=== PATIENT | male | born 1945 | race Caucasian/White ===

== ENCOUNTER 2019-10-31 08:15 | Day surgery (SDC) | payer OTHER, SELFPAY ==
[2019-10-31] VITALS (7 sets, daily range): BP systolic 140–172; BP diastolic 92–106; PULSE 74–94; RESP 12–20; TEMP 36.6–36.7; O2SAT 94–100
[2019-10-31] MEDS: sodium chloride 0.9% 1,000 ML 30 ML IV (07:36)
--- NOTE | 2019-10-31 07:59 | ANES.PREANES ---
Pre-Anesthetic Assessment Pre-Anesthetic Assessment: Height/Weight: Height 1.78 m Weight 92.986 kg Preop Diagnosis: Symptomatic left inguinal hernia Proposed Procedure: Operation Date: 10/31/19 08:45 Proposed Procedures p Laparoscopic Inguinal Hernia Repair w/Mesh 09509 k40.90(Left) - Kobi Campos MD Last intake: Intake Last Liquid Date 10/30/19 Last Liquid Time 15:30 Last Solid Date 10/30/19 Last Solid Time 15:00 Social: Social History: No alcohol and No tobacco Exam: Pre-Anes Outpt Exam: alert, oriented x 3, clear to auscultation bilaterally and regular rate & rhythm Airway: Submandibular: WNL Cervical ROM: WNL MP: 2 Dentition: Other (ok) History/ROS: No significant history except as noted Pulmonary: Pulmonary: Sleep apnea CV/HEM: CV/HEM: HTN : : None reported Hepatic: Comments: fatty liver GI: GI: GERD Comments: not well controlled Metabolic: Metabolic: Hyperlipidemia Musc/skel: Musc/skel: OA/DJD Neuropsych: Neuropsych: Dementia Anesthetic Plan: ASA status: III Anesthesia: Anesthesia Evaluation and General Risk of > 500 ml blood loss (7ml/kg in children): No Other Pertinent Information: slow to wake, very sensitive Meds/Allergies Current Medications: Current Medications Generic Name Dose Route Start Last Admin Trade Name Freq PRN Reason Stop Dose Admin Sodium Chloride 1,000 mls @ 30 ml s/hr 10/31/19 07:30 10/31/19 07:36 Sodium Chloride 0.9% IV 11/01/19 07:29 30 mls/hr .Q24H NURY Administration PFSH Anesthesia PFSH: Medical History Abdominal pain (Acute) Constipation (Acute) Diverticulosis (Acute) Dysphagia (Acute) GERD (gastroesophageal reflux disease) (Acute) Hiatal hernia (Acute) Hyperlipidemia (Acute) Hypertension (Acute) IBS (irritable bowel syndrome) (Acute) Left inguinal hernia (Acute) Major depressive disorder (Acute) Surgical History History of colonoscopy (Acute) Family History Father Cancer lung Family/Other Diabetes Hypertension sister Denies family history of Anesthesia complication Bleeding disorder Social History Smoking and tobacco status: never smoked Second hand smoke exposure: No Alcohol intake: never Adopted: No Caregiver/support person: Yes Lives independently: Yes Household members: spouse Housing: House Marital status: Highest education level completed: High School Graduate service: Yes (12 years with [employer]) Current occupational status: retired Current occupational exposures/hazards: No Pets and animals: No History of recent travel: Yes Leisure activites: exercise Sexually active: No Current gender identity: Male Tessa/Latter Day: Hinduism Special tessa needs: No Agree to transfusion: No Financial difficulty paying for basics: Decline to Answer Data Anesthesia Cardiac Studies: No Data to Display
--- NOTE | 2019-10-31 08:11 | P.HPUD_ITS ---
H&P update H&P Update: DATE OF SURGERY/PROCEDURE: 10/31/19 DATE H&P PERFORMED: H&P UPDATE INFORMATION: H&P completed within last 30 days and No changes to prior documentation PREOP DIAGNOSIS: Symptomatic left groin hernia PLANNED PROCEDURE: Operation Date: 10/31/19 08:45 Proposed Procedures p Laparoscopic Inguinal Hernia Repair w/Mesh 54245 k40.90(Left) - Kobi Campos MD Full H&P Medications/Allergies: Current Medications: Current Medications Generic Name Dose Route Start Last Admin Trade Name Freq PRN Reason Stop Dose Admin Sodium Chloride 1,000 mls @ 30 ml s/hr 10/31/19 07:30 10/31/19 07:36 Sodium Chloride 0.9% IV 11/01/19 07:29 30 mls/hr .Q24H NURY Administration Perinent History: Medical/Surgical History: Medical History (Updated 10/31/19 @ 08:00 by Rogelio Franks MD) Abdominal pain (Acute) Constipation (Acute) Diverticulosis (Acute) Dysphagia (Acute) GERD (gastroesophageal reflux disease) (Acute) Hiatal hernia (Acute) Hyperlipidemia (Acute) Hypertension (Acute) IBS (irritable bowel syndrome) (Acute) Left inguinal hernia (Acute) Major depressive disorder (Acute) Family History: Family History (Updated 10/25/19 @ 14:42 by Vira Good RN) Father Cancer lung Family/Other Diabetes Hypertension sister Denies family history of Anesthesia complication Bleeding disorder Social History: Social History Smoking and tobacco status: never smoked Second hand smoke exposure: No Alcohol intake: never Adopted: No Caregiver/support person: Yes Lives independently: Yes Household members: spouse Housing: House Marital status: Highest education level completed: High School Graduate service: Yes (12 years with [employer]) Current occupational status: retired Current occupational exposures/hazards: No Pets and animals: No History of recent travel: Yes Leisure activites: exercise Sexually active: No Current gender identity: Male Tessa/Pentecostalism: Pentecostalism Special tessa needs: No Agree to transfusion: No Financial difficulty paying for basics: Decline to Answer
[2019-10-31] MEDS: lidocaine 2% INJ 20 mL INJECTION (10:16)
--- NOTE | 2019-10-31 10:28 | SUR.OPER ---
[id number] - Pt's Whitley notified of surgery start via her cell phone [id number] - Whitley updated on surgery progress and pt status via her cell phone.
--- NOTE | 2019-10-31 10:34 | P.OP_ITS ---
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 Patient was identified in the holding area ,patient was transferred to the operating room where he was placed in supine position, with both arms were tucked, antibiotic was given with induction, endotracheal tube was placed per anesthesia, Goode catheter was inserted by the circulating nurse and revealed clear urine, prep and drape of the abdomen was done under the usual sterile technique as well as the scrotal area. Time-out was done verifying the patient's name/date of /planned procedure destination after the procedure, all were in agreement. SCDs confirmed to be functioning, preoperative antibiotics administered per protocol, and beta munira protocol was confirmed. A vertical skin incision of 1.2 cm was made with 11 blade knife through the supra umbilicus , incision was carried down to the subcutaneous tissue and deepened to identify the anterior fascia, two stay sutures were applied to the fascia, and safe entrance to the abdominal cavity was achieved, a Singer trocar technique safe entry to the abdominal cavity was achieved verified by using 10 mm zero degree laparoscopy, switched to a 30 degrees scope,low flow followed by a higher flow of CO2 gas up to 15 mmHg. There was no evidence of injury to intra-abdominal structures from the port entry, attention was deviated to both groins, there was a large direct hernia defect with herniation of peritoneum and preperitoneal fat was noted on the right side, two 5 mm ports were placed on the right and left lateral aspect of the abdomen slightly above the level of the umbilicus, under direct visualiza tion, anesthesia 2% lidocaine local was injected at all trocar sites prior to incisions. Patient was noticed to have a large left inguinal hernia including the sigmoid colon The peritoneum above the level of the iliopubic tract was incised to the left of the midline and dissection was performed to create a preperitoneal space medial to lateral aspect up to anterior superior iliac spine on the left side. Dissection was continued onto the medial aspect and the left spermatic was identified, there was evidence of direct and Indirect inguinal hernia .the sac was dissected. As it applied medial to the left inferior epigastric vessels/ dissection was performed to clear the space lateral to the spermatic cord and dorsomedial to it, the hernia sac was reduced and retracted far back, so there w as an evidence of a small indirect inguinal hernia that was dissected. Then a large left 3-D mesh was rolled and placed into the abdominal cavity through the Singer port, after the mesh was introduced it was positioned to lie in the myopectineal orifice and the mesh was unrolled and this covered the entire my myope pectineal orifice. Intra-abdominal pressure was dropped to 12 mmHg to help placement of the mesh good position On the lateral aspect of the mesh extended up to the anterior superior iliac spine on the medial aspect the mesh crossed the midline onto the right side, then using absorbable tacks, placed above the iliopubic tract onto the rectus abdominis muscle on the medial aspect and also to the lateral abdominal wall superomedial to the sacroiliac spine, then the mesh was also anchored to the pubis and the Jf's ligament inferiorly. The peritoneal leaflets were then brought together to cover the mesh and isolated from the other viscera, extra tacks were used to secure the peritoneum in good position. Final look demonstrated good hemostasis and the mesh in good position A total of 20 mL Exparel 40 ml Normal saline 20 ml bupivacaine 0.25% were injected at the remaining of the tacks site and trocar sites as well Final look demonstrated good hemostasis, then the abdomen was desufflated while holding the peritoneum to make sure there is no herniation blue the mesh. All ports were removed. Then the fascia on the supra umbilical fascial defect was closed using 0 Vicryl under direct visualization using fascial closure device Get Rose. All skin incisions were closed with 4-0 Monocryl subcuticular suture and Dermabond was applied. The patient tolerated the procedure well, Goode catheter was taken out ,got extubated and was transferred to the recovery area in stable condition All counts of instruments, needles and sponges were completed I was present for the whole entire procedure
--- NOTE | 2019-10-31 10:47 | SUR.PHASEI ---
1045- RECEIVED PATIENT IN PACU FROM OR VIA [facility]. RESP ARE EVEN AND NONLABORED. SIMPLE MASK APPLIED AT 6LPM, SAT 100%. HE IS LETHARGIC. EXOFIN TO UMBILICUS IS DRY AND INTACT WITH FLUFFS AND SCROTAL SUPPORT. NO S/S PAIN OR NAUSEA
== END 2019-10-31 13:07 | disposition home or self-care (01) ==
LOC: OR 13:33
PROVIDERS: Family Provider Family Medicine; PCP Family Medicine; Visit Provider Surgery
PROC: (CPT 49650; principal; 2019-10-31 08:15)
DX: K40.30 Unilateral inguinal hernia, with obstruction, without gangrene, not specified as recurrent (principal); E78.5 Hyperlipidemia, unspecified; K21.9 Gastro-esophageal reflux disease without esophagitis; I10 Essential (primary) hypertension; F32.9 Major depressive disorder, single episode, unspecified; Z83.3 Family history of diabetes mellitus; Z82.49 Family history of ischemic heart disease and other diseases of the circulatory system; G47.30 Sleep apnea, unspecified; M19.90 Unspecified osteoarthritis, unspecified site; F03.90 Unspecified dementia, unspecified severity, without behavioral disturbance, psychotic disturbance, mood disturbance, and anxiety
CPT/HCPCS: 49650; 12345; 51702; 96365; C1781; C9290; J0131; J0690; J2001; J2405; J2704; J3010; J3490; J7030

== ENCOUNTER 2022-02-10 10:53 | Emergency (ER) | payer OTHER, SELFPAY ==
--- NOTE | 2022-02-10 11:06 | ED_ITS ---
HPI - Chest Pain General: Stated Complaint: Chest Pain Time Seen by Provider: 02/10/22 10:55 [facility] [place] ED PFSH: Medical History Abdominal pain Constipation Diverticulosis Dysphagia GERD (gastroesophageal reflux disease) Hiatal hernia Hyperlipidemia Hypertension IBS (irritable bowel syndrome) Left inguinal hernia Major depressive disorder Surgical History History of colonoscopy History of left inguinal hernia repair (~10/2019) Family History Father Cancer lung Family/Other Diabetes Hypertension sister Denies family history of Anesthesia complication Bleeding disorder Social History Smoking and tobacco status: never smoked Second hand smoke exposure: No Alcohol intake: never Adopted: No Caregiver/support person: Yes Lives independently: Yes Household members: spouse Housing: House Marital status: Highest education level completed: High School Graduate service: Yes (12 years with [employer]) branch: [employer] Current occupational status: retired Current occupational exposures/hazards: No Pets and animals: No History of recent travel: Yes Leisure activites: exercise Sexually active: No Current gender identity: Male Tessa/Jain: Restorationism Special tessa needs: No Agree to transfusion: No Financial difficulty paying for basics: Decline to Answer Discharge Plan Discharge Condition: Stable Prescriptions: No Action citalopram 40 mg tablet 20 mg PO QDAY 0RF donepezil 10 mg tablet 10 mg PO QDAY 0RF enalapril maleate 5 mg tablet 5 mg PO QDAY 0RF famotidine 20 mg tablet 20 mg PO BID 0RF omega-3 fatty acids [Fish Oil Concentrate] 1,000 mg capsule 1,000 mg PO QDAY 0RF polyethylene glycol 3350 17 gram/dose powder 17 gm PO QDAY 0RF simvastatin 80 mg tablet 80 mg PO QDAY 0RF sucralfate 1 gram tablet 1 gm PO Q6H 0RF dicyclomine 20 mg tablet 20 mg PO BID 0RF cyanocobalamin (vitamin B-12) 100 mcg tablet 100 mcg PO QDAY 0RF aspirin 81 mg tablet,delayed release (DR/EC) 81 mg PO QDAY 0RF Hold Instructions: Resume on 11/02/19. Complete Multivitamin Tablet 1 tab PO QDAY 0RF [place] 5-325 mg tablet 1 tab PO Q6H PRN (Reason: pain) Qty: 28 0RF Referrals: Kiran Sharma [Primary Care Provider] - Coding Level of Care Code ED Pyrotechnic Mixer for Neeta Bucio
--- NOTE | 2022-02-10 11:07 | XR_ITS ---
WS: [id number] XR chest 1V portable [id number] REASON FOR EXAM: dyspnea/cough FINDINGS: Moderate tortuosity of the thoracic aorta without aneurysmal dilatation. Normal heart size. Calcified granulomatous disease in both hemithoraces. No acute pulmonary parenchymal or pleural abnormality. Bony thorax intact. XR/XR chest 1V portable [id number] IMPRESSION: No acute chest abnormality.
[2022-02-10 11:22] VITALS: BP 145/97; PULSE 88; RESP 18; TEMP 36.9; O2SAT 97
[2022-02-10 11:37] VITALS: BP 145/97; PULSE 88; RESP 18; TEMP 36.9; O2SAT 97
--- NOTE | 2022-02-10 11:47 | ED_ITS ---
HPI - Chest Pain General: Chief Complaint: Chest Pain Stated Complaint: Chest Pain Time Seen by Provider: 02/10/22 10:55 Source: patient Mode of arrival: ambulatory Limitations: no limitations History of Present Illness: 76-year-old male with last 3 days intermittently had episodes of shortness of breath and chest discomfort. He is not have any any at this time. No vomiting or diarrhea no radiation of the symptoms. He is not noticing thing that exacerbates or relieves his symptoms. MD complaint: chest pain Onset (ago): minute(s) Timing of current episode: episodic Prior episodes: No Onset: during rest Pain location: left chest Pain radiation: none Severity: mild Quality: aching and heaviness Relieving factors: nothing Exacerbating factors: nothing Associated symptoms: Reports dyspnea; Deny abdominal pain, diaphoresis, fever(s), leg edema, nausea, palpitations, sense of impending doom, syncope or vomiting Treatment prior to arrival: none Review of Systems Const: Denies: fever(s) or diaphoresis ENMT: Denies: throat pain, ear or mastoid pain, nasal discharge or nasal congestion Card: Denies: palpitations or syncope Resp: Reports: dyspnea GI: Denies: abdominal pain, nausea or vomiting : Denies: flank pain, difficulty urinating, dysuria, urinary frequency or urinary urgency Skin/Breast: Denies: rash or pruritus [facility] PFSH: Medical History (Updated 02/10/22 @ 14:25 by Raman Riddle DO) Abdominal pain Constipation Diverticulosis Dysphagia GERD (gastroesophageal reflux disease) Hiatal hernia Hyperlipidemia Hypertension IBS (irritable bowel syndrome) Left inguinal hernia Major depressive disorder Surgical History History of colonoscopy History of left inguinal hernia repair (~10/2019) Family History Father Cancer lung Family/Other Diabetes Hypertension sister Denies family history of Anesthesia complication Bleeding disorder Social History Smoking and tobacco status: never smoked Second hand smoke exposure: No Alcohol intake: never Adopted: No Caregiver/support person: Yes Lives independently: Yes Household members: spouse Housing: House Marital status: Highest education level completed: High School Graduate service: Yes (12 years with [employer]) branch: [employer] Current occupational status: retired Current occupational exposures/hazards: No Pets and animals: No History of recent travel: Yes Leisure activites: exercise Sexually active: No Current gender identity: Male Tessa/Restorationism: Episcopalian Special tessa needs: No Agree to transfusion: No Financial difficulty paying for basics: Decline to Answer Physical Exam Const: COMMON NORMALS: no acute distress GENERAL APPEARANCE: cooperative and comfortable ORIENTATION/CONSCIOUSNESS: Yes awake, Yes oriented to person, Yes oriented to place and Yes oriented to time HENMT: COMMON NORMALS: normocephalic, atraumatic and hearing grossly normal bilaterally HEAD & SCALP: normocephalic and atraumatic Neck/C-Spine: COMMON NORMALS: no JVD Resp: COMMON NORMALS: normal respiratory effort, No retractions, No use of accessory muscles and clear to auscultation bilaterally AUSCULTATION: clear to auscultation bilaterally Cardio: COMMON NORMALS: no JVD, regular rate, regular rhythm and No murmurs present (Cardio) RATE: regular rate RHYTHM: regular rhythm GI: COMMON NORMALS: Soft to palpation and No hepatosplenomegaly present AUSCULTATION: Yes normoactive bowel sounds PALPATION: Yes Soft to palpation, No Tenderness to palpation present (GI), No Guarding due to palpation present (GI) and Yes No hepatosplenomegaly present Extremity: COMMON NORMALS: normal to inspection, capillary refill normal, no clubbing, cyanosis or edema, no calf tenderness and no pedal edema Neuro: SENSORIUM/ORIENTATION: Yes oriented to person, Yes oriented to place and Yes oriented to time Skin: COMMON NORMALS: no rashes or lesions noted GENERAL SKIN EXAM: no rashes or lesions noted Course Vital Signs: Vital signs: Vital Signs Temperature 98.5 F 02/10/22 11:37 Pulse Rate 88 02/10/22 11:37 Respiratory Rate 18 02/10/22 11:37 Blood Pressure 145/97 02/10/22 11:37 Pulse Oximetry 97 02/10/22 11:37 MDM - Chest Pain Medical Decision Making No symptoms at this time. We will go and discharge patient home we will set him up for outpatient stress testing,. Because he wants to do this through the [facility] cardiology first. Medical Records I reviewed the patient's medical records. Lab Data I reviewed the patient's lab results. : 02/10/22 11:45 02/10/22 11:45 Radiology Impressions Chest X-Ray 02/10/22 11:07 IMPRESSION: No acute chest abnormality. Laboratory Results WBC 8.0 10^3/uL (4.0-10.0) 02/10/22 11:45 RBC 5.43 10^6/uL (4.1-5.3) H 02/10/22 11:45 Hgb 15.9 g/dL (11.7-16.6) 02/10/22 11:45 Hct 47.3 % (42.0-52.0) 02/10/22 11:45 MCV 87.1 fl (80-94) 02/10/22 11:45 MCH 29.3 pg (28.0-34.0) 02/10/22 11:45 MCHC 33.6 g/dL (30.0-36.0) 02/10/22 11:45 RDW 12.6 % (12.1-15.1) 02/10/22 11:45 Plt Count 165 10^3/cmm (130-400) 02/10/22 11:45 MPV 10.6 fL (7.4-10.4) H 02/10/22 11:45 Neut % (Auto) 58.8 % 02/10/22 11:45 Lymph % (Auto) 26.1 % 02/10/22 11:45 [place] % (Auto) 11.9 % 02/10/22 11:45 Eos % (Auto) 2.0 % 02/10/22 11:45 Baso % (Auto) 0.9 % 02/10/22 11:45 Neut # (Auto) 4.68 10^3/uL (1.8-7.7) 02/10/22 11:45 Lymph # (Auto) 2.1 10^3/uL (0.8-4.8) 02/10/22 11:45 [place] # (Auto) 1.0 10^3/uL (0.2-0.9) H 02/10/22 11:45 Eos # (Auto) 0.2 10^3/uL (0.0-0.8) 02/10/22 11:45 Baso # (Auto) 0.1 10^3/uL (0.0-0.1) 02/10/22 11:45 Nucleated RBC % (auto) 0 % 02/10/22 11:45 Nucleated RBCs # 0.0 /100WBC 02/10/22 11:45 Sodium 137 mmol/L (136-145) 02/10/22 11:45 Potassium 4.4 mmol/L (3.5-5.1) 02/10/22 11:45 Chloride 101 mmol/L (98-107) 02/10/22 11:45 Carbon Dioxide 23 mmol/L (22-29) 02/10/22 11:45 Anion Gap 17.4 (5-19) 02/10/22 11:45 BUN 13 mg/dL (8-23) 02/10/22 11:45 Creatinine 0.9 mg/dL (0.7-1.2) 02/10/22 11:45 GFR Calculation Not Reportable 02/10/22 11:45 Glucose 96 mg/dL (65-115) 02/10/22 11:45 Calculated Osmolality 284 mOsm/kg (285-295) L 02/10/22 11:45 Calcium 9.9 mg/dL (8.5-10.5) 02/10/22 11:45 Total Bilirubin 0.5 mg/dL (0.15-1.2) 02/10/22 11:45 AST 31 U/L (0-40) 02/10/22 11:45 ALT 33 U/L (0-41) 02/10/22 11:45 Alkaline Phosphatase 40 IU/L (40-130) 02/10/22 11:45 Troponin T Baseline 6 ng/L (0-15) 02/10/22 11:45 Troponin T 120 Minute 6.44 ng/L (0-15) 02/10/22 13:26 Delta Troponin T 0.44 ABS# (0-10) 02/10/22 13:26 Total Protein 7.9 g/dL (6.6-8.7) 02/10/22 11:45 Albumin 4.9 g/dL (3.5-5.2) 02/10/22 11:45 Globulin 3.0 g/dL (1.3-4.6) 02/10/22 11:45 Discharge Plan Discharge Patient Disposition: Home Clinical Impression: Atypical chest pain, Hypertension Condition: Stable Prescriptions: New isosorbide mononitrate 30 mg tablet extended release 24 hr 30 mg PO DAILY Qty: 30 0RF No Action donepezil 10 mg tablet 10 mg PO BEDTIME 0RF enalapril maleate 5 mg tablet 2.5 mg PO QAM 0RF famotidine 20 mg tablet 20 mg PO BID 0RF polyethylene glycol 3350 17 gram/dose powder 17 gm PO BEDTIME 0RF simvastatin 80 mg tablet 40 mg PO BEDTIME 0RF dicyclomine 20 mg tablet 20 mg PO BID 0RF Fish Oil Concentrate 1,000 mg Capsule 2,000 mg PO BID 0RF Men's Multivitamin 400-20-300 mcg Tablet 1 tab PO DAILY 0RF Vitamin B-12 1 tab PO DAILY 0RF Vitamin C 1 tab PO DAILY 0RF Vitamin D3 1 cap PO DAILY 0RF Discharge Orders: Discharge ED (Routine); Ordered 02/10/22 Ordered By: Raman Riddle Referrals: Kiran Sharma [Primary Care Provider] - Discharge Diet: Usual diet Discharge Activity: Limit activity as instructed Patient Instructions: Opioid Safety Activity Restrictions/Additional Instructions: Avoid strenuous activity. Case management make arrangements for you to follow- up with cardiology. Coding Level of Care Code ED Laboratory Mechanic Helper for Neeta Fwd Exam Comprehensive
[2022-02-10] MEDS: aspirin 81 mg Chew Tablet 324 MG PO (12:04)
[2022-02-10 12:29] LABS: Troponin(5th) Baseline 6 ng/L (0-15)
--- NOTE | 2022-02-10 13:08 | ECG_ITS ---
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 Measurements Intervals [place] Rate: 70 P: 44 VT: 200 QRS: 59 QRSD: 89 T: 47 QT: 379 QTc: 410 Interpretive Statements SINUS RHYTHM Compared to ECG 02/10/2022 11:25:57 No significant changes Electronically Signed On 02-10-2022 17:30:19 CDT by Jared Rae M.D. [id number]
[2022-02-10 13:20] LABS: Basophils # 0.1 10^3/uL (0.0-0.1); Basophils % 0.9 %; Eosinophils # 0.2 10^3/uL (0.0-0.8); Hematocrit 47.3 % (42.0-52.0); Hemoglobin 15.9 g/dL (11.7-16.6); Lymphocytes # 2.1 10^3/uL (0.8-4.8); Lymphocytes % 26.1 %; Mean Corpuscular HGB Conc 33.6 g/dL (30.0-36.0); Mean Corpuscular Hemoglobin 29.3 pg (28.0-34.0); Mean Corpuscular Volume 87.1 fl (80-94); Mean Platelet Volume 10.6 fL (7.4-10.4); Monocytes % 11.9 %; Neutrophils # 4.68 10^3/uL (1.8-7.7); Neutrophils % 58.8 %; Nucleated Red Blood Cells % 0 %; Platelet Count 165 10^3/cmm (130-400); Red Blood Count 5.43 10^6/uL (4.1-5.3); Red Cell Distribution Width 12.6 % (12.1-15.1)
[2022-02-10 13:30] LABS: Alanine Aminotransferase 33 U/L (0-41); Albumin Level 4.9 g/dL (3.5-5.2); Alkaline Phosphatase 40 IU/L (40-130); Blood Urea Nitrogen 13 mg/dL (8-23); Calcium 9.9 mg/dL (8.5-10.5); Carbon Dioxide 23 mmol/L (22-29); Chloride 101 mmol/L (98-107); Glucose 96 mg/dL (65-115); Osmolality Calculated 284 mOsm/kg (285-295); Sodium 137 mmol/L (136-145); Total Bilirubin 0.5 mg/dL (0.15-1.2); Total Protein 7.9 g/dL (6.6-8.7)
[2022-02-10 13:31] LABS: Anion Gap 17.4 (5-19); Aspartate Amino Transferase 31 U/L (0-40); Potassium 4.4 mmol/L (3.5-5.1)
[2022-02-10 14:00] LABS: Troponin 5 2HR 6.44 ng/L (0-15)
[2022-02-10 14:11] LABS: Troponin 5 2HR Delta 0.44 ABS# (0-10)
[2022-02-10 14:51] VITALS: BP 143/88; PULSE 78; RESP 20; O2SAT 97
--- NOTE | 2022-02-10 17:08 | ECG_ITS ---
[facility] Test Date: 2022-02-10 Pat Name: Santos Delaney Department: Room: Gender: Male Lactation Nurse: : 1945 Requested By: Raman Haynes Order Number: [id number] Noe MD: Jared Rae M.D. Measurements Intervals [place] Rate: 84 P: 56 VA: 185 QRS: 64 QRSD: 87 T: 58 QT: 355 QTc: 421 Interpretive Statements SINUS RHYTHM POSSIBLE LEFT ATRIAL ENLARGEMENT [-0.1mV P-WAVE IN V1/V2] Compared to ECG 09/21/2019 15:12:10 No significant changes Electronically Signed On 02-10-2022 17:30:43 CDT by Jared Rae M.D. [email or web address]
== END 2022-02-10 14:54 | disposition home or self-care (01) ==
PROVIDERS: Emergency Provider Family Medicine; Family Provider Family Medicine; PCP Family Medicine
DX: R07.89 Other chest pain (principal); I10 Essential (primary) hypertension; E78.5 Hyperlipidemia, unspecified; K21.9 Gastro-esophageal reflux disease without esophagitis
CPT/HCPCS: 71045; 80053; 84484; 85025; 93005; 99284

== ENCOUNTER 2022-02-11 17:40 | Emergency (ER) | payer OTHER, SELFPAY ==
[2022-02-11] VITALS (7 sets, daily range): BP systolic 112–139; BP diastolic 71–85; PULSE 82–102; RESP 16–18; TEMP 36.8; O2SAT 94–95; BMI 30.1
--- NOTE | 2022-02-11 18:20 | XRR_ITS ---
PROCEDURE INFORMATION: Exam: XR Chest Exam date and time: 02/11/2022 6:26 PM Age: 76 years old Clinical indication: Other: Dizzy TECHNIQUE: Imaging protocol: XR of the chest. Views: 1 view. COMPARISON: CR XR chest 1V portable [id number] 02/10/2022 11:21 AM FINDINGS: Lungs: Unremarkable. No consolidation. Pleural spaces: Unremarkable. No pleural effusion. No pneumothorax. Heart/Mediastinum: Unremarkable. No cardiomegaly. Bones/joints: Unremarkable. XR/XR chest 1V portable [id number] IMPRESSION: No acute findings.
--- NOTE | 2022-02-11 18:20 | CTR_ITS ---
PROCEDURE INFORMATION: Exam: CT Head Without Contrast Exam date and time: 02/11/2022 7:08 PM Age: 76 years old Clinical indication: Weakness, extremity and other: Low blood pressure; Bilateral; Additional info: Dizzy TECHNIQUE: Imaging protocol: Computed tomography of the head without contrast. Radiation optimization: All CT scans at this facility use at least one of these dose optimization techniques: automated exposure control; mA and/or kV adjustment per patient size (includes targeted exams where dose is matched to clinical indication); or iterative reconstruction. COMPARISON: CT neck w con* [id number] 09/12/2019 7:31 AM RADIATION DOSE METRICS: Total DLP (mGy-cm): 864.7 FINDINGS: Brain: No hemorrhage. No edema. Mild diffuse cerebral atrophy and sequela of chronic small vessel ischemic disease. No mass effect. Cerebral ventricles: No ventriculomegaly. Paranasal sinuses: Visualized sinuses are unremarkable. No fluid levels. Mastoid air cells: Visualized mastoid air cells are well aerated. Bones/joints: Unremarkable. No acute fracture. Soft tissues: Unremarkable. CT/CT head wo con* [id number] IMPRESSION: No acute intracranial abnormality.
--- NOTE | 2022-02-11 18:25 | W.ED.GENADLT ---
HPI - General Adult General: Chief complaint: General Medical Stated complaint: Low Bloodpressure extreme Weakness Time Seen by Provider: 02/11/22 18:00 Source: patient Mode of arrival: ambulatory Limitations: no limitations History of Present Illness: 76-year-old male who states that over the last 2 days has been having severe vertigo and dizziness getting much worse today. He states is not able to ambulate he states anytime he tries to move he feels like it spinning and he has to get on his knees and crawl. He has severe nausea and vomiting states that somewhat improved with rest. Denies any chest pain denies any fevers no other deficits noted Associated symptoms: Deny chest pain, dyspnea, nausea, rash or vomiting Review of Systems Const: Denies: fever(s), chills, body aches or change in appetite Eyes: Denies: blurry vision or eye discomfort ENMT: Denies: throat pain or dental pain Card: Denies: chest pain Resp: Denies: dyspnea GI: Denies: abdominal pain, nausea, vomiting or diarrhea : Denies: dysuria Musc: Denies: neck pain or back pain Skin/Breast: Denies: rash Neuro: Reports: dizziness and vertigo Psych: Denies: depression Margarito/Lymph: Denies: easy bruising All/Imm: Denies: urticaria PFSH ED PFSH: Medical History (Updated 02/11/22 @ 21:07 by Rogelio Tillman MD) Abdominal pain Constipation Diverticulosis Dysphagia GERD (gastroesophageal reflux disease) Hiatal hernia Hyperlipidemia Hypertension IBS (irritable bowel syndrome) Left inguinal hernia Major depressive disorder Surgical History History of colonoscopy History of left inguinal hernia repair (~10/2019) Family History Father Cancer lung Family/Other Diabetes Hypertension sister Denies family history of Anesthesia complication Bleeding disorder Social History Smoking and tobacco status: never smoked Second hand smoke exposure: No Alcohol intake: never Adopted: No Caregiver/support person: Yes Lives independently: Yes Household members: spouse Housing: House Marital status: Highest education level completed: High School Graduate service: Yes (12 years with [employer]) branch: [employer] Current occupational status: retired Current occupational exposures/hazards: No Pets and animals: No History of recent travel: Yes Leisure activites: exercise Sexually active: No Current gender identity: Male Tessa/Adventist: Mormonism Special tessa needs: No Agree to transfusion: No Financial difficulty paying for basics: Decline to Answer Physical Exam Const: COMMON NORMALS: no acute distress, patient oriented x3 and healthy appearing HENMT: COMMON NORMALS: normocephalic and atraumatic HEAD & SCALP: normocephalic and atraumatic Eye: COMMON NORMALS: Equal, round and reactive pupils present and EOMs intact bilaterally PUPIL: Yes Equal, round and reactive pupils present OTHER: Resting nystagmus Neck/C-Spine: COMMON NORMALS: full ROM and supple Chest: COMMONS NORMALS: normal inspection of the chest and normal palpation of entire chest wall Resp: COMMON NORMALS: normal respiratory effort, No retractions, No use of accessory muscles and clear to auscultation bilaterally AUSCULTATION: clear to auscultation bilaterally Cardio: COMMON NORMALS: regular rate, regular rhythm and No murmurs present (Cardio) RATE: regular rate RHYTHM: regular rhythm GI: COMMON NORMALS: Normal to inspection, nondistended, normoactive bowel sounds present, Soft to palpation, non-tender and no masses PALPATION: Yes Soft to palpation Extremity: COMMON NORMALS: normal to inspection and full ROM Neuro: COMMON NORMALS: patient oriented x3, moves all extremities and no focal motor deficits Psych: COMMON NORMALS: mental status grossly normal, Normal thought process present and cooperative THOUGHT PROCESS: Normal thought process present Skin: COMMON NORMALS: no rashes or lesions noted and no wounds GENERAL SKIN EXAM: no rashes or lesions noted Course Vital Signs: Vital signs: Vital Signs Temperature 98.2 F 02/11/22 17:53 Pulse Rate 88 02/11/22 19:25 Respiratory Rate 18 02/11/22 17:53 Blood Pressure 119/83 02/11/22 19:25 Pulse Oximetry 94 02/11/22 19:25 [facility] [place] - General Adult Medical Decision Making Patient presents with vertigo is likely peripheral in nature is worse with sudden movements improved with rest his symptoms have resolved here after Antivert I ambulated him he is able to ambulate the halls without any problems no more vertigo at all CTA was normal no signs of a posterior stroke I feel he is stable for discharge he is follow-up with PCP next week return if worsening will prescribe him Antivert for home he understands agrees to plan. Lab Data : 02/11/22 18:45 02/11/22 18:45 Radiology Impressions Chest X-Ray 02/11/22 18:20 IMPRESSION: No acute findings. Head CT 02/11/22 18:20 IMPRESSION: No acute intracranial abnormality. Head/Neck CTA 02/11/22 19:59 IMPRESSION: No large vessel stenosis or occlusion. IMPRESSION: There is no significant stenosis or occlusion in the carotid or vertebral arteries in the neck. REFERENCES: NASCET CRITERIA. The degree of internal carotid artery stenosis is based on NASCET criteria. Normal is no stenosis. Mild is less than 50% stenosis. Moderate is 50-69% stenosis. Severe is 70% to 99% stenosis. Total occlusion is no detectable patent lumen. Laboratory Results WBC 7.9 10^3/uL (4.0-10.0) 02/11/22 18:45 RBC 5.10 10^6/uL (4.1-5.3) 02/11/22 18:45 Hgb 15.2 g/dL (11.7-16.6) 02/11/22 18:45 Hct 45.2 % (42.0-52.0) 02/11/22 18:45 MCV 88.6 fl (80-94) 02/11/22 18:45 MCH 29.8 pg (28.0-34.0) 02/11/22 18:45 MCHC 33.6 g/dL (30.0-36.0) 02/11/22 18:45 RDW 12.7 % (12.1-15.1) 02/11/22 18:45 Plt Count 163 10^3/cmm (130-400) 02/11/22 18:45 MPV 10.0 fL (7.4-10.4) 02/11/22 18:45 Neut % (Auto) 59.0 % 02/11/22 18:45 Lymph % (Auto) 25.1 % 02/11/22 18:45 [place] % (Auto) 12.8 % 02/11/22 18:45 Eos % (Auto) 2.1 % 02/11/22 18:45 Baso % (Auto) 0.6 % 02/11/22 18:45 Neut # (Auto) 4.67 10^3/uL (1.8-7.7) 02/11/22 18:45 Lymph # (Auto) 2.0 10^3/uL (0.8-4.8) 02/11/22 18:45 [place] # (Auto) 1.0 10^3/uL (0.2-0.9) H 02/11/22 18:45 Eos # (Auto) 0.2 10^3/uL (0.0-0.8) 02/11/22 18:45 Baso # (Auto) 0.1 10^3/uL (0.0-0.1) 02/11/22 18:45 Nucleated RBC % (auto) 0 % 02/11/22 18:45 Nucleated RBCs # 0.0 /100WBC 02/11/22 18:45 PT 14.00 SECONDS (12.1-14.9) 02/11/22 18:45 INR 1.05 (0.8-1.2) 02/11/22 18:45 Sodium 137 mmol/L (136-145) 02/11/22 18:45 Potassium 4.2 mmol/L (3.5-5.1) 02/11/22 18:45 Chloride 103 mmol/L (98-107) 02/11/22 18:45 Carbon Dioxide 25 mmol/L (22-29) 02/11/22 18:45 Anion Gap 13.2 (5-19) 02/11/22 18:45 BUN 13 mg/dL (8-23) 02/11/22 18:45 Creatinine 0.8 mg/dL (0.7-1.2) 02/11/22 18:45 GFR Calculation Not Reportable 02/11/22 18:45 Glucose 101 mg/dL (65-115) 02/11/22 18:45 Calculated Osmolality 284 mOsm/kg (285-295) L 02/11/22 18:45 Calcium 9.1 mg/dL (8.5-10.5) 02/11/22 18:45 Total Bilirubin 0.3 mg/dL (0.15-1.2) 02/11/22 18:45 AST 24 U/L (0-40) 02/11/22 18:45 ALT 22 U/L (0-41) 02/11/22 18:45 Alkaline Phosphatase 40 IU/L (40-130) 02/11/22 18:45 Total Protein 7.4 g/dL (6.6-8.7) 02/11/22 18:45 Albumin 4.3 g/dL (3.5-5.2) 02/11/22 18:45 Globulin 3.1 g/dL (1.3-4.6) 02/11/22 18:45 Discharge Plan Discharge Patient Disposition: Home Clinical Impression: Vertigo Condition: Stable Prescriptions: New Antivert 50 mg tablet 50 mg PO BID PRN (Reason: dizziness) Qty: 20 0RF No Action donepezil 10 mg tablet 10 mg PO BEDTIME 0RF enalapril maleate 5 mg tablet 2.5 mg PO QAM 0RF famotidine 20 mg tablet 20 mg PO BID 0RF polyethylene glycol 3350 17 gram/dose powder 17 gm PO BEDTIME 0RF simvastatin 80 mg tablet 40 mg PO BEDTIME 0RF dicyclomine 20 mg tablet 20 mg PO BID 0RF Fish Oil Concentrate 1,000 mg Capsule 2,000 mg PO BID 0RF Men's Multivitamin 400-20-300 mcg Tablet 1 tab PO DAILY 0RF Vitamin B-12 1 tab PO DAILY 0RF Vitamin C 1 tab PO DAILY 0RF Vitamin D3 1 cap PO DAILY 0RF isosorbide mononitrate 30 mg tablet extended release 24 hr 30 mg PO DAILY Qty: 30 0RF Discharge Orders: Discharge ED (Routine); Ordered 02/11/22 Ordered By: Rogelio Tillman Referrals: Kiran Sharma [Primary Care Provider] - 1-3 days Discharge Diet: Advance as tolerated Discharge Activity: Resume usual activity Patient Instructions: Vertigo (ED), Benign Paroxysmal Positional Vertigo (ED) Coding Level of Care Code ED Patient Relations Coordinator for Neeta Fwrosa Exam Comprehensive
[2022-02-11] MEDS: meclizine 25 mg tablet 50 MG PO (18:38)
[2022-02-11 18:56] LABS: Basophils # 0.1 10^3/uL (0.0-0.1); Basophils % 0.6 %; Eosinophils # 0.2 10^3/uL (0.0-0.8); Eosinophils % 2.1 %; Hematocrit 45.2 % (42.0-52.0); Hemoglobin 15.2 g/dL (11.7-16.6); Lymphocytes % 25.1 %; Mean Corpuscular HGB Conc 33.6 g/dL (30.0-36.0); Mean Corpuscular Hemoglobin 29.8 pg (28.0-34.0); Mean Corpuscular Volume 88.6 fl (80-94); Monocytes % 12.8 %; Neutrophils # 4.67 10^3/uL (1.8-7.7); Nucleated Red Blood Cells % 0 %; Platelet Count 163 10^3/cmm (130-400); Red Cell Distribution Width 12.7 % (12.1-15.1); White Blood Count 7.9 10^3/uL (4.0-10.0)
[2022-02-11 19:10] LABS: INR 1.05 (0.8-1.2)
[2022-02-11 19:27] LABS: Alanine Aminotransferase 22 U/L (0-41); Albumin Level 4.3 g/dL (3.5-5.2); Alkaline Phosphatase 40 IU/L (40-130); Blood Urea Nitrogen 13 mg/dL (8-23); Calcium 9.1 mg/dL (8.5-10.5); Carbon Dioxide 25 mmol/L (22-29); Chloride 103 mmol/L (98-107); Globulin 3.1 g/dL (1.3-4.6); Glucose 101 mg/dL (65-115); Osmolality Calculated 284 mOsm/kg (285-295); Sodium 137 mmol/L (136-145); Total Bilirubin 0.3 mg/dL (0.15-1.2); Total Protein 7.4 g/dL (6.6-8.7)
[2022-02-11 19:30] LABS: Anion Gap 13.2 (5-19); Aspartate Amino Transferase 24 U/L (0-40); Potassium 4.2 mmol/L (3.5-5.1)
--- NOTE | 2022-02-11 19:59 | CTR_ITS ---
PROCEDURE INFORMATION: Exam: CT Angiography Head With Contrast, Arteriography Exam date and time: 02/11/2022 8:34 PM Age: 76 years old Clinical indication: Patient HX: Weakness in lower extremities, dizziness, extreme HENSLEY; Additional info: Vertigo TECHNIQUE: Imaging protocol: Computed tomography angiography of the head with contrast. Exam focused on the arteries. 3D rendering (Not supervised by radiologist): MIP and/or 3D reconstructed images were created by the technologist. Radiation optimization: All CT scans at this facility use at least one of these dose optimization techniques: automated exposure control; mA and/or kV adjustment per patient size (includes targeted exams where dose is matched to clinical indication); or iterative reconstruction. Contrast material: OMNIPAQUE 350; Contrast volume: 55 ml; Contrast route: INTRAVENOUS (IV); COMPARISON: 1. CT head wo con* [id number] 02/11/2022 7:[address] neck w con* [id number] 09/12/2019 7:31 AM RADIATION DOSE METRICS: Total DLP (mGy-cm): 2275.47 FINDINGS: ANTERIOR CIRCULATION: Right internal carotid artery: Unremarkable. Intracranial segment is patent with no significant stenosis. No aneurysm. Right middle cerebral artery: Unremarkable. No occlusion or significant stenosis. No aneurysm. Right anterior cerebral artery: Unremarkable. No occlusion or significant stenosis. No aneurysm. Left internal carotid artery: Unremarkable. Intracranial segment is patent with no significant stenosis. No aneurysm. Left middle cerebral artery: Unremarkable. No occlusion or significant stenosis. No aneurysm. Left anterior cerebral artery: Unremarkable. No occlusion or significant stenosis. No aneurysm. POSTERIOR CIRCULATION: Right vertebral artery: Unremarkable. No occlusion or significant stenosis. No aneurysm. Left vertebral artery: Unremarkable. No occlusion or significant stenosis. No aneurysm. Basilar artery: Unremarkable. No occlusion or significant stenosis. No aneurysm. Right posterior cerebral artery: Unremarkable. No occlusion or significant stenosis. No aneurysm. Left posterior cerebral artery: Unremarkable. No occlusion or significant stenosis. No aneurysm. Brain: No definite mass, mass effect, or midline shift. Cerebral ventricles: No ventriculomegaly. Bones/joints: Unremarkable. No acute fracture. Soft tissues: Unremarkable. PROCEDURE INFORMATION: Exam: CT Angiography Neck With Contrast Exam date and time: 02/11/2022 8:34 PM Age: 76 years old Clinical indication: Patient HX: Weakness in lower extremities, dizziness, extreme HENSLEY; Additional info: Vertigo TECHNIQUE: Imaging protocol: Computed tomography angiography of the neck with contrast. 3D rendering (Not supervised by radiologist): MIP and/or 3D reconstructed images were created by the technologist. Radiation optimization: All CT scans at this facility use at least one of these dose optimization techniques: automated exposure control; mA and/or kV adjustment per patient size (includes targeted exams where dose is matched to clinical indication); or iterative reconstruction. Contrast material: OMNIPAQUE 350; Contrast volume: 55 ml; Contrast route: INTRAVENOUS (IV); COMPARISON: 1. CT head wo con* [id number] 02/11/2022 7:[address] neck w con* [id number] 09/12/2019 7:31 AM RADIATION DOSE METRICS: Total DLP (mGy-cm): 2275.47 FINDINGS: Right common carotid artery: No stenosis. No dissection or occlusion. Right internal carotid artery: There is mild atherosclerotic calcification of the right carotid bifurcation without stenosis as measured according to the NASCET criteria. Right external carotid artery: No occlusion or stenosis of the origin. Left common carotid artery: No stenosis. No dissection or occlusion. Left internal carotid artery: There is mild atherosclerotic plaque in the left carotid bifurcation without significant stenosis according to the NASCET criteria. Left external carotid artery: No occlusion or stenosis of the origin. Right vertebral artery: No stenosis. No dissection or occlusion. Left vertebral artery: No stenosis. No dissection or occlusion. Soft tissues: Normal. No significant soft tissue swelling. Bones/joints: No acute fracture. CT/CT angio headneck* [id number] IMPRESSION: No large vessel stenosis or occlusion. IMPRESSION: There is no significant stenosis or occlusion in the carotid or vertebral arteries in the neck. REFERENCES: NASCET CRITERIA. The degree of internal carotid artery stenosis is based on NASCET criteria. Normal is no stenosis. Mild is less than 50% stenosis. Moderate is 50-69% stenosis. Severe is 70% to 99% stenosis. Total occlusion is no detectable patent lumen.
[2022-02-11] MEDS: ketorolac 30 mg/mL INJ 15 MG IVP (20:29)
[2022-02-11] MEDS: sodium chloride 0.9% 1,000 ML 999 ML IV (20:30)
== END 2022-02-11 21:45 | disposition home or self-care (01) ==
PROVIDERS: Emergency Provider Emergency Medicine; PCP Family Medicine
DX: R42 Dizziness and giddiness (principal); I10 Essential (primary) hypertension
CPT/HCPCS: 70450; 70496; 70498; 71045; 80053; 85025; 85610; 96361; 96374; 99284; J1885; J7030; J8597; Q9967

== ENCOUNTER → 2022-10-22 12:22 | Outpatient (BNVA) | payer OTHER, SELFPAY | PROVIDERS: PCP Family Medicine; Visit Provider Internal Medicine | DX: I10 Essential (primary) hypertension (principal); R07.9 Chest pain, unspecified | CPT/HCPCS: 93005; 93225; 99204 ==

== ENCOUNTER 2022-12-01 07:48 | Outpatient (CLI) | payer OTHER, SELFPAY ==
--- NOTE | 2022-12-01 08:45 | USCV_ITS ---
Santos Delaney Age: 76 Gender: M : 1945 Exam Date: 12/01/2022 08:27 Ordering Phys: Jared Rae M.D ([email or web address]) Technologist: PHILIP [place]am Location[place] [facility] [place] Indication: SHORTNESS OF BREATH BP: 140 / 70 HR: 60 Rhythm: Sinus Technical Quality: Adequate MEASUREMENTS (Male / Female) Normal Values 2D ECHO LVOT Diameter 2.0 cm LV Ejection Fraction MOD 2C 57.8 % LV Ejection Fraction 2C AL 59.4 % LA Diameter 2.8 cm LA Width 3.2 cm LA Height 3.7 cm RA Width 2.9 cm RA Height 4.3 cm Aorta at Sinotubular Diameter 2.4 cm IVC Diameter 1.8 cm M-MODE Aortic Annulus Diameter 3.4 cm LA Ao Ratio MM 0.8 MV E Point Septal Separation 0.3 cm DOPPLER AV Peak Velocity 113.0 cm/s LVOT Peak Velocity 113.0 cm/s AV Area Cont Eq vti 3.1 cm squared AV Area Cont Eq pk 3.2 cm squared MV Peak Velocity 104.0 cm/s MV Area PHT 4.2 cm squared Mitral E to A Ratio 0.9 MV E' Velocity 45.5 cm/s Mitral E to MV E' Ratio 11.1 Mitral E to LV E' Lateral Ratio 11.4 Mitral E to LV E' Septal Ratio 10.9 TR Peak Velocity 146.6 cm/s TR Peak Gradient 8.6 mmHg TR Mean Velocity 124.9 cm/s TR Mean Gradient 6.3 mmHg TR Velocity Time Integral 50.5 cm TV Peak E Velocity 35.0 cm/s Right Atrial Pressure 3.0 mmHg Pulmonary Artery Systolic Pressu 11.6 mmHg PV Peak Velocity 67.0 cm/s RV Acceleration Time 0.2 s RV Ejection Time 0.3 s RV AcT/ET 0.5 FINDINGS Left Ventricle Left ventricle is normal in size. LV systolic function is normal with EF of 55 to 60%. No regional wall motion abnormalities are seen. Grade 1 diastolic dysfunction Right Ventricle Normal in size and function Right Atrium Normal in size Left Atrium Normal in size Mitral Valve Structurally normal mitral valve. Trace mitral regurgitation. Aortic Valve Structurally normal aortic valve. No significant aortic stenosis. Mild aortic regurgitation. Tricuspid Valve Mild tricuspid regurgitation. Pulmonary artery systolic pressure is normal. Pulmonic Valve Not well-visualized. Pericardium Normal Aorta Normal in size IVC Appears to be normal. CONCLUSIONS LV systolic function is normal with EF 55 to 60%. Grade 1 diastolic dysfunction. Trace mitral regurgitation Mild aortic regurgitation. Mild tricuspid regurgitation. No comparison studies are available. Jared Rae MD (Electronically Signed) Final Date: 05 December 2022 20:04 S
== END 2022-12-01 07:49 | disposition home or self-care (01) ==
LOC: RAD 07:54
PROVIDERS: PCP Family Medicine; Visit Provider Internal Medicine
DX: I08.3 Combined rheumatic disorders of mitral, aortic and tricuspid valves (principal); R06.02 Shortness of breath
CPT/HCPCS: 36415; 93306; 96374; 99204

== ENCOUNTER 2022-12-09 07:47 | Outpatient (CLI) | payer OTHER, SELFPAY ==
--- NOTE | 2022-12-09 | ECG_ITS ---
[facility] Test Date: 2022-12-09 Pat Name: Santos Delaney Department: Room: Gender: Male Regional Operations Director: Tawanna Calloway : 1945 Requested By: Jared Rae Order Number: [id number] Noe MD: Omkar Moraes M.D. Interpretive Statements NAME OF STUDY: LEXISCAN SESTAMIBI STRESS TEST INDICATION: Chest Pain PROCEDURE: At the baseline, the EKG revealed sinus bradycardia with a normal ST Ts.. The baseline heart was 59 bpm with a blood pressue of 144/88 mm of Hg Lexiscan was infused over a period of 20 seconds. A total of 0.4 milligrams of Lexiscan was infused. The stress phase was continued for a total of 5 minutes. Heart rate at the end of the stress phase was 85 bpm with a blood pressure 127/81 mm of Hg. The EKG at the peak infusion revealed 6. Sestamibi was injected 20 seconds after the Lexiscan infusion. Heart rate at the end of the recovery phase was 79 bpm with a blood pressure of 129/79 mm of Hg. CONCLUSION: 1. No significant EKG changes with the LexiScan infusion 2. No LexiScan induced chest pain or cardiac arrhythmia 3. Normal blood pressure and heart rate response 4. Sestamibi/sestamibi perfusion scan pending; see separate report. Electronically Signed On 12-13-2022 23:25:02 CDT by Omkar Moraes M.D. [id number]
[2022-12-09 08:32] VITALS: BMI 28.7
--- NOTE | 2022-12-09 08:33 | NMCV_ITS ---
NM jaylin perf SPECT r/s* [id number] Santos Delaney Age: 76 Gender: M : 1945 Exam Date: 12/09/2022 08:33 Ordering Phys: Jared Rae M.D ([email or web address]) Technologist: RACHELL Tony Exam Location: [facility] Indications: CHEST PAIN STRESS TEST [facility] IMAGE PROTOCOL Rest/Stress 1 Lexiscan Day Radiopharmaceutical Dose (mCi) Administration Site Administered by Rest: Tc-99m 10.6 IV RACHELL Garza Sestamibi Stress:Tc-99m 32.2 IV RACHELL Garza Sestamibi Rest: 09-Dec-2022 60 Discovery 630 Stress: 09-Dec-2022 30 Discovery 630 0.4mg Lexiscan. Images obtained in supine and prone position. SPECT RESULTS Technical Quality: Excellent Raw Data Analysis: Normal Image Corrections: No attenuation or motion correction applied Summed Stress Score: 0 Summed Rest Score: 0 Summed Difference Score: 0 PERFUSION FINDINGS Uniform myocardial tracer uptake with no significant perfusion abnormalities FUNCTIONAL RESULTS (calculated via Gated SPECT) Stress Image LV EF (%): 82 Stress EDV (mL):72 TID: 0.98 Stress ESV (mL):13 FUNCTIONAL FINDINGS: Segmental wall motion analysis revealing no gross wall motion abnormalities IMPRESSIONS 1. Myocardial perfusion imaging revealing no significant perfusion normalities. 2. Normal LV ejection fraction of 82%. 3. LV wall motion analysis revealing no gross wall motion abnormalities. 4. Normal LV volume Low probability for coronary ischemia, based on the above findings Dr Omkar Moraes MD FAC (Electronically Signed) Final Date: 09 December 2022 13:02 S
[2022-12-09] MEDS: regadenoson 0.4 Mg/5 ml Syringe IVP (10:00)
[2022-12-09 10:20] VITALS: BP 129/79; PULSE 78
== END 2022-12-09 07:48 | disposition home or self-care (01) ==
LOC: CDL 07:49
PROVIDERS: PCP Family Medicine; Visit Provider Internal Medicine
DX: R07.9 Chest pain, unspecified (principal)
CPT/HCPCS: 78452; 93017; A9500; J2785

== ENCOUNTER → 2022-12-30 12:42 | Outpatient (BNVA) | payer OTHER, SELFPAY | PROVIDERS: PCP Family Medicine; Visit Provider Internal Medicine | DX: I10 Essential (primary) hypertension (principal); R07.9 Chest pain, unspecified | CPT/HCPCS: 99214 ==

== ENCOUNTER → 2023-09-21 10:29 | Outpatient (BNVA) | payer OTHER, SELFPAY | PROVIDERS: PCP Family Medicine; Referring Provider Family Medicine; Visit Provider Specialist | DX: R56.9 Unspecified convulsions (principal); R29.90 Unspecified symptoms and signs involving the nervous system; G47.33 Obstructive sleep apnea (adult) (pediatric); G47.10 Hypersomnia, unspecified | CPT/HCPCS: 99205 ==

== ENCOUNTER → 2023-12-29 12:11 | Outpatient (BNVA) | payer OTHER, SELFPAY | PROVIDERS: PCP Family Medicine; Visit Provider Internal Medicine | DX: I10 Essential (primary) hypertension (principal); R07.9 Chest pain, unspecified | CPT/HCPCS: 99214 ==

== ENCOUNTER 2024-01-03 08:54 | Outpatient (CLI) | payer OTHER, SELFPAY ==
--- NOTE | 2024-01-03 09:30 | USCV_ITS ---
Santos Delaney Age: 78 Gender: M : 1945 Exam Date: 01/03/2024 09:11 Ordering Phys: Jared Rae M.D ([email or web address]) Technologist: GABRIELE Exam Location: [facility] – [place] Indication: CP, SOB BP: 112 / 74 HR: 159 Rhythm: Sinus Technical Quality: Good MEASUREMENTS (Male / Female) Normal Values 2D ECHO LV Diastolic Diameter PLAX 3.6 cm 4.2 - 5.9 / 3.9 - 5.3 cm IVS Diastolic Thickness 1.0 cm 0.6 - 1.0 / 0.6 - 0.9 cm IVS Systolic Thickness 1.4 cm LVPW Diastolic Thickness 1.0 cm 0.6 - 1.0 / 0.6 - 0.9 cm LVPW Systolic Thickness 1.8 cm LV Ejection Fraction 2D Teich 69.6 % LV Ejection Fraction MOD 2C 32.5 % LV Ejection Fraction 2C AL 32.5 % RA Systolic Volume 4C AL 8.3 ml RA Systolic Volume 4C MOD 8.2 ml IVC Diameter 2.1 cm M-MODE LA Ao Ratio MM 1.0 AV Cusp Separation MM 1.7 cm DOPPLER AV Peak Velocity 113.0 cm/s LVOT Peak Velocity 118.0 cm/s MV Peak Velocity 91.0 cm/s MV Area PHT 3.7 cm squared Mitral E to A Ratio 0.9 TV Peak Velocity 140.3 cm/s TR Peak Velocity 161.5 cm/s TR Peak Gradient 10.4 mmHg TR Mean Velocity 107.0 cm/s TR Mean Gradient 4.7 mmHg TR Velocity Time Integral 36.8 cm Right Atrial Pressure 3.0 mmHg Pulmonary Artery Systolic Pressu 13.4 mmHg PV Peak Velocity 69.8 cm/s RV Ejection Time 0.3 s FINDINGS Left Ventricle Left ventricle is normal. LV systolic function is normal with EF of 55 to 60%. No regional wall motion abnormalities are seen. Grade 1 disatolic dysfunction Right Ventricle Normal in size and function Right Atrium Normal in size Left Atrium Normal in size Mitral Valve Structurally normal mitral valve. Mild mitral regurgitation. Aortic Valve Structurally normal aortic valve. Mild aortic regurgitation. No significant stenosis. Tricuspid Valve Trace tricuspid regurgitation. Insufficient TR jet to calculate RVSP Pulmonic Valve Mild pulmonic regurgitation Pericardium Normal Aorta Normal in size IVC Appears to be normal CONCLUSIONS LV systolic function is normal with EF of 55-60% Grade 1 diastolic dysfunction Mild mitral regurgitation Mild aortic regurgitation Trace tricuspid regurgitation Mild pulmonic regurgitation Compared to prior echocardiogram from 2022, no significant changes are seen Jared Rae MD (Electronically Signed) Final Date: 07 January 2024 10:25 S
== END 2024-01-03 08:55 | disposition home or self-care (01) ==
LOC: RAD 08:54
PROVIDERS: PCP Family Medicine; Visit Provider Internal Medicine
DX: I08.0 Rheumatic disorders of both mitral and aortic valves (principal); R07.9 Chest pain, unspecified; R06.02 Shortness of breath
CPT/HCPCS: 93306

== ENCOUNTER → 2024-01-07 10:58 | Outpatient (BNVA) | payer OTHER, SELFPAY | PROVIDERS: PCP Family Medicine; Visit Provider Specialist | DX: R56.9 Unspecified convulsions (principal) | CPT/HCPCS: 95816 ==

== ENCOUNTER 2024-01-10 20:00 | Outpatient (CLI) | payer OTHER, SELFPAY | END 2024-01-10 20:01 | disposition home or self-care (01) | LOC: SLEEP 01-11 05:47 | PROVIDERS: PCP Family Medicine; Visit Provider Specialist | DX: G47.33 Obstructive sleep apnea (adult) (pediatric) (principal) | CPT/HCPCS: 95810 ==

== ENCOUNTER → 2024-01-25 12:12 | Outpatient (BNVA) | payer OTHER, SELFPAY | PROVIDERS: PCP Family Medicine; Visit Provider Specialist | DX: R56.9 Unspecified convulsions (principal); R29.90 Unspecified symptoms and signs involving the nervous system; G47.33 Obstructive sleep apnea (adult) (pediatric); G47.10 Hypersomnia, unspecified | CPT/HCPCS: 99214 ==

== ENCOUNTER → 2024-07-25 11:31 | Outpatient (BNVA) | payer OTHER, SELFPAY | PROVIDERS: PCP Family Medicine; Visit Provider Specialist | DX: R56.9 Unspecified convulsions (principal); R29.90 Unspecified symptoms and signs involving the nervous system; G47.33 Obstructive sleep apnea (adult) (pediatric); G47.10 Hypersomnia, unspecified | CPT/HCPCS: 99213 ==

== ENCOUNTER 2024-11-01 10:28 | Emergency (ER) | payer OTHER, SELFPAY ==
--- NOTE | 2024-11-01 10:31 | XR_ITS ---
WS: [id number] Exam: XR chest 1V portable [id number] Date/Time of Exam: 11/01/2024 10:31 AM Reason For Exam: cp Comparison 02/11/2022. Lungs are fully inflated and clear. Heart size top limits normal. No pleural effusions. The mediastin um is normal in contour. Unremarkable bony structures. XR/XR chest 1V portable [id number] IMPRESSION: 1. No acute cardiopulmonary finding.
--- NOTE | 2024-11-01 10:31 | ECG_ITS ---
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 Measurements Intervals [place] Rate: 80 P: 53 [place]: 198 QRS: 67 QRSD: 86 T: 55 QT: 371 QTc: 428 Interpretive Statements SINUS RHYTHM Compared to ECG 02/10/2022 13:32:51 No significant changes Electronically Signed On 11-02-2024 11:15:52 MOTOR VEHICLE INSPECTOR by Jared Rae M.D. [id number]
[2024-11-01 10:32] VITALS: BP 182/99; PULSE 82; RESP 16; TEMP 36.9; O2SAT 94; BMI 30.1
--- NOTE | 2024-11-01 10:38 | CT_ITS ---
WS: [id number] CT HEAD TECHNIQUE: Noncontrast CT of the head obtained from the skullbase to the vertex. CLINICAL INFORMATION: albrecht COMPARISON: 02/11/2022 DLP: 1100.[address] scans at [facility] use at least one of these dose optimization techniques: automated e xposure control; mA and/or kV adjustment per patient size (includes targeted exams where dose is matc hed to clinical indication); or iterative reconstruction. FINDINGS: No evidence of intracranial hemorrhage or mass effect. Ventricular system and basal cisterns are oakley nt. Moderate small vessel changes with moderate parenchymal volume loss. No evidence of mass or mass effect. Paranasal sinuses and mastoid air cells are well aerated. .Normal visualized soft tissues. CT/CT head wo con* [id number] IMPRESSION: 1. No evidence of intracranial hemorrhage or mass effect. 2. Moderate small vessel changes with moderate parenchymal volume loss. 3. Vascular calcification. 4. No acute intracranial findings. Notified Rogelio Tillman MD at 11/01/2024 11:46 AM.
--- NOTE | 2024-11-01 10:42 | ED_ITS ---
HPI - Chest Pain 2 General: Chief Complaint: Chest Pain Stated Complaint: chest pain, weakness on L side Time Seen by Provider: 11/01/24 10:31 Source: patient Mode of arrival: ambulatory Limitations: no limitations History of Present Illness: 78-year-old male states that over the week he has been having some dizziness he had some intermittent chest pains he states that today roughly 2 hours ago he did have an episode with sharp chest pain had some neck pain and felt weak all over. He states his chest pain is since resolved he said that he still feels just malaise is no focal deficits number any slurred speech or blurred vision. Associated symptoms: Deny abdominal pain, dyspnea, fever(s), nausea or vomiting Related Data Home Medications Medication Instructions Recorded Confirmed dicyclomine 20 mg tablet 20 mg PO BID 10/24/19 11/01/24 donepezil 10 mg tablet 10 mg PO BEDTIME 10/24/19 11/01/24 famotidine 20 mg tablet 20 mg PO BID 10/24/19 11/01/24 polyethylene glycol 3350 17 17 gm PO BEDTIME 10/24/19 11/01/24 gram/dose oral powder simvastatin 80 mg tablet 40 mg PO BEDTIME 10/24/19 11/01/24 omega-3 fatty acids 1,000 mg 2,000 mg PO BID 02/10/22 11/01/24 capsule aspirin 81 mg tablet,delayed 81 mg PO DAILY 09/21/23 11/01/24 release (Adult Aspirin Regimen) enalapril maleate 5 mg tablet 5 mg PO BID 09/21/23 11/01/24 naproxen sodium 220 mg capsule 220 mg PO BID PRN Pain 12/29/23 11/01/24 (Aleve) ascorbic acid (vitamin C) 500 mg 250 mg PO DAILY 11/01/24 11/01/24 tablet (Vitamin C) cholecalciferol (vitamin D3) 25 25 mcg PO DAILY 11/01/24 11/01/24 mcg (1,000 unit) tablet (Vitamin D3) cyanocobalamin (vitamin B-12) 100 100 mcg PO DAILY 11/01/24 11/01/24 mcg tablet (Vitamin B-12) ketoconazole 2 % topical cream 1 applic topical BID 11/01/24 11/01/24 [id number] 1 tab PO DAILY 11/01/24 11/01/24 tablet (Multivitamin 50 Plus tablet) Previous Rx's Medication Instructions Recorded gabapentin 100 mg capsule 200 mg (2 x 100 mg) PO TID #180 07/25/24 caps Allergies Allergy/AdvReac Type Severity Reaction Status Date / Time diphenhydramine Allergy Unknown Unknown Verified 07/25/24 11:39 [From Benadryl] omeprazole [From Prilosec] Allergy Unknown Unknown Verified 07/25/24 11:39 Review of Systems 2 Const: Denies: fever(s), chills, body aches or change in appetite Eyes: Denies: blurry vision or eye discomfort ENMT: Denies: throat pain or dental pain Card: Reports: chest pain Resp: Denies: dyspnea GI: Denies: abdominal pain, nausea, vomiting or diarrhea Musc: Denies: neck pain or back pain Skin/Breast: Denies: rash Neuro: Reports: weakness in extremities; Denies: headache(s) PFSH ED 2 PFSH: Medical History Abdominal pain Diverticulosis Constipation Hypertension GERD (gastroesophageal reflux disease) Hyperlipidemia IBS (irritable bowel syndrome) Major depressive disorder Hiatal hernia Dysphagia Left inguinal hernia Surgical History History of left inguinal hernia repair (~10/2019) History of colonoscopy Family History Father Cancer lung Family/Other Diabetes Hypertension sister Denies family history of Anesthesia complication Bleeding disorder Social History Smoking and tobacco/nicotine status: never used tobacco/nicotine Second hand smoke exposure: No Alcohol intake: never Substance/Drug Use: never Adopted: No Caregiver/support person: Yes Lives independently: Yes Household members: spouse Housing: House Marital status: Highest education level completed: High School Graduate service: Yes (12 years with [employer]) branch: [employer] Current occupational status: retired Current occupational exposures/hazards: No Pets and animals: No Leisure activites: exercise Sexually active: No Do you think of yourself as: Straight/Heterosexual Current gender identity: Male Tessa/Restoration: Baptism Special tessa needs: No Agree to transfusion: No Physical Exam 2 Const: COMMON NORMALS: patient oriented x3 HENMT: COMMON NORMALS: normocephalic and atraumatic HEAD & SCALP: n ormocephalic and atraumatic Eye: COMMON NORMALS: Equal, round and reactive pupils present and EOMs intact bilaterally PUPIL: Yes Equal, round and reactive pupils present Neck/C-Spine: COMMON NORMALS: full ROM and supple Chest: COMMONS NORMALS: normal inspection of the chest Resp: COMMON NORMALS: normal respiratory effort, No retractions, No use of accessory muscles and clear to auscultation bilaterally AUSCULTATION: clear to auscultation bilaterally Cardio: COMMON NORMALS: regular rate, regular rhythm and No murmurs present (Cardio) RATE: regular rate RHYTHM: regular rhythm GI: COMMON NORMALS: Normal to inspection, nondistended, normoactive bowel sounds present, Soft to palpation, non-tender and no masses PALPATION: Yes Soft to palpation Extremity: COMMON NORMALS: normal to inspection and full ROM Neuro: COMMON NORMALS: patient oriented x3, moves all extremities and no focal motor deficits CRANIAL NERVES: Yes CN normal except as noted MOTOR EXAM: 5 /5 motor strength present throughout Psych: COMMON NORMALS: mental status grossly normal, Normal thought process present and cooperative THOUGHT PROCESS: Normal thought process present Skin: COMMON NORMALS: no rashes or lesions noted and no wounds GENERAL SKIN EXAM: no rashes or lesions noted Course 2 Vital Signs: Vital signs: Vital Signs Temperature 98.5 F 11/01/24 10:32 Pulse Rate 75 11/01/24 13:34 Respiratory Rate 16 11/01/24 10:32 Blood Pressure 138/86 11/01/24 13:34 Pulse Oximetry 95 11/01/24 13:34 Oxygen Delivery Me thod Room Air 11/01/24 10:32 MDM - Chest Pain Medical Decision Making Patient presents here chest pain he is also had some dizziness was going on for a week his symptoms have resolved here imaging blood works normal is no signs of ACS no signs of pulmonary embolism he has no signs of a stroke he stable for discharge follow-up with PCP return if worsening he understands agrees plan Medical Records I reviewed the patient's medical records. Lab Data I reviewed the patient's lab results. 11/01/24 10:41 11/01/24 10:41 Radiology Impressions Chest X-Ray 11/01/24 10:31 IMPRESSION: 1. No acute cardiopulmonary finding. Head CT 11/01/24 10:38 IMPRESSION: 1. No evidence of intracranial hemorrhage or mass effect. 2. Moderate small vessel changes with moderate parenchymal volume loss. 3. Vascular calcification. 4. No acute intracranial findings. Notified Rogelio Tillman MD at 11/01/2024 11:46 AM. Laboratory Results WBC 7.14 10^3/uL (3.29-11.43) 11/01/24 10:41 RBC 5.57 10^6/uL (3.85-5.65) 11/01/24 10:41 Hgb 16.50 g/dL (11.27-16.99) 11/01/24 10:41 Hct 49.8 % (37-53) 11/01/24 10:41 MCV 89.4 fl (82-101) 11/01/24 10:41 MCH 29.6 pg (27-33) 11/01/24 10:41 MCHC 33.1 g/dL (30-55) 11/01/24 10:41 RDW 12.6 % (12.1-15.1) 11/01/24 10:41 Plt Count 159 10^3/cmm (157-399) 11/01/24 10:41 MPV 10.4 fL (7.4-10.4) 11/01/24 10:41 Neut % (Auto) 47.4 % 11/01/24 10:41 Lymph % (Auto) 38.0 % 11/01/24 10:41 [place] % (Auto) 10.1 % 11/01/24 10:41 Eos % (Auto) 3.4 % 11/01/24 10:41 Baso % (Auto) 0.8 % 11/01/24 10:41 Neut # (Auto) 3.39 10^3/uL (1.8-7.7) 11/01/24 10:41 Lymph # (Auto) 2.7 10^3/uL (0.8-4.8) 11/01/24 10:41 [place] # (Auto) 0.7 10^3/uL (0.2-0.9) 11/01/24 10:41 Eos # (Auto) 0.2 10^3/uL (0.0-0.8) 11/01/24 10:41 Baso # (Auto) 0.1 10^3/uL (0.0-0.1) 11/01/24 10:41 Nucleated RBC % (auto) 0 % 11/01/24 10:41 Nucleated RBCs # 0.0 /100WBC 11/01/24 10:41 PT 13.80 SECONDS (12.1-14.9) 11/01/24 10:41 INR 0.99 (0.8-1.2) 11/01/24 10:41 Sodium 137 mmol/L (136-145) 11/01/24 10:41 Potassium 4.2 mmol/L (3.5-5.1) 11/01/24 10:41 Chloride 100 mmol/L (98-107) 11/01/24 10:41 Carbon Dioxide 26 mmol/L (22-29) 11/01/24 10:41 Anion Gap 15.2 (5-19) 11/01/24 10:41 BUN 13 mg/dL (8-23) 11/01/24 10:41 Creatinine 1.0 mg/dL (0.7-1.2) 11/01/24 10:41 GFR Calculation Not Reportable 11/01/24 10:41 Glucose 110 mg/dL (65-115) 11/01/24 10:41 Calculated Osmolality 285 mOsm/kg (285-295) 11/01/24 10:41 Calcium 9.0 mg/dL (8.5-10.5) 11/01/24 10:41 Total Bilirubin 0.4 mg/dL (0.15-1.2) 11/01/24 10:41 AST 41 U/L (0-40) H 11/01/24 10:41 ALT 43 U/L (0-41) H 11/01/24 10:41 Alkaline Phosphatase 44 U/L (40-130) 11/01/24 10:41 Troponin T Baseline < 6 ng/L (0-15) 11/01/24 10:41 Troponin T 120 Minute 6.00 ng/L (0-15) 11/01/24 12:47 Delta Troponin T 0.13315 ABS# (0-10) 11/01/24 12:47 Total Protein 7.2 g/dL (6.6-8.7) 11/01/24 10:41 Albumin 4.6 g/dL (3.5-5.2) 11/01/24 10:41 Globulin 2.6 g/dL (1.3-4.6) 11/01/24 10:41 Lipase 41 U/L (13-60) 11/01/24 10:41 All radiology interpretation(s) finalized by discharge EKG Data EKG 1: I personally reviewed and interpreted this EKG as follows: EKG interpretation date: 11/01/24 EKG interpretation time: 10:34 Interpretation: nsr hr [address] or t wave abnormalities qrs 86 qtc 406 EKG 2: I personally reviewed and interpreted this EKG as follows: EKG interpretation date: 11/01/24 EKG interpretation time: 12:14 Interpretation: nsr hr [address] elevation qrs 87 qtc 407 Discharge Plan Discharge Patient Disposition: Home Clinical Impression: Chest pain, Dizziness Condition: Stable Prescriptions: No Action donepezil 10 mg tablet 10 mg PO BEDTIME famotidine 20 mg tablet 20 mg PO BID polyethylene glycol 3350 17 gram/dose powder 17 gm PO BEDTIME simvastatin 80 mg tablet 40 mg PO BEDTIME dicyclomine 20 mg tablet 20 mg PO BID naproxen sodium [Aleve] 220 mg capsule 220 mg PO BID PRN (Reason: Pain) aspirin [Adult Aspirin Regimen] 81 mg tablet,delayed release (DR/EC) 81 mg PO DAILY enalapril maleate 5 mg tablet 5 mg PO BID gabapentin 100 mg capsule 200 mg PO TID Qty: 180 11RF omega-3 fatty acids [Fish Oil Concentrate] 1,000 mg Capsule 2,000 mg PO BID cyanocobalamin (vitamin B-12) [Vitamin B-12] 100 mcg Tablet 100 mcg PO DAILY ascorbic acid (vitamin C) [Vitamin C] 500 mg Tablet 250 mg PO DAILY ketoconazole 2 % Cream 1 applic TOPICAL BID Multivitamin 50 Plus Tablet 1 tab PO DAILY cholecalciferol (vitamin D3) [Vitamin D3] 25 mcg (1,000 unit) Tablet 25 mcg PO DAILY Discharge Orders: Discharge ED (Routine); Ordered 11/01/24 Ordered By: Rogelio Tillman Referrals: Grace Lam MD [Primary Care Provider] - 4-7 days Discharge Diet: Advance as tolerated Discharge Activity: Resume usual activity Patient Instructions: Chest Pain (ED), Dizziness (ED) Coding Level of Care Code ED Biofuels Engineering Manager for Neeta Fortunato NIH stroke score NIHSS Level Of Consciousness - 1a: 0 Level Of Consciousness Questions - 1b: Both Correct Level Of Consciousness Commands - 1c: Both Correct Best Gaze - 2: Normal Visual Hinkle - 3: No Visual Loss Facial Palsy - 4: Normal Motor Arm Right - 5: No Drift Motor Arm Left - 5: No Drift Motor Leg Right - 6: No Drift Motor Leg Left - 6: No Drift Limb Ataxia - 7: Absent Sensory - 8: Normal Best Language - 9: No Aphasia Dysarthia - 10: Normal Extinction And Inattention - 11: 0 Score Total Score: 0
[2024-11-01 10:51] LABS: Basophils # 0.1 10^3/uL (0.0-0.1); Basophils % 0.8 %; Eosinophils # 0.2 10^3/uL (0.0-0.8); Eosinophils % 3.4 %; Hematocrit 49.8 % (37-53); Lymphocytes # 2.7 10^3/uL (0.8-4.8); Mean Corpuscular HGB Conc 33.1 g/dL (30-55); Mean Corpuscular Hemoglobin 29.6 pg (27-33); Mean Corpuscular Volume 89.4 fl (82-101); Mean Platelet Volume 10.4 fL (7.4-10.4); Monocytes # 0.7 10^3/uL (0.2-0.9); Monocytes % 10.1 %; Neutrophils # 3.39 10^3/uL (1.8-7.7); Neutrophils % 47.4 %; Nucleated Red Blood Cells % 0 %; Platelet Count 159 10^3/cmm (157-399); Red Blood Count 5.57 10^6/uL (3.85-5.65); Red Cell Distribution Width 12.6 % (12.1-15.1); White Blood Count 7.14 10^3/uL (3.29-11.43)
[2024-11-01 10:53] VITALS: BP 182/99; PULSE 78; O2SAT 94
[2024-11-01 11:01] LABS: INR 0.99 (0.8-1.2)
--- NOTE | 2024-11-01 11:04 | PC.PHAR ---
[facility] is [facility] at 10:45am. Pt states his med list is current but we did go over them. Pt took his am meds.
[2024-11-01 11:08] LABS: Alanine Aminotransferase 43 U/L (0-41); Albumin Level 4.6 g/dL (3.5-5.2); Alkaline Phosphatase 44 U/L (40-130); Aspartate Amino Transferase 41 U/L (0-40); Blood Urea Nitrogen 13 mg/dL (8-23); Carbon Dioxide 26 mmol/L (22-29); Chloride 100 mmol/L (98-107); Creatinine Clr Calc Pharmacy 71.6639; Globulin 2.6 g/dL (1.3-4.6); Glucose 110 mg/dL (65-115); Lipase 41 U/L (13-60); Osmolality Calculated 285 mOsm/kg (285-295); Sodium 137 mmol/L (136-145); Total Bilirubin 0.4 mg/dL (0.15-1.2); Total Protein 7.2 g/dL (6.6-8.7)
[2024-11-01 11:09] LABS: Anion Gap 15.2 (5-19); Potassium 4.2 mmol/L (3.5-5.1); Troponin(5th) Baseline < 6 ng/L (0-15)
[2024-11-01 11:46] VITALS: BP 134/83; PULSE 77; O2SAT 92
--- NOTE | 2024-11-01 12:31 | ECG_ITS ---
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 Measurements Intervals [place] Rate: 72 P: 59 [place]: 192 QRS: 69 QRSD: 87 T: 56 QT: 384 QTc: 420 Interpretive Statements SINUS RHYTHM Compared to ECG 11/01/2024 10:34:46 No significant changes Electronically Signed On 11-04-2024 13:42:54 CAD INTERN by Jared Rae M.D. [id number]
[2024-11-01 13:17] LABS: Troponin 5 2HR Delta 0.00001 ABS# (0-10)
[2024-11-01] MEDS: aspirin 81 mg Chew Tablet 324 MG PO (13:33)
[2024-11-01 13:34] VITALS: BP 138/86; PULSE 75; O2SAT 95
[2024-11-01] MEDS: meclizine 25 mg tablet 50 MG PO (13:34)
[2024-11-01 14:20] VITALS: BP 138/86; PULSE 81; O2SAT 96
== END 2024-11-01 14:22 | disposition home or self-care (01) ==
PROVIDERS: Emergency Provider Emergency Medicine; PCP Family Medicine
DX: R07.9 Chest pain, unspecified (principal); R42 Dizziness and giddiness; I10 Essential (primary) hypertension
CPT/HCPCS: 70450; 71045; 80053; 83690; 84484; 85025; 85610; 93005; 99285; J8597

== ENCOUNTER 2024-11-15 08:09 | Outpatient (CLI) | payer OTHER, SELFPAY ==
--- NOTE | 2024-11-15 08:14 | MR_ITS ---
WS: [id number] MRI BRAIN WITH AND WITHOUT CONTRAST HISTORY: NEW ONSET SYNCOPAL EPISODES WITH VERTIGO COMPARISON: 11/20/2022, CT head 11/01/2024 TECHNIQUE: Multiplanar imaging performed through the brain with MultiHance 20 ml's IV. No acute infarcts are seen. Velásquez-white matter differentiation is well preserved. Mild cerebral and cerebellar atrophy. Focal areas of increased T2 and FLAIR signal surrounding the ventricles and a few scattered subcortical white matter foci. No prior infarct. No susceptibility artifacts or prior lacunar infarcts. Ventricles and extra-axial spaces are normal. Clivus and pituitary gland are normal. Visualized posterior fossa and brainstem are also normal. Postcontrast images are negative for masses or vascular malformations. Distal vertebral arteries and the basilar artery are patent. Normal enhancement with no masses or vascular malformations identified. No abnormality at the cerebellopontine angles. Dural venous sinuses are normal. Paranasal sinuses: Well aerated with no significant disease. Mastoid air cells: Normal. Calvarium and scalp: Normal. MR/MR head wo/w con [id number] IMPRESSION: 1. No acute infarct or hemorrhage. 2. Mild cerebral atrophy with no prior infarct. 3. No enhancing masses. No vascular malformation. 4. Mild small vessel ischemic type changes in the subcortical and periventricu lar white matter. Similar to the study from 11/20/2022.
[2024-11-15] MEDS: gadobenate dimeglumine 20 mL vial IV (08:59)
== END 2024-11-15 08:10 | disposition home or self-care (01) ==
PROVIDERS: PCP Family Medicine; Visit Provider Family Medicine
DX: Z01.89 Encounter for other specified special examinations (principal); G31.89 Other specified degenerative diseases of nervous system; R93.0 Abnormal findings on diagnostic imaging of skull and head, not elsewhere classified
CPT/HCPCS: 70553

== ENCOUNTER → 2024-11-28 12:59 | Outpatient (BNVA) | payer OTHER, SELFPAY | PROVIDERS: PCP Family Medicine; Visit Provider Internal Medicine | DX: R55 Syncope and collapse (principal); I10 Essential (primary) hypertension; R07.9 Chest pain, unspecified | CPT/HCPCS: 99214 ==

== ENCOUNTER 2024-11-30 07:27 | Outpatient (CLI) | payer OTHER, SELFPAY ==
--- NOTE | 2024-11-30 07:30 | USCV_ITS ---
Santos Delaney Age: 78 Gender: M : 1945 Exam Date: 11/30/2024 07:41 Ordering Phys: Grace Lam MD Technologist: [place] [facility] [place]: tia Risk Factors: Previous Vascular Surgery: Right Brachial BP: / Left Brachial BP: / Right Left Velocity (cm/s) Spectral Plaque Velocity (cm/s) Spectral Plaque Syst/Diast Broadening Syst/Diast Broadening 104.80/18.00 Prox CCA 97.50 / 21.40 95.70/ 15.40 Mid CCA 87.60 / 18.00 86.70/ 16.70 Distal CCA 76.00 / 16.40 69.00/ 15.60 Prox ICA 59.00 / 13.00 58.70/ 15.10 Mid ICA 78.50 / 21.20 60.50/ 16.10 Distal ICA 78.50 / 22.80 126.10 ECA 146.80 0.80 ICA/CCA 1.00 Antegrade Vertebral Antegrade 32.30/ 6.40 cm/s 32.00/ 8.00 cm/s Tri Subclavian Tri 64.80 65.00 CONCLUSIONS Right ICA stenosis <50%. Mild atheromatous plaque right carotid bulb/ICA. Left ICA stenosis <50%. Mild atheromatous plaque left carotid bulb/ICA. Normal antegrade Doppler flow noted in the right vertebral artery. Normal antegrade Doppler flow noted in the left vertebral artery. Froilan Suggs MD (Electronically Signed) Final Date: 30 November 2024 08:59 S
== END 2024-11-30 07:28 | disposition home or self-care (01) ==
PROVIDERS: PCP Family Medicine; Visit Provider Family Medicine
DX: R55 Syncope and collapse (principal); I65.23 Occlusion and stenosis of bilateral carotid arteries
CPT/HCPCS: 93880

== ENCOUNTER 2025-03-07 17:23 | Inpatient (IN) | payer OTHER, MEDICARE, SELFPAY ==
[2025-03-07] VITALS (12 sets, daily range): BP systolic 143–178; BP diastolic 91–99; PULSE 70–79; RESP 13–22; TEMP 36.4; O2SAT 93–98
--- NOTE | 2025-03-07 17:25 | XRR_ITS ---
PROCEDURE INFORMATION: Exam: XR Chest Exam date and time: 03/07/2025 5:45 PM Age: 79 years old Clinical indication: Other: Weakness TECHNIQUE: Imaging protocol: Radiologic exam of the chest. Views: 1 view. COMPARISON: CR XR chest 1V portable [id number] 11/01/2024 10:46 AM FINDINGS: Lungs: Unremarkable. No consolidation. Pleural spaces: Unremarkable. No pleural effusion. No pneumothorax. Heart/Mediastinum: Unremarkable. No cardiomegaly. Bones/joints: Unremarkable. XR/XR chest 1V portable [id number] IMPRESSION: No acute findings.
--- NOTE | 2025-03-07 17:26 | ECG_ITS ---
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
[2025-03-07 18:27] LABS: Basophils # 0.1 10^3/uL (0.0-0.1); Basophils % 0.9 %; Eosinophils # 0.2 10^3/uL (0.0-0.8); Eosinophils % 2.5 %; Hematocrit 48.8 % (37-53); Lymphocytes # 2.4 10^3/uL (0.8-4.8); Lymphocytes % 34.7 %; Mean Corpuscular HGB Conc 33.6 g/dL (30-55); Mean Corpuscular Hemoglobin 30.1 pg (27-33); Mean Corpuscular Volume 89.7 fl (82-101); Mean Platelet Volume 10.6 fL (7.4-10.4); Monocytes # 0.8 10^3/uL (0.2-0.9); Monocytes % 11.3 %; Neutrophils # 3.44 10^3/uL (1.8-7.7); Neutrophils % 50.3 %; Nucleated Red Blood Cells % 0 %; Platelet Count 160 10^3/cmm (157-399); Red Blood Count 5.44 10^6/uL (3.85-5.65); Red Cell Distribution Width 12.5 % (12.1-15.1); White Blood Count 6.83 10^3/uL (3.29-11.43)
[2025-03-07 19:04] LABS: Alanine Aminotransferase 41 U/L (0-41); Albumin Level 4.6 g/dL (3.5-5.2); Alkaline Phosphatase 42 U/L (40-130); Aspartate Amino Transferase 38 U/L (0-40); Blood Urea Nitrogen 15 mg/dL (8-23); Calcium 9.8 mg/dL (8.5-10.5); Carbon Dioxide 26 mmol/L (22-29); Chloride 103 mmol/L (98-107); Globulin 3.1 g/dL (1.3-4.6); Glucose 97 mg/dL (65-115); Osmolality Calculated 293 mOsm/kg (285-295); Sodium 141 mmol/L (136-145); Thyroid Stimulating Hormone 6.31 uIU/mL (0.27-4.20); Total Bilirubin 0.4 mg/dL (0.15-1.2); Total Protein 7.7 g/dL (6.6-8.7)
[2025-03-07 19:07] LABS: Anion Gap 16.2 (5-19); Potassium 4.2 mmol/L (3.5-5.1)
[2025-03-07 20:34] LABS: Bilirubin Urine Negative (Negative); Blood Urine Negative (Negative); Glucose Urine UA Negative (Normal); Ketones Urine Trace (Negative); Leukocyte Esterase Urine Negative (Negative); Nitrate Urine Negative (Negative); Protein Urine Negative (Negative); Specific Gravity, Urine 1.019 (1.005-1.030); Urine Appearance Clear (CLEAR); Urine Color Yellow (Yellow); pH Urine 6.5 (5-7)
[2025-03-07 20:39] LABS: Add Urine Microscopic? YES; Bacteria Urine None Seen /hpf; Hyaline Casts Urine 0-4 /lpf; RBC Urine 0-2 /hpf (0-2); Squamous Epithelial Cell Urine 0-5 /hpf (0-5); WBC Urine 0-5 /hpf (0-5)
--- NOTE | 2025-03-07 21:31 | CTR_ITS ---
PROCEDURE INFORMATION: Exam: CT Head Without Contrast Exam date and time: 03/07/2025 9:36 PM Age: 79 years old Clinical indication: Altered mental status/memory loss and weakness, extremity; Bilateral; Confusion spells since yesterday with memory loss and weakness; Additional info: Subacute stroke like symptoms TECHNIQUE: Imaging protocol: Computed tomography of the head without contrast. Radiation optimization: All CT scans at this facility use at least one of these dose optimization techniques: automated exposure control; mA and/or kV adjustment per patient size (includes targeted exams where dose is matched to clinical indication); or iterative reconstruction. COMPARISON: MR head wo/w con [id number] 11/15/2024 8:32 AM RADIATION DOSE METRICS: Total DLP (mGy-cm): 1113 FINDINGS: Brain: Evidence of chronic small vessel ischemia. No hemorrhage. No mass effect or herniation. Cerebral ventricles: Nondilated ventricles. Paranasal sinuses: Visualized sinuses are well aerated. Mastoid air cells: Visualized mastoid air cells are well aerated. Bones: No acute fracture. Soft tissues: Unremarkable. CT/CT head wo con* [id number] IMPRESSION: Senescent change. No acute intracranial abnormality.
--- NOTE | 2025-03-07 22:53 | CTR_ITS ---
PROCEDURE INFORMATION: Exam: CTA Head With Contrast, Arteriography Exam date and time: 03/07/2025 11:34 PM Age: 79 years old Clinical indication: Other: Confusion; Additional info: Confusion spells TECHNIQUE: Imaging protocol: Computed tomographic angiography of the head with contrast. Exam focused on the arteries. 3D rendering (Not supervised by radiologist): MIP and/or 3D reconstructed images were created by the technologist. Radiation optimization: All CT scans at this facility use at least one of these dose optimization techniques: automated exposure control; mA and/or kV adjustment per patient size (includes targeted exams where dose is matched to clinical indication); or iterative reconstruction. Contrast material: OMNI 350; Contrast volume: 100 ml; Contrast route: INTRAVENOUS (IV); COMPARISON: CT head wo con* [id number] 03/07/2025 9:36 PM RADIATION DOSE METRICS: Total DLP (mGy-cm): 657.75 FINDINGS: ANTERIOR CIRCULATION: Right internal carotid artery: Calcified atheroma of the right cavernous ICA but no significant stenosis. Right middle cerebral artery: No occlusion or significant stenosis. No aneurysm. Right anterior cerebral artery: No occlusion or significant stenosis. No aneurysm. Left internal carotid artery: Calcified atheroma of the left cavernous ICA with mild stenosis. Left middle cerebral artery: No occlusion or significant stenosis. No aneurysm. Left anterior cerebral artery: No occlusion or significant stenosis. No aneurysm. POSTERIOR CIRCULATION: Right vertebral artery: No occlusion or significant stenosis. No aneurysm. Left vertebral artery: No occlusion or significant stenosis. No aneurysm. Basilar artery: No occlusion or significant stenosis. No aneurysm. Right posterior cerebral artery: No occlusion or significant stenosis. No aneurysm. Left posterior cerebral artery: No occlusion or significant stenosis. No aneurysm. Brain: There are bilateral periventricular white matter and centrum semiovale hypodensities, consistent with chronic ischemic small vessel disease. Age related diffuse parenchymal volume loss. No recent infarct, intracranial bleed or mass effect. Cerebral ventricles: Ex vacuo dilatation of the ventricles. Orbital cavities: Post bilateral cataract surgery. Bones/joints: Unremarkable. No acute fracture. Soft tissues: Unremarkable. PROCEDURE INFORMATION: Exam: CTA Neck With Contrast Exam date and time: 03/07/2025 11:34 PM Age: 79 years old Clinical indication: Other: Confusion; Additional info: Confusion spells TECHNIQUE: Imaging protocol: Computed tomographic angiography of the neck with contrast. Exam focused on the cervical segments of the vasculature. 3D rendering (Not supervised by radiologist): MIP and/or 3D reconstructed images were created by the technologist. Radiation optimization: All CT scans at this facility use at least one of these dose optimization techniques: automated exposure control; mA and/or kV adjustment per patient size (includes targeted exams where dose is matched to clinical indication); or iterative reconstruction. Contrast material: OMNI 350; Contrast volume: 100 ml; Contrast route: INTRAVENOUS (IV); COMPARISON: CT head wo [facility]* [id number] 03/07/2025 9:36 PM RADIATION DOSE METRICS: Total DLP (mGy-cm): 667.75 FINDINGS: Right common carotid artery: Calcified atheroma of the right common carotid artery with no significant stenosis. Right internal carotid artery: No stenosis of the extracranial segment. No dissection or occlusion. Right external carotid artery: No occlusion or stenosis of the origin. Left common carotid artery: Calcified atheroma of the left common carotid artery with no significant stenosis. Left internal carotid artery: No stenosis of the extracranial segment. No dissection or occlusion. Left external carotid artery: No occlusion or stenosis of the origin. Right vertebral artery: Calcified atheroma of the V4 segment of the right vertebral artery with mild stenosis. Left vertebral artery: Calcified atheroma of the V4 segment of the left vertebral artery with mild stenosis. 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 Soft tissues: Normal. No significant soft tissue swelling. Bones/joints: The cervical spine demonstrates mild degenerative changes at multiple levels. Lungs: Atelectatic changes in the dependent portions both lungs. CT/CT angio headneck* [id number] IMPRESSION: 1. No large vessel occlusion. 2. No large territorial infarct or intracranial bleed. 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 REFERENCES: NASCET CRITERIA. The degree of stenosis in the cervical segment of the internal carotid artery is based on NASCET criteria. Normal is no stenosis. Mild is less than 50% stenosis. Moderate is 50-69% stenosis. Severe is 70% to 99% stenosis. Total occlusion is no detectable patent lumen.
[2025-03-07] MEDS: levETIRAcetam 2,000 MG/200 ML PREMIX 400 MG IV (23:21)
--- NOTE | 2025-03-07 23:22 | W.ED.AMS ---
HPI - Altered Mental Status General: Chief Complaint: Altered Mental Status Stated Complaint: weakness (5xdays) Time Seen by Provider: 03/07/25 21:27 History of Present Illness: Pt is a79 yr old male who presents after an episode five days ago while working on the roof, during which he became confused, unable to recall what he was doing, and had no memory of recent events. His spouse reports this was a sudden change, [facility], who [facility]. Since then, pt has had repeated bouts of roughly 10 minute episodes during which his short term memory becomes extremely effected. He has no weakness, garbled speech, or facial droop. No falls. Today, while in the waiting room, pt failed to recognize his spouse after returning from the restroom, but 10 minutes later memory was back to normal again. Pt describes episodes of dizziness, transient freezing sensations, and a whooshing sound in his ear, sometimes associated with feeling lightheaded. No history of diagnosed dementia or Alzheimer's, though memory loss has been mentioned previously. No recent trauma, garbled speech, or focal weakness. No reported fever, infection, or other acute symptoms. Pt has a remote history of head injury during service but no recent events. No evidence of infection or other systemic symptoms. Related Data Home Medications ?Medication ?Instructions ?Recorded ?Confirmed dicyclomine 20 mg tablet 20 mg PO BID 10/24/19 11/28/24 donepezil 10 mg tablet 10 mg PO BEDTIME 10/24/19 11/28/24 famotidine 20 mg tablet 20 mg PO BID 10/24/19 11/28/24 polyethylene glycol 3350 17 17 gm PO BEDTIME 10/24/19 11/28/24 gram/dose oral powder simvastatin 80 mg tablet 40 mg PO BEDTIME 10/24/19 11/28/24 omega-3 fatty acids 1,000 mg 2,000 mg PO BID 02/10/22 11/28/24 capsule aspirin 81 mg tablet,delayed 81 mg PO DAILY 09/21/23 11/28/24 release (Adult Aspirin Regimen) enalapril maleate 5 mg tablet 5 mg PO BID 09/21/23 11/28/24 naproxen sodium 220 mg capsule 220 mg PO BID PRN Pain 12/29/23 11/28/24 (Aleve) ascorbic acid (vitamin C) 500 mg 250 mg PO DAILY 11/01/24 11/28/24 tablet (Vitamin C) cholecalciferol (vitamin D3) 25 25 mcg PO DAILY 11/01/24 11/28/24 mcg (1,000 unit) tablet (Vitamin D3) cyanocobalamin (vitamin B-12) 100 100 mcg PO DAILY 11/01/24 11/28/24 mcg tablet (Vitamin B-12) ketoconazole 2 % topical cream 1 applic topical BID 11/01/24 11/28/24 [id number] 1 tab PO DAILY 11/01/24 11/28/24 tablet (Multivitamin 50 Plus tablet) Previous Rx's ?Medication ?Instructions ?Recorded gabapentin 100 mg capsule 200 mg (2 x 100 mg) PO TID #180 07/25/24 caps Allergies Allergy/AdvReac Type Severity Reaction Status Date / Time diphenhydramine (From Allergy Unknown Unknown Verified 03/07/25 17:44 Benadryl) omeprazole (From Prilosec) Allergy Unknown Unknown Verified 03/07/25 17:44 PFSH ED PFSH: Medical History Abdominal pain Diverticulosis Constipation Hypertension GERD (gastroesophageal reflux disease) Hyperlipidemia IBS (irritable bowel syndrome) Major depressive disorder Hiatal hernia Dysphagia Left inguinal hernia Surgical History History of left inguinal hernia repair (~10/2019) History of colonoscopy Family History Father Cancer lung Family/Other Diabetes Hypertension sister Denies family history of Anesthesia complication Bleeding disorder Social History Smoking and tobacco/nicotine status: never used tobacco/nicotine Second hand smoke exposure: No Alcohol intake: never Substance/Drug Use: never Adopted: No Caregiver/support person: Yes Lives independently: Yes Household members: spouse Housing: House Marital status: Highest education level completed: High School Graduate service: Yes (12 years with [employer]) branch: [employer] Current occupational status: retired Current occupational exposures/hazards: No Pets and animals: No Leisure activites: exercise Sexually active: No Do you think of yourself as: Straight/Heterosexual Current gender identity: Male Tessa/Mandaen: Yarsanism Special tessa needs: No Agree to transfusion: No Physical Exam Const: COMMON NORMALS: no acute distress, patient oriented x3 and alert HENMT: COMMON NORMALS: normocephalic and atraumatic HEAD & SCALP: normocephalic and atraumatic Eye: COMMON NORMALS: Equal, round and reactive pupils present, EOMs intact bilaterally and no scleral icterus PUPIL: Yes Equal, round and reactive pupils present Resp: COMMON NORMALS: normal respiratory effort and No retractions Cardio: COMMON NORMALS: regular rate, regular rhythm and No murmurs present (Cardio) RATE: regular rate RHYTHM: regular rhythm GI: COMMON NORMALS: Normal to inspection, nondistended, normoactive bowel sounds present, Soft to palpation and non-tender PALPATION: Yes Soft to palpation Neuro: COMMON NORMALS: patient oriented x3 SENSORIUM/ORIENTATION: Yes alert Skin: COMMON NORMALS: no rashes or lesions noted GENERAL SKIN EXAM: no rashes or lesions noted Course Vital Signs: Vital signs: Vital Signs Temperature 97.6 F 03/07/25 17:37 Pulse Rate 74 03/07/25 22:30 Respiratory Rate 18 03/07/25 22:30 Blood Pressure 151/92 03/07/25 21:47 Pulse Oximetry 95 03/07/25 22:30 Oxygen Delivery Me thod Room Air 03/07/25 21:42 MDM - Altered Mental Status Medical Decision Making In summary, patient is a 79-year-old male from home seen for proximal-isms of short-term memory loss which spontaneously resolved. He has not lost consciousness or had unilateral weakness or paresthesia to imply stroke or syncope. I am concerned he may be suffering from absence seizures and shared my concern with the on-call neurologist who recommended that he get loaded with Keppra and be admitted for further imaging and consideration for EEG. I spoke with the hospitalist service who will admit the patient for further workup. Patient is agreeable to the plan Lab Data 03/07/25 18:00 03/07/25 18:00 Radiology Impressions Chest X-Ray 03/07/25 17:25 IMPRESSION: No acute findings. Head CT 03/07/25 21:31 IMPRESSION: Senescent change. No acute intracranial abnormality. Laboratory Results WBC 6.83 10^3/uL (3.29-11.43) 03/07/25 18:00 RBC 5.44 10^6/uL (3.85-5.65) 03/07/25 18:00 Hgb 16.40 g/dL (11.27-16.99) 03/07/25 18:00 Hct 48.8 % (37-53) 03/07/25 18:00 MCV 89.7 fl (82-101) 03/07/25 18:00 MCH 30.1 pg (27-33) 03/07/25 18:00 MCHC 33.6 g/dL (30-55) 03/07/25 18:00 RDW 12.5 % (12.1-15.1) 03/07/25 18:00 Plt Count 160 10^3/cmm (157-399) 03/07/25 18:00 MPV 10.6 fL (7.4-10.4) H 03/07/25 18:00 Neut % (Auto) 50.3 % 03/07/25 18:00 Lymph % (Auto) 34.7 % 03/07/25 18:00 [place] % (Auto) 11.3 % 03/07/25 18:00 Eos % (Auto) 2.5 % 03/07/25 18:00 Baso % (Auto) 0.9 % 03/07/25 18:00 Neut # (Auto) 3.44 10^3/uL (1.8-7.7) 03/07/25 18:00 Lymph # (Auto) 2.4 10^3/uL (0.8-4.8) 03/07/25 18:00 [place] # (Auto) 0.8 10^3/uL (0.2-0.9) 03/07/25 18:00 Eos # (Auto) 0.2 10^3/uL (0.0-0.8) 03/07/25 18:00 Baso # (Auto) 0.1 10^3/uL (0.0-0.1) 03/07/25 18:00 Nucleated RBC % (auto) 0 % 03/07/25 18:00 Nucleated RBCs # 0.0 /100WBC 03/07/25 18:00 Sodium 141 mmol/L (136-145) 03/07/25 18:00 Potassium 4.2 mmol/L (3.5-5.1) 03/07/25 18:00 Chloride 103 mmol/L (98-107) 03/07/25 18:00 Carbon Dioxide 26 mmol/L (22-29) 03/07/25 18:00 Anion Gap 16.2 (5-19) 03/07/25 18:00 BUN 15 mg/dL (8-23) 03/07/25 18:00 Creatinine 1.1 mg/dL (0.7-1.2) 03/07/25 18:00 GFR Calculation Not Reportable 03/07/25 18:00 Glucose 97 mg/dL (65-115) 03/07/25 18:00 Calculated Osmolality 293 mOsm/kg (285-295) 03/07/25 18:00 Calcium 9.8 mg/dL (8.5-10.5) 03/07/25 18:00 Total Bilirubin 0.4 mg/dL (0.15-1.2) 03/07/25 18:00 AST 38 U/L (0-40) 03/07/25 18:00 ALT 41 U/L (0-41) 03/07/25 18:00 Alkaline Phosphatase 42 U/L (40-130) 03/07/25 18:00 Total Protein 7.7 g/dL (6.6-8.7) 03/07/25 18:00 Albumin 4.6 g/dL (3.5-5.2) 03/07/25 18:00 Globulin 3.1 g/dL (1.3-4.6) 03/07/25 18:00 TSH 6.31 uIU/mL (0.27-4.20) H 03/07/25 18:00 Urine Color Yellow (Yellow) 03/07/25 20:25 Urine Appearance Clear (CLEAR) 03/07/25: Urine pH 6.5 (5-7) 03/07/25: Ur Specific [place] 1.019 (1.005-1.030) 03/07/25 20: Urine Protein Negative (Negative) 03/07/25 20: Urine Glucose (UA) Negative (Normal) 03/07/25: Urine Ketones Trace (Negative) 03/07/25 Urine Blood Negative (Negative) 03/07/25 20:25 Urine Nitrate Negative (Negative) 03/07/25 20:25 Urine Bilirubin Negative (Negative) 03/07/25 20:25 Urine Urobilinogen 1.0 mg/dL (Negative) 03/07/25 20:25 Ur Leukocyte Esterase Negative (Negative) 03/07/25 20:25 Urine RBC 0-2 /hpf (0-2) 03/07/25 20:25 Urine WBC 0-5 /hpf (0-5) 03/07/25 20:25 Ur Squamous Epith Cells 0-5 /hpf (0-5) 03/07/25 20:25 Amorphous Sediment Not Reportable 03/07/25 20:25 Urine Bacteria None seen /hpf (NONE) 03/07/25 20:25 Hyaline Casts 0-4 /lpf H 03/07/25 20:25 All radiology interpretation(s) finalized by discharge EKG Data EKG 1: Interpretation: Time?1746?sinus rhythm, rate of 81, no ST segment elevation or depression, no T wave inversions, intervals within normal limits. QTc = 431 Discharge Plan Discharge Patient Disposition: Admitted As Inpatient Clinical Impression: Transient confusion Condition: Stable Coding Level of Care Code ED Scientific Specialist for Neeta Bucio
[2025-03-07] MEDS: iohexol 350 mg/mL 500 mL Btl (per mL) IV (23:39)
[2025-03-08] VITALS (38 sets, daily range): BP systolic 123–138; BP diastolic 74–93; PULSE 61–82; RESP 12–20; TEMP 36.4–36.7; O2SAT 90–97; BMI 30.5
--- NOTE | 2025-03-08 05:32 | PM.HP ---
Providers/Chief Complaint Admitting Physician: Brittney Morrow MD----patient seen before 12 midnight Primary Care Provider: Grace Lam MD Chief Complaint: weakness (5xdays)/iglobal amnesia intermittently History of Present Illness Santos Delaney is a 79 year old male with no history of prior noted seizure activity presented to the emergency room because of an intermittent global amnesia Angela he does not remember what happened before a particular activity and afterwards and will not even recognize the or anybody that he knows very well and within seconds he recovered immediately and recognized his and everybody else. This has been going on for the past 2 days. Today on patient presentation he found himself on top of the roof fixing the shingles which he had told the he was going to do and later on came down and got into the house telling the that he was up top of the roof did not know why and how he got there and was Colbert the what was he doing on top of the roof. The had to rearrange him and reminded him that he was up there trying to fix the shingles Patient presented to the emergency room for further evaluation. ED had consulted neurology prior to the consulting me to see the patient. Neurology advised that patient get loaded with Keppra and to continue with Keppra 500 mg twice daily. This looks like a post ectal intermittent global amnesia. Patient most likely has been having absent seizures without any twitching Bodly parts contractions CT head and CTA of the head and neck were done and there are no large vessel issues or occlusion. I will obtain an MRI today and the attending rounding physician to follow-up for the results. Review of Systems Narrative: System review upon 10 organ review with fairly unremarkable. Patient was awake alert oriented x 3 in the ED and was normal again. Patient is with the in the room. Medications/Allergies Home Medications ?Medication ?Instructions ?Recorded ?Confirmed ?Last Taken ?Type dicyclomine 20 mg tablet 20 mg PO BID 10/24/19 11/28/24 11/01/24 History donepezil 10 mg tablet 10 mg PO BEDTIME 10/24/19 11/28/24 10/31/24 History famotidine 20 mg tablet 20 mg PO BID 10/24/19 11/28/24 11/01/24 History polyethylene glycol 3350 17 17 gm PO BEDTIME 10/24/19 11/28/24 10/31/24 History gram/dose oral powder simvastatin 80 mg tablet 40 mg PO BEDTIME 10/24/19 11/28/24 10/31/24 History omega-3 fatty acids 1,000 mg 2,000 mg PO BID 02/10/22 11/28/24 11/01/24 History capsule aspirin 81 mg tablet,delayed 81 mg PO DAILY 09/21/23 11/28/24 11/01/24 History release (Adult Aspirin Regimen) enalapril maleate 5 mg tablet 5 mg PO BID 09/21/23 11/28/24 11/01/24 History naproxen sodium 220 mg capsule 220 mg PO BID PRN Pain 12/29/23 11/28/24 Unknown History (Aleve) gabapentin 100 mg capsule 200 mg (2 x 100 mg) PO TID #180 07/25/24 11/28/24 11/01/24 Rx caps ascorbic acid (vitamin C) 500 mg 250 mg PO DAILY 11/01/24 11/28/24 11/01/24 History tablet (Vitamin C) cholecalciferol (vitamin D3) 25 25 mcg PO DAILY 11/01/24 11/28/24 11/01/24 History mcg (1,000 unit) tablet (Vitamin D3) cyanocobalamin (vitamin B-12) 100 100 mcg PO DAILY 11/01/24 11/28/24 11/01/24 History mcg tablet (Vitamin B-12) ketoconazole 2 % topical cream 1 applic topical BID 11/01/24 11/28/24 Unknown History [id number]-[id number]-[id number] 1 tab PO DAILY 11/01/24 11/28/24 11/01/24 History tablet (Multivitamin 50 Plus tablet) Allergies Allergy/AdvReac Type Severity Reaction Status Date / Time diphenhydramine (From Allergy Unknown Unknown Verified 03/07/25 17:44 Benadryl) omeprazole (From Prilosec) Allergy Unknown Unknown Verified 03/07/25 17:44 PFSH Acute PFSH: Medical History Abdominal pain Diverticulosis Constipation Hypertension GERD (gastroesophageal reflux disease) Hyperlipidemia IBS (irritable bowel syndrome) Major depressive disorder Hiatal hernia Dysphagia Left inguinal hernia Surgical History History of left inguinal hernia repair (~10/2019) History of colonoscopy Family History Father Cancer lung Family/Other Diabetes Hypertension sister Denies family history of Anesthesia complication Bleeding disorder Social History Smoking and tobacco/nicotine status: never used tobacco/nicotine Second hand smoke exposure: No Alcohol intake: never Substance/Drug Use: never Adopted: No Caregiver/support person: Yes Lives independently: Yes Household members: spouse Housing: House Marital status: Highest education level completed: High School Graduate service: Yes (12 years with [employer]) branch: [employer] Current occupational status: retired Current occupational exposures/hazards: No Pets and animals: No Leisure activites: exercise Sexually active: No Do you think of yourself as: Straight/Heterosexual Current gender identity: Male Tessa/Hoahaoism: Spiritism Special tessa needs: No Agree to transfusion: No Vitals/I&O/Wt Last Vital Signs Temp 97.6 F 03/07/25 17:37 Pulse 73 03/08/25 05:00 Resp 16 03/08/25 05:00 BP 130/77 03/08/25 04:30 Pulse Ox 94 03/08/25 05:00 O2 Del Method Room Air 03/07/25 21:42 Weight last 48 hrs Weight 98.43 kg Physical Exam Narrative: Generally patient is doing well in no apparent distress pretty much alert awake oriented x 3 here in the emergency room and quite neurologically intact. HEENT normocephalic atraumatic neck neck is supple cardiovascular heart rate is regular lungs are clear with no adventitious breath sounds abdomen soft nontender nondistended unremarkable extremities intact no edema has good pulses neurology has no focality lab studies lab studies reviewed and noted. Data 03/07/25 18:00 03/07/25 18:00 A&P Assessment and plan (1) Transient global amnesia: -- Patient has intermittent global amnesia that is transient with very quick recovery - Patient presents for further evaluation. - This is likely due to absent seizures - Patient got 2 g of Keppra IV in the emergency room per neurology direction - And to continue with this 500 mg orally twice daily of Keppra is being given. - ED attending consulted neurology and neurology will be following up with this patient. (2) Transient confusion: -- This is due to transient and intermittent postictal global amnesia -- Patient has been loaded with IV Keppra 2 g and this is being followed with oral Keppra 500 mg twice daily --- Continue care and follow direction of the consultants neurologist - I will defer EEG ordering to neurologist, if he desires (3) Typical absence seizures, non-refractory: Patient absent seizure is none refractory Continue care with Keppra patient most likely may go home today after neurology have seen the patient if there are no other for workup in the hospital. Plan GI and DVT prophylaxis in place PDMP PDMP Reviewed: Last Reviewed 03/08/25 05:56 by Brittney Morrow MD Attestations Medical Necessity Statement*: I attest that this patient meets inpatient criteria with seizure activities requiring further evaluation. And also had involvement of the consultation of neurology. And the care of absence seizures. Patient need at least 2 midnights of this could be shortened but again this makes inpatient criteria. Coding Level of Care Code 29573 Diagnoses Transient global amnesia G45.4 Transient confusion R41.0 Typical absence seizures, non-refractory G40.A09 Time Spent (min) 60
--- NOTE | 2025-03-08 08:30 | PM.CONSULT ---
Providers/Reason For Consult Consulting Physician/Specialty*: Teto Moore MD neurology and epilepsy Reason for Consult*: Seizure-like episodes Attending Physician: Dina Sher MD Primary Care Provider: Grace Lam MD History of Present Illness History of Present Illness Santos Delaney is a 79 year old male followed by Dr. Ramos for seizure-like episodes, transient confusion. Patient has history of sleep apnea and hypertension. Patient was last evaluated by Dr. Ramos in 2023 and the patient's seizure-like spells were stable on Neurontin. The patient presented to the [facility] emergency department on 03/07/2025 with the patient's reporting the patient has been experiencing recurrent episodes of brief confusion and inability to recognize her for the past 3 to 4 days prior to admission. Noncontrast head CT and CT angiogram head and neck flex 01/21/2025 was unrevealing. Metabolic lab for CBC and comprehensive metabolic panel and TSH were performed on 03/07/2025. TSH was elevated at 6.31 (normal equals 0.27-4.2). EKG 03/08/2025 revealed normal sinus rhythm heart rate 81. The patient's other labs were unrevealing. I was contacted by the emergency room physician on the night of 03/07/2025 and recommended starting IV Keppra 1 g IV load followed by 500 mg orally every 12 hours. On the morning 03/08/2025 the patient's stated the patient has not experienced any further episodes of confusion. Patient has been scheduled for head MRI with and without contrast with attention to the temporal lobes to assess for mesial temporal sclerosis as well as to evaluate for any space-occupying lesions. Since the patient is stable we will plan to obtain EEG on an outpatient basis to be read by Dr. Ramos. The patient was stable and able to ambulate from the [facility] to the bed and sit on the side of the bed on the [facility] floor room 255 bed #2. Patient denied any side effects from the IV Keppra. Drug allergies: Benadryl type reaction unknown Omeprazole type reaction unknown Current medications: Keppra 1 g IV load on 03/07/2025 x 1 dose Keppra 500 mg p.o. twice daily (starting 03/08/2025) Neurontin (gabapentin) 200 mg p.o. 3 times daily Aspirin 81 mg p.o. daily Vitamin C 250 mg p.o. daily Vitamin D3 25 mcg p.o. daily Vitamin B12 100 mcg p.o. daily Dicyclomine 20 mg p.o. twice daily Aricept 10 mg p.o. nightly Enalapril 5 mg p.o. twice daily Pepcid 20 mg p.o. twice daily Naproxen 220 mg p.o. twice daily, as needed pain [place]-3 fatty acid 2000 mg p.o. twice daily Zocor 40 mg p.o. nightly MiraLAX 17 g p.o. nightly Past medical history: Elevated TSH suggestive of hypothyroidism (labs performed on 03/07/2025) Seizure-like episodes described as altered awareness Transient global amnesia Transient confusion Syncope Obstructive sleep apnea Hypersomnia Hypertension Chest pain Left inguinal hernia Habits: None Family history: Negative for seizures Social history: Patient lives with his Review of Systems General: Reports: 10 or more systems reviewed and unremarkable except in HPI and below Medications/Allergies Home Medications ?Medication ?Instructions ?Recorded ?Confirmed ?Last Taken ?Type dicyclomine 20 mg tablet 20 mg PO BID 10/24/19 03/08/25 03/07/25 History donepezil 10 mg tablet 10 mg PO BEDTIME 10/24/19 03/08/25 03/06/25 20:00 History famotidine 20 mg tablet 20 mg PO BID 10/24/19 03/08/25 03/07/25 08:00 History polyethylene glycol 3350 17 17 gm PO BEDTIME 10/24/19 03/08/25 03/06/25 20:00 History gram/dose oral powder simvastatin 80 mg tablet 40 mg PO BEDTIME 10/24/19 03/08/25 03/06/25 20:00 History omega-3 fatty acids 1,000 mg 2,000 mg PO BID 02/10/22 03/08/25 03/07/25 08:00 History capsule aspirin 81 mg tablet,delayed 81 mg PO DAILY 09/21/23 03/08/25 03/07/25 07:00 History release (Adult Aspirin Regimen) enalapril maleate 5 mg tablet 5 mg PO BID 09/21/23 03/08/25 03/07/25 07:00 History naproxen sodium 220 mg capsule 220 mg PO BID PRN Pain 12/29/23 03/08/25 Unknown History (Aleve) gabapentin 100 mg capsule 200 mg (2 x 100 mg) PO TID #180 07/25/24 03/08/25 03/07/25 08:00 Rx caps ascorbic acid (vitamin C) 500 mg 250 mg PO DAILY 11/01/24 03/08/25 03/07/25 07:00 History tablet (Vitamin C) cholecalciferol (vitamin D3) 25 25 mcg PO DAILY 11/01/24 03/08/25 03/07/25 History mcg (1,000 unit) tablet (Vitamin D3) cyanocobalamin (vitamin B-12) 100 100 mcg PO DAILY 11/01/24 03/08/25 03/07/25 History mcg tablet (Vitamin B-12) ketoconazole 2 % topical cream 1 applic topical BID 11/01/24 03/08/25 Unknown History qojcnnhphszj-dseukmva-okatgi 1 tab PO DAILY 11/01/24 03/08/25 03/07/25 History tablet (Multivitamin 50 Plus tablet) Allergies Allergy/AdvReac Type Severity Reaction Status Date / Time diphenhydramine (From Allergy Unknown Unknown Verified 03/07/25 17:44 Benadryl) omeprazole (From Prilosec) Allergy Unknown Unknown Verified 03/07/25 17:44 PFSH Acute PFSH: Medical History Abdominal pain Diverticulosis Constipation Hypertension GERD (gastroesophageal reflux disease) Hyperlipidemia IBS (irritable bowel syndrome) Major depressive disorder Hiatal hernia Dysphagia Left inguinal hernia Surgical History History of left inguinal hernia repair (~10/2019) History of colonoscopy Family History Father Cancer lung Family/Other Diabetes Hypertension sister Denies family history of Anesthesia complication Bleeding disorder Social History Smoking and tobacco/nicotine status: never used tobacco/nicotine Second hand smoke exposure: No Alcohol intake: never Substance/Drug Use: never Adopted: No Caregiver/support person: Yes Lives independently: Yes Household members: spouse Housing: House Marital status: Highest education level completed: High School Graduate service: Yes (12 years with [employer]) branch: [employer] Current occupational status: retired Current occupational exposures/hazards: No Pets and animals: No Leisure activites: exercise Sexually active: No Do you think of yourself as: Straight/Heterosexual Current gender identity: Male Tessa/Scientologist: Sikh Special tessa needs: No Agree to transfusion: No Vitals/I&O/Wt Last Vital Signs Temp 97.6 F 03/07/25 17:37 Pulse 70 03/08/25 07:21 Resp 16 03/08/25 07:00 BP 138/82 03/08/25 07:21 Pulse Ox 92 03/08/25 07:21 O2 Del Method Room Air 03/07/25 21:42 03/07/25 03/08/25 03/08/25 22:59 06:59 14:59 Intake Total 200 / 200 Balance 200 / 200 Weight last 48 hrs Weight 217 lb Physical Exam Narrative: The patient is alert and oriented x 3. Speech fluent. Head normocephalic. Neck supple. Cranial nerves II through XII intact pupils 4 mm round reactive to light and accommodation. Extraocular movements intact. Motor testing 5/5 bilaterally. Sensory examination intact to touch. Throat clear. Lungs clear. Heart regular rhythm and rate. Extremities were negative for cyanosis. Data 03/07/25 18:00 03/07/25 18:00 A&P Assessment and plan (1) Seizures: Impression: 1. Seizure-like episodes described as brief episodes of confusion and inability to recognize his during the confusion episodes 3 to 4 days prior to admission currently stable on Keppra 2. History of seizure-like episodes and confusion treated with Neurontin which initially stabilized the patient's episodes of confusion 3. Elevated TSH suggestive of hypothyroidism Plan: 1. Head MRI with and without contrast with attention to the temporal lobes to assess for mesial temporal sclerosis 2. Recommend addressing elevated TSH suggestive of hypothyroidism 3. Continue Keppra 500 mg p.o. twice daily for possible seizures 4. Seizure precautions per state law which includes but not limited to no driving or participating in activity that would endanger the patient or others in the event the patient experienced a seizure or confusion episode while participating in those activities per state law 5. Since the patient is stable, okay to obtain EEG on outpatient basis to be read by Dr. Ramos 6. Schedule patient for follow-up in the [facility] neurology clinic with Dr. Ramos 1 to 2 weeks after discharge 7. Patient stable from neurological standpoint for discharge planning after the head MRI has been obtained and if no significant findings observed on head MRI. (2) Transient confusion: PDMP PDMP Reviewed: Not Reviewed Consult Attestations Medical Necessity Statement: The patient was evaluated by neurology for seizure-like episodes described as recurrent episodes of brief confusion Coding Level of Care Code 24461 Diagnoses Seizures R56.9 Transient confusion R41.0
[2025-03-08] MEDS: heparin 5,000 unit/mL INJ 1 mL 5000 UNIT SUBCUT (08:36)
[2025-03-08] MEDS: levETIRAcetam 500 mg Tablet PO (08:36)
[2025-03-08] MEDS: docusate sodium 100 mg Capsule PO (08:36)
[2025-03-08] MEDS: sodium chloride 0.9% 1,000 ML 75 ML IV (08:37)
[2025-03-08 09:16] LABS: Basophils # 0.1 10^3/uL (0.0-0.1); Eosinophils # 0.2 10^3/uL (0.0-0.8); Eosinophils % 2.9 %; Hematocrit 48.6 % (37-53); Lymphocytes # 2.4 10^3/uL (0.8-4.8); Mean Corpuscular HGB Conc 33.1 g/dL (30-55); Mean Corpuscular Hemoglobin 29.4 pg (27-33); Mean Corpuscular Volume 88.7 fl (82-101); Mean Platelet Volume 10.4 fL (7.4-10.4); Monocytes # 0.5 10^3/uL (0.2-0.9); Monocytes % 8.3 %; Neutrophils # 3.09 10^3/uL (1.8-7.7); Neutrophils % 49.3 %; Nucleated Red Blood Cells % 0 %; Platelet Count 158 10^3/cmm (157-399); Red Blood Count 5.48 10^6/uL (3.85-5.65); Red Cell Distribution Width 12.4 % (12.1-15.1); White Blood Count 6.26 10^3/uL (3.29-11.43)
[2025-03-08 09:33] LABS: Alanine Aminotransferase 39 U/L (0-41); Albumin Level 4.5 g/dL (3.5-5.2); Alkaline Phosphatase 43 U/L (40-130); Anion Gap 11.6 (5-19); Aspartate Amino Transferase 35 U/L (0-40); Blood Urea Nitrogen 15 mg/dL (8-23); Calcium 9.4 mg/dL (8.5-10.5); Carbon Dioxide 28 mmol/L (22-29); Chloride 103 mmol/L (98-107); Creatinine Clr Calc Pharmacy 78.8663; Globulin 3.4 g/dL (1.3-4.6); Glucose 97 mg/dL (65-115); Magnesium 2.2 mg/dL (1.7-2.3); Osmolality Calculated 287 mOsm/kg (285-295); Potassium 4.6 mmol/L (3.5-5.1); Sodium 138 mmol/L (136-145); Total Bilirubin 0.5 mg/dL (0.15-1.2); Total Protein 7.9 g/dL (6.6-8.7)
--- NOTE | 2025-03-08 12:04 | MR_ITS ---
WS: [id number] MRI BRAIN WITH AND WITHOUT CONTRAST HISTORY: transient global amnesia COMPARISON: 11/15/2024, CT head 03/07/2025 TECHNIQUE: Multiplanar imaging performed through the brain with MultiHance 20 ml's IV. Normal diffusion imaging. No acute infarct. Mild cerebral and cerebellar atrophy and small vessel disease. No prior infarct. Periventricular and subcortical white matter changes are stable. There is signal changes within the cerebellum which I believe artifact from motion. No susceptibility artifacts or prior lacunar infarcts. Ventricles and extra-axial spaces are normal. Clivus and pituitary gland are normal. Visualized posterior fossa and brainstem are also normal. Postcontrast images are negative for masses or vascular malformations. Dural venous sinuses are normal. Paranasal sinuses: Well aerated with no significant disease. Mastoid air cells: Normal. Calvarium and scalp: Normal. MR/MR head wo/w con [id number] IMPRESSION: 1. No acute infarct. Diffusion imaging is normal. 2. No enhancing masses or vascular malformations. There is motion artifact res ulting in signal changes in the cerebellum. This does appear to be an artifact and is only seen on a few sequences. 3. Mild small vessel disease and periventricular white matter disease.
--- NOTE | 2025-03-08 12:04 | PM.PN ---
Vitals/I&O/Wt Last Vital Signs Temp 97.6 F 03/08/25 11:25 Pulse 75 03/08/25 11:25 Resp 17 03/08/25 11:25 BP 134/93 03/08/25 11:25 Pulse Ox 97 03/08/25 11:25 O2 Del Method Room Air 03/08/25 11:25 03/07/25 03/08/25 03/08/25 22:59 06:59 14:59 Intake Total 200 / 200 Balance 200 / 200 Weight last 48 hrs Weight 96.57 kg Weight 98.43 kg Data 03/08/25 08:56 03/08/25 08:56 A&P PDMP PDMP Reviewed: Not Reviewed Coding Level of Care Code Acute Code for Chg Fortunato
[2025-03-08 12:33] LABS: Estmated Average Glucose 140; Hemoglobin A1C 6.5 % (4.0-6.0)
[2025-03-08 12:37] LABS: Chol HDL Ratio 4.93 mg/dL (1.0-5.00); Cholesterol 133 mg/dL (0-200); HDL Cholesterol 27 mg/dL (60-100); LDL Cholesterol Calculated 55 mg/dL (50-129); Triglycerides 255 mg/dL (0-150); VLDL Cholestrol Calculation 51 mg/dL (0-30)
[2025-03-08] MEDS: gadobenate dimeglumine 20 mL vial IV (13:31)
--- NOTE | 2025-03-08 13:53 | PC.OT ---
Patient is in MRI when treatment was attempted. Will attempt tomorrow.
--- NOTE | 2025-03-08 15:02 | PM.DCS ---
Discharge Providers Date of Admission: 03/07/25 23:09 Date of Discharge: March 08, 2025 Attending Provider at Admission: Brittney Morrow MD Attending Provider at Discharge: Dina Sher MD Primary Care Provider: Grace Lam MD Diagnoses at Discharge Discharge Diagnosis (1) Seizures: Status: Acute (2) Transient confusion: Status: Resolved Reason for Visit Reason for Visit: weakness (5xdays)/iglobal amnesia intermittently Hospital Course Hospital Course Patient admitted to the hospital with episode of transient global amnesia. Unclear if there was underlying seizures. Neurology was consulted and they are planning to do an MRI and if no acute pathology identified patient [facility]. He was initiated on Keppra. Patient recommended home exercise program by PT. patient was recommended to have outpatient EEG and to follow-up with Dr. Ramos. Physical Exam Narrative: Generally patient is doing well in no apparent distress pretty much alert awake oriented x 3 here in the emergency room and quite neurologically intact. HEENT normocephalic atraumatic neck neck is supple cardiovascular heart rate is regular lungs are clear with no adventitious breath sounds abdomen soft nontender nondistended unremarkable extremities intact no edema has good pulses neurology has no focality lab studies lab studies reviewed and noted. Discharge Data Studies Completed and Pending Completed Studies During Hospitalization Category Date Time Status CT head wo con* [id number] Stat Cat Scan 03/07/25 21:31 Completed CTA head neck [CT angio headneck* [id number]] Stat Cat Scan 03/07/25 22:53 Completed XR chest 1V portable [id number] Stat Exams 03/07/25 17:25 Completed MR head wo/w con [id number] Urgent MRI 03/08/25 12:04 Completed Pending at discharge Category Date Time Status Phosphorus AM LABS Lab 03/09/25 04:00 Ordered Radiology Impressions Chest X-Ray 03/07/25 17:25 IMPRESSION: No acute findings. Head CT 03/07/25 21:31 IMPRESSION: Senescent change. No acute intracranial abnormality. Head/Neck CTA 03/07/25 22:53 IMPRESSION: 1. No large vessel occlusion. 2. No large territorial infarct or intracranial bleed. 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 REFERENCES: NASCET CRITERIA. The degree of stenosis in the cervical segment of the internal carotid artery is based on NASCET criteria. Normal is no stenosis. Mild is less than 50% stenosis. Moderate is 50-69% stenosis. Severe is 70% to 99% stenosis. Total occlusion is no detectable patent lumen. Head MRI 03/08/25 12:04 IMPRESSION: 1. No acute infarct. Diffusion imaging is normal. 2. No enhancing masses or vascular malformations. There is motion artifact resulting in signal changes in the cerebellum. This does appear to be an artifact and is only seen on a few sequences. 3. Mild small vessel disease and periventricular white matter disease. Laboratory Results WBC 6.26 10^3/uL (3.29-11.43) 03/08/25 08:56 RBC 5.48 10^6/uL (3.85-5.65) 03/08/25 08:56 Hgb 16.10 g/dL (11.27-16.99) 03/08/25 08:56 Hct 48.6 % (37-53) 03/08/25 08:56 MCV 88.7 fl (82-101) 03/08/25 08:56 MCH 29.4 pg (27-33) 03/08/25 08:56 MCHC 33.1 g/dL (30-55) 03/08/25 08:56 RDW 12.4 % (12.1-15.1) 03/08/25 08:56 Plt Count 158 10^3/cmm (157-399) 03/08/25 08:56 MPV 10.4 fL (7.4-10.4) 03/08/25 08:56 Neut % (Auto) 49.3 % 03/08/25 08:56 Lymph % (Auto) 38.0 % 03/08/25 08:56 [place] % (Auto) 8.3 % 03/08/25 08:56 Eos % (Auto) 2.9 % 03/08/25 08:56 Baso % (Auto) 1.0 % 03/08/25 08:56 Neut # (Auto) 3.09 10^3/uL (1.8-7.7) 03/08/25 08:56 Lymph # (Auto) 2.4 10^3/uL (0.8-4.8) 03/08/25 08:56 [place] # (Auto) 0.5 10^3/uL (0.2-0.9) 03/08/25 08:56 Eos # (Auto) 0.2 10^3/uL (0.0-0.8) 03/08/25 08:56 Baso # (Auto) 0.1 10^3/uL (0.0-0.1) 03/08/25 08:56 Nucleated RBC % (auto) 0 % 03/08/25 08:56 Nucleated RBCs # 0.0 /100WBC 03/08/25 08:56 Sodium 138 mmol/L (136-145) 03/08/25 08:56 Potassium 4.6 mmol/L (3.5-5.1) 03/08/25 08:56 Chloride 103 mmol/L (98-107) 03/08/25 08:56 Carbon Dioxide 28 mmol/L (22-29) 03/08/25 08:56 Anion Gap 11.6 (5-19) 03/08/25 08:56 BUN 15 mg/dL (8-23) 03/08/25 08:56 Creatinine 0.9 mg/dL (0.7-1.2) 03/08/25 08:56 GFR Calculation Not Reportable 03/08/25 08:56 Glucose 97 mg/dL (65-115) 03/08/25 08:56 Estimat Average Glucose 140 03/08/25 08:56 Hemoglobin A1c 6.5 % (4.0-6.0) H 03/08/25 08:56 Calculated Osmolality 287 mOsm/kg (285-295) 03/08/25 08:56 Calcium 9.4 mg/dL (8.5-10.5) 03/08/25 08:56 Magnesium 2.2 mg/dL (1.7-2.3) 03/08/25 08:56 Total Bilirubin 0.5 mg/dL (0.15-1.2) 03/08/25 08:56 AST 35 U/L (0-40) 03/08/25 08:56 ALT 39 U/L (0-41) 03/08/25 08:56 Alkaline Phosphatase 43 U/L (40-130) 03/08/25 08:56 Total Protein 7.9 g/dL (6.6-8.7) 03/08/25 08:56 Albumin 4.5 g/dL (3.5-5.2) 03/08/25 08:56 Globulin 3.4 g/dL (1.3-4.6) 03/08/25 08:56 Triglycerides 255 mg/dL (0-150) H 03/08/25 08:56 Cholesterol 133 mg/dL (0-200) 03/08/25 08:56 LDL Cholesterol, Calc 55 mg/dL (50-129) 03/08/25 08:56 Total VLDL Cholesterol 51 mg/dL (0-30) H 03/08/25 08:56 HDL Cholesterol 27 mg/dL (60-100) L 03/08/25 08:56 Cholesterol/HDL Ratio 4.93 mg/dL (1.0-5.00) 03/08/25 08:56 TSH 6.31 uIU/mL (0.27-4.20) H 03/07/25 18:00 Urine Color Yellow (Yellow) 03/07/25:25 Urine Appearance Clear (CLEAR) 03/07/25 20:25 Urine pH 6.5 (5-7) 03/07/25 20:25 Ur Specific [place] 1.019 (1.005-1.030) 03/07/25 20:25 Urine Protein Negative (Negative) 03/07/25 20:25 Urine Glucose (UA) Negative (Normal) 03/07/25 20:25 Urine Ketones Trace (Negative) 03/07/25 20:25 Urine Blood Negative (Negative) 03/07/25 20:25 Urine Nitrate Negative (Negative) 03/07/25 20:25 Urine Bilirubin Negative (Negative) 03/07/25 20:25 Urine Urobilinogen 1.0 mg/dL (Negative) 03/07/25 20:25 Ur Leukocyte Esterase Negative (Negative) 03/07/25 20:25 Urine RBC 0-2 /hpf (0-2) 03/07/25 20:25 Urine WBC 0-5 /hpf (0-5) 03/07/25 20:25 Ur Squamous Epith Cells 0-5 /hpf (0-5) 03/07/25 20:25 Amorphous Sediment Not Reportable 03/07/25 20:25 Urine Bacteria None seen /hpf (NONE) 03/07/25 20:25 Hyaline Casts 0-4 /lpf H 03/07/25 20:25 Vitals Last Vital Signs Temp 97.6 F 03/08/25 11:25 Pulse 75 03/08/25 11:25 Resp 17 03/08/25 11:25 BP 134/93 03/08/25 11:25 Pulse Ox 97 03/08/25 11:25 O2 Del Method Room Air 03/08/25 11:25 Discharge Plan Discharge Patient Disposition: Home Condition: Stable Prescriptions: New levetiracetam 500 mg Tablet 500 mg PO BID Qty: 60 0RF Continued donepezil 10 mg tablet 10 mg PO BEDTIME famotidine 20 mg tablet 20 mg PO BID polyethylene glycol 3350 17 gram/dose powder 17 gm PO BEDTIME simvastatin 80 mg tablet 40 mg PO BEDTIME dicyclomine 20 mg tablet 20 mg PO BID naproxen sodium [Aleve] 220 mg capsule 220 mg PO BID PRN (Reason: Pain) aspirin [Adult Aspirin Regimen] 81 mg tablet,delayed release (DR/EC) 81 mg PO DAILY enalapril maleate 5 mg tablet 5 mg PO BID gabapentin 100 mg capsule 200 mg PO TID Qty: 180 11RF omega-3 fatty acids 1,000 mg Capsule 2,000 mg PO BID cyanocobalamin (vitamin B-12) [Vitamin B-12] 100 mcg Tablet 100 mcg PO DAILY ascorbic acid (vitamin C) [Vitamin C] 500 mg Tablet 250 mg PO DAILY ketoconazole 2 % Cream 1 applic TOPICAL BID Multivitamin 50 Plus Tablet 1 tab PO DAILY cholecalciferol (vitamin D3) [Vitamin D3] 25 mcg (1,000 unit) Tablet 25 mcg PO DAILY Discharge Orders: Discharge Order (Routine); Ordered 03/08/25 Ordered By: Dina Sher Other Ambulatory Orders: EEG amplitude integrated aEEG (Routine) Timeframe: 1 Day Facility: [facility] - Location: Neurology Ordered By: Dina Sher Referrals: Grace Lam MD [Primary Care Provider, Family Practice] - 4-7 days Referral Note: We have notified your physician's clinic of the need for a follow-up appointment to be scheduled. If you have not heard from them within the next 2 business days, please call them directly. Laureen Ramos MD [Physician, Neurology] - 11/27/25 11:00 am Discharge Diet: Cardiac Discharge Activity: As per PT/OT instructions Patient Instructions: Levetiracetam (By mouth), Altered Mental Status (ED), Opioid Safety, Seizures Activity Restrictions/Additional Instructions: Seizure Precautions Do not drive or operate machinery until seen by neurology as outpatient and have obtained clearance from them. Discharge Attestations Time Spent in Discharge Care*: less than 30 min Quality Metrics Clinical Quality Measures [ No reported AMI, CVA or VTE this stay] Coding Level of Care Code Acute Code for Chg Fwd Diagnoses Seizures R56.9 Transient confusion R41.0
[2025-03-08 15:46] LABS: Free T4 Free Thyroxine 1.14 ng/dL (0.82-1.77)
== END 2025-03-08 16:19 | disposition home or self-care (01) | DRG 101 ==
LOC: ER 23:34 → ER IP 23:59 → MEDSURG 03-08 06:22
PROVIDERS: Emergency Medicine; Admitting Provider Internal Medicine; Emergency Provider Student in an Organized Health Care Education/Training Program; PCP Family Medicine; Visit Provider Internal Medicine
DX: G40.A09 Absence epileptic syndrome, not intractable, without status epilepticus (principal); R40.4 Transient alteration of awareness; K57.90 Diverticulosis of intestine, part unspecified, without perforation or abscess without bleeding; I10 Essential (primary) hypertension; K21.9 Gastro-esophageal reflux disease without esophagitis; E78.5 Hyperlipidemia, unspecified; K58.9 Irritable bowel syndrome, unspecified; F32.9 Major depressive disorder, single episode, unspecified; K44.9 Diaphragmatic hernia without obstruction or gangrene; R13.10 Dysphagia, unspecified; G47.33 Obstructive sleep apnea (adult) (pediatric); Z79.82 Long term (current) use of aspirin
CPT/HCPCS: 36415; 70450; 70496; 70498; 70553; 71045; 80053; 80061; 81001; 83036; 83735; 84439; 84443; 85025; 93005; 96365; 96372; 97161; 99285; J1644; J1953; J7030; J9999

== ENCOUNTER → 2025-05-30 13:57 | Outpatient (BNVA) | payer OTHER, SELFPAY | PROVIDERS: PCP Family Medicine; Visit Provider Internal Medicine | DX: I10 Essential (primary) hypertension (principal) | CPT/HCPCS: 99213 ==

== ENCOUNTER 2025-06-03 05:51 | Emergency (ER) | payer OTHER, SELFPAY ==
--- OUTSIDE RECORDS SUMMARY | 2024-07-04 08:30 | XMS_ITS | Encounter Summary ---
Author Name [facility] [place] [facility] [place] Address [address] [place] [address] Care Team Providers Care Supervisor Cigar Processing Name Role Phone GRACE MONTENEGRO Primary Care Provider Unavailabl e Insurance Providers: All historical and current Section Date Range: From patient's date of to the date document was created. This section includes the names of all active insurance providers for the patient. Insurance Provider Type of Coverage Plan Name Start of Policy Coverage End of Policy Coverage Group Number Member ID Insurance Provider's Telephone Number Policy Burgess's Name Patient's Relationship to Policy Burgess MEDICARE (WNR) MEDICARE (M) PART A Dec 03, 2011 PART A [id number] [phone] ERICKSONDAVIDMIRTHA WALDEN PATIENT MEDICARE (WNR) MEDICARE (M) PART A Dec 03, 2011 PART A [id number] ERICKSONDAVIDMIRTHA WALEDN PATIENT Selected Encounter This section includes the information on record at [place] for the Encounter. Date/Time Encounter Type Encounter Description Reason Provider Source Jul 04, 2024 01:30 PM OFFICE O/P EST MOD 30 MIN PRIMARY CARE/MEDICINE ICD-10-CM F03.90 Unsp dementia, unsp severity, without beh/psych/mood /anx GRACE MONTENEGRO IHCullen Encounter Template Text not used by [facility] Assessments - Encounter Diagnoses This section includes the primary and secondary diagnoses documented for the Encounter. Date/Time Primary/Secondary Diagnosis Diagnosis Name Provider Source Jul 04, 2024 02:02 PM PRIMARY Unsp dementia, unsp severity, without beh/psych/mood/anx [facility] Jul 04, 2024 02:02 PM SECONDARY Actinic keratosis [facility] Jul 04, 2024 02:02 PM SECONDARY Basal cell carcinoma of skin of unspecified parts of face [facility] Jul 04, 2024 02:02 PM SECONDARY Constipation, unspecified [facility] Jul 04, 2024 02:02 PM SECONDARY Contact with and exposure to other hazardous substances [facility] Jul 04, 2024 02:02 PM SECONDARY Essential (primary) hypertension [facility] Jul 04, 2024 02:02 PM SECONDARY Gastro-esophageal reflux disease without esophagitis [facility] Jul 04, 2024 02:02 PM SECONDARY Hyperlipidemia, unspecified [facility] Jul 04, 2024 02:02 PM SECONDARY Irritable bowel syndrome with constipation [facility] Jul 04, 2024 02:02 PM SECONDARY Male erectile dysfunction, unspecified [facility] Jul 04, 2024 02:02 PM SECONDARY Prediabetes [facility] Jul 04, 2024 02:02 PM SECONDARY Tinea corporis [facility] Jul 04, 2024 02:02 PM SECONDARY Unspecified convulsions [facility] Jul 04, 2024 02:02 PM SECONDARY Unspecified ptosis of unspecified eyelid [facility] Plan of Treatment: Future Appointments (+ 6 months) and Future Tests (+/- 45 days) The Plan of Treatment section includes future care activities for the patient from all [facility] treatmentfacilities. This section includes future appointments and future orders which are active, pending or scheduled. Future Appointments This section includes appointments that were scheduled to occur 6 months from the date of the Encounter, up to a maximum of 20 appointments. The data comes from all [place] treatment facilities. Appointment Date/Time Appointment Type Appointme nt Facility Name Jul 20, 2024 10:00 AM AMBULATORY - MEDICINE [facility] Jul 25, 2024 12:30 PM [place] [facility] Oct 30, 2024 10:49 AM AMBULATORY - MEDICINE [facility] Nov 02, 2024 02:30 PM AMBULATORY - MEDICINE [facility] Nov 09, 2024 09:30 AM [facility] [place] [facility] Nov 15, 2024 01:00 PM [facility] [place] [facility] Nov 28, 2024 09:30 AM [facility] [place] [facility] Nov 28, 2024 01:45 PM [facility] [place] [facility] Nov 28, 2024 03:00 PM [facility] [place] [facility] Nov 30, 2024 08:00 AM [facility]ORY - [place]IC[place] [facility] Dec 20, 2024 09:45 AM AMBULATORY - MEDICINE [facility] Dec 27, 2024 09:30 AM [facility] - [place] [facility] Dec 27, 2024 09:32 AM AMBULATORY - MEDICINE [facility] Lab Results: +/- 30 days of the encounter This section includes the Chemistry and Hematology Lab Results on record with [place] for the patient. Radiology Reports and Pathology Reports are provided separately, in subsequent sections. Lab Results This section contains the Chemistry/Hematology Results that were resulted 30 days before or 30 daysafter the date of the Encounter. Date/Time Source Result Type Result - Unit Interpretation Reference Range Specimen Type Comment Jun 28, 2024 08:07 AM [facility] CBC BLOOD Specimen Type: BLOOD No comment entered. Ordering Provider: GRACE MONTENEGRO Report Released Date/Time: Jul 08, 2023 09:42 AM Reporting Lab: [place] [facility] [address] [place] [address] Performing Lab: [place] [facility] [address] [place] [address] WBC 6.8 10*3/uL 3.6-11.2 RBC 5.54 10*6/uL 4.10-5.70 HGB 16.6 g/dL 13.1-16.8 HCT 48.9 H 38.2-48.4 MCV 88.3 fL 80.0-100.0 MCH 30.0 pg 27.0-34.0 MCHC 33.9 g/dL 33.0-36.0 PLT 161 10*3/uL 150-400 MPV 10.9 fL 7.5-11.2 RDW 12.6 11.8-15.1 LYMPHOCYTES, AUTO % 30.1 MONOCYTES, AUTO % 10.8 NEUTROPHILS, AUTO % 55.0 EOSINOPHILS, AUTO % 2.8 BASOPHILS, AUTO % 1.0 LYMPHOCYTES, ABSOLUTE 2.03 10*3/uL 0.77- 4.50 MONOCYTES, ABSOLUTE 0.73 10*3/uL 0.19-0. 8 NEUTROPHILS, ABSOLUTE 3.71 10*3/uL 2.10- 8.00 EOSINOPHILS, ABSOLUTE 0.19 10*3/uL 0.00- 0.60 BASOPHILS, ABSOLUTE 0.07 10*3/uL 0.00-0. 20 IMMATURE GRANS, AUTO % 0.3 IMMATURE GRANS, AUTO ABS 0.02 10*3/uL 0. 00-0.05 Jun 28, 2024 08:06 AM [facility] COMPREHENSIVE METABOLIC PANEL PLASMA Specimen Type: PLASMA No comment entered. Ordering Provider: GRACE MONTENEGRO Report Released Date/Time: Jul 08, 2023 09:42 AM Reporting Lab: [facility] PEREY[facility] [address] [facility] [place] [facility] [address] Performing Lab: [place] [facility] [address] [place] [facility] [address] CREATININE 1.18 mg/dL 0.7-1.3 UREA NITROGEN 12 mg/dL 9-25 GLUCOSE 109 mg/dL H 72-99 SODIUM 136 meq/L 136-145 POTASSIUM 4.5 meq/L 3.5-5 CHLORIDE 104 meq/L 98-107 CARBON DIOXIDE 25 meq/L 22-31 CALCIUM 9.7 mg/dL 8.4-10.4 PROTEIN 7.7 g/dL 6-8.6 ALBUMIN 4.4 g/dL 3.4-5 TOTAL BILIRUBIN 0.4 mg/dL 0.2-1.2 ALKALINE PHOSPHATASE 37 U/L L 40-150 AST/SGOT 33 U/L 5-34 ALT/SGPT 35 U/L 8-40 EGFR (CKD-EPI 2020) 64 Jun 28, 2024 08:06 AM [facility] HGA1C BLOOD Specimen Type: BLOOD No comment entered. Ordering Provider: GRACE MONTENEGRO Report Released Date/Time: Jul 08, 2023 09:42 AM Reporting Lab: [place] [facility] [address] [address] Performing Lab: [place] [facility] [address] [address] HGA1C 6.2 H 4.0-6.0 Jun 28, 2024 08:06 AM [facility] CHOLESTEROL PANEL (PB) PLASMA Specimen Type: P LASMA No comment entered. Ordering Provider: GRACE MONTENEGRO Report Released Date/Time: Jul 08, 2023 09:42 AM Reporting Lab: [place] [facility] [address] [address] Performing Lab: [place] [facility] [address] [address] CHOLESTEROL 137 mg/dL 0-200 TRIGLYCERIDE 206 mg/dL H 0-150 CALCULATED LDL 66.8 mg/dL HDL(New) 29.0 mg/dL L >40 HDL % OF TOTAL CHOLESTEROL (PB) 21.2 >25 Jun 28, 2024 08:06 AM [facility] TSH (MA-PB) SERUM Specimen Typ e: SERUM No comment entered. Ordering Provider: GRACE MONTENEGRO Report Released Date/Time: Jul 08, 2023 09:42 AM Reporting Lab: [place] [facility] [address] [place] [address] Performing Lab: [place] [facility] [address] [address] TSH 3.374 u[IU]/mL 0.47-5 Vital Signs: All taken on the encounter date This section contains inpatient and outpatient Vital Signs collected on the date of the Encounter. Date/Time Temperature Pulse Blood Pressure Respiratory Rate SP02 Pain Height Weight Body Mass Index Source Jul 04, 2024 01:39 PM 97.6 72 132/84 18 95 0 70.0 213.5 31 [facility] Social History: Smoking Status (Most current) and Tobacco Use (All prior to encounter date) This section includes the most current, and the historical, smoking and tobacco- related health factors from the [place] facility where the Encounter took place. Current Smoking Status This section includes the most current smoking, or tobacco-related health factor, from the [place] facility where the Encounter took place. Date/Time Current Smoking Status Comment Jenise ity Jul 04, 2024 01:30 PM VA-TOBACCO NEVER USED [facility] Tobacco Use History This section includes a history of the smoking, or tobacco-related health factors, that were collected on or before the date of the Encounter. The data comes from the [place] facility where the Encounter took place. Date/Time Smoking Status/Tobacco Use Comment F acility Jul 08, 2023 09:00 AM VA-TOBACCO NEVER USED [facility] Jul 14, 2022 09:00 AM VA-TOBACCO NEVER USED [facility] [place] [facility] Aug 13, 2020 09:00 AM VA-TOBACCO [place] USED [place] [place] [facility] Aug 22, 2019 08:33 AM VA-TOBACCO NEVER USED [place] Jan 09, 2010 01:44 PM LIFETIME NON-USER OF TOBACCO [facility] Advance Directives: All historical and current Section Date Range: From patient's date of to the date document was created. This section includes ALL of a patient's completed or amended [place] Advance and Rescinded Directives. The entries below indicate that a directive exists for the patient, but an actual copy is not included with this document. The data comes from all [place] facilities. Date Advance Directives Provider Source Nov 07, 2012 ADVANCE DIRECTIVE KIAN MORLEY FF [facility] May 05, 2011 ADVANCE DIRECTIVE MOHAMUD BRISENO [facility] Apr 13, 2011 ADVANCE DIRECTIVE DISCUSSION MOHAMUD BRISENO [facility] Encounter Notes: All associated encounter notes This section contains the clinical notes associated to the Encounter. Date/Time Encounter Note(s) Provider Source Oct 13, 2024 03:55 PM ADDENDUM: LOCAL TITLE: Addendum STANDARD TITLE: ADDENDUM DATE OF NOTE: OCT 13, 2024@15:55:59 ENTRY DATE: OCT 13, 2024@15:56 AUTHOR: CORBY REED EXP COSIGNER: URGENCY: STATUS: COMPLETED Called who reports he is wearing his CPAP however, he is having trouble with mask. Will order a full face mask to see if this helps. Also, advised that they contact the CPAP Clinic for further evaluation or problem solving solutions if this doesn't work or help. /deisy/ CORBY REED LPN Signed: 10/13/2024 16:01 Receipt Acknowledged By: 10/13/2024 16:08 /es/ Grace Montenegro MD [facility] Primary Care --- Original Document --- 07/04/24 PRIMARY CARE CLINIC PROGRESS NOTE PB: SUBJECTIVE: MIRTHA STARKS is a 78 years old MALE. HPI: Presents to the clinic today for a periodic health maintenance visit. Last seen 2022. He reports doing well overall no complaints he feels like he is doing better on the Aricept as far as his mood and memory. He reports no seizure-like activity since the increase in his gabapentin. His constipation is controlled with daily MiraLAX does occasionally have to take a double dose. Non-VA Primary Care Provider none Specialty Services Dr. Garcia, marble installer supervisor Dr. 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 JOB/DUTIES: DEXMA OVERSEAS STATIONS/DEPLOYMENTS: [place] MAJOR ACCIDENTS OR INJURIES WHILE ON ACTIVE DUTY: none (AO) SURGICAL HX: Rt. eye- repair hole in back of eyeball Bilateral cataract Left eye macular Problem List 1) GERD - Gastro-esophageal reflux disease (SNOMED CT 404071448) 2) HTN - Hypertension (SNOMED CT 84097112) 3) Constipation (SNOMED CT 81600403) 4) HLD - Hyperlipidemia (SNOMED CT 54163568) 5) Actinic keratosis 6) Dementia 7) IBS - Irritable bowel syndrome 8) Prediabetes 9) Ptosis 10) Erectile dysfunction 11) Basal cell carcinoma of face 12) Exposure to potentially hazardous substance 13) Seizure 14) Tinea corporis Active Outpatient Medications (including Supplies): Active Outpatient Medications Status 1) DICYCLOMINE HCL 20MG TAB TAKE ONE TABLET BY MOUTH TWO ACTIVE TIMES A DAY BEFORE MEALS FOR IRRITABLE BOWEL 2) DONEPEZIL HCL 10MG TAB TAKE ONE TABLET BY MOUTH AT ACTIVE BEDTIME (JUST PRIOR TO RETIRING) 3) ENALAPRIL MALEATE 5MG TAB TAKE ONE TABLET BY MOUTH ACTIVE TWICE A DAY FOR HIGH BLOOD PRESSURE 4) FAMOTIDINE 20MG TAB TAKE ONE TABLET BY MOUTH TWICE A ACTIVE DAY TO LOWER STOMACH ACID 5) GABAPENTIN 100MG CAP TAKE TWO CAPSULES BY MOUTH THREE ACTIVE TIMES A DAY 6) KETOCONAZOLE 2% CREAM APPLY SPARINGLY TO AFFECTED ACTIVE AREA(S) TWICE A DAY (EXTERNAL USE ONLY) 7) POLYETHYLENE GLYCOL 3350 ORAL PWDR MIX AND DRINK 1 ACTIVE CAPFUL BY MOUTH ONCE A DAY TO PREVENT CONSTIPATION (MEASURE WITH CAP AND MIX IN 8 OZ OF WATER) 8) SILDENAFIL CITRATE 100MG TAB TAKE ONE TABLET BY MOUTH ACTIVE ONE HOUR PRIOR TO SEXUAL ACTIVITY FOR ERECTILE DYSFUNCTION NEEDED - LIMIT 6 DOSES PER 30 DAYS 9) SIMVASTATIN 80MG TAB TAKE ONE-HALF TABLET BY MOUTH ACTIVE EVERY EVENING TO LOWER CHOLESTEROL (REPORT ANY MUSCLE PAIN OR WEAKNESS) THIS TABLET IS TO BE CUT IN HALF FOR YOUR DOSE Active Non-VA Medications Status 1) Non-VA ASPIRIN 81MG CHEW TAB 81MG BY MOUTH ONCE A DAY ACTIVE 2) Non-VA CYANOCOBALAMIN 100MCG TAB 100MCG BY MOUTH ONCE ACTIVE A DAY 3) Non-VA MULTIVITAMIN/MINERALS CAP/TAB 1 CAP/TAB BY ACTIVE MOUTH ONCE A DAY 12 Total Medications Allergies: BENADRYL, PRILOSEC 20MG CAPSULE Review of Systems: as per HPI and Systemic: Denies fatigue, fever, chills, or weight loss CV: Denies chest pain, palpitations Pulmonary: Denies hemoptysis, Shortness of breath, dyspnea on exertion GI: Denies constipation, bloody stools, diarrhea, indigestion, or n/v Ext: Denies any swelling Neuro: Denies slurred speech or dizziness Skin: Denies abnormal lesions; denies any new rashes PSYCH: Denies SI/HI; denies nightmares OBJECTIVE: Vital Signs Temperature: 97.6 F [36.4 C] (07/04/2024 13:39) Respiratory Rate: 18 (07/04/2024 13:39) Pulse Rate: 72 (07/04/2024 13:39) Blood Pressure: 132/84 (07/04/2024 13:39) HT: 70.0 in [177.8 cm] (07/04/2024 13:39) WT: 213.5 lb [96.84 kg] (07/04/2024 13:39) BMI: 30.7 95% (07/04/2024 13:39) Physical Exam General: NAD noted, A&Ox3, pleasant, appears stated age HEENT: NCAT, TM's clear, nares and oropharynx clear Neck: Supple with normal active ROM, without any lymphadenopathy Heart: RRR, no murmur, clicks, or rub Resp: Lungs CTA bilaterally, respirations even and unlabored Ext: No clubbing, cyanosis, edema or obvious deformity Skin: Warm, pink, and dry, no rashes Neuro: Grossly intact Psych: Affect normal, answers questions appropriately throughout visit A/P: ASSESSMENT and PLAN Health Maintenance: Labs reviewed with patient and printout given to patient. Discussed preventative health to include diet and exercise as well as immunizations. 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 Seizure- like episodes - improved with increased gabapentin Exposure to potentially hazardous substance Stable. Discussed medications with patient; med rec completed. Continue current regimen as prescribed by PCP and specialists. RTC as needed if developing any new or worsening symptoms. Please notify PACT with medication changes or for orders coordination as needed if seen by a specialist in the future. Will f/u with patient once updated labs / imaging / testing received; otherwise f/u as listed below. Follow-up: 12 months with fasting labs prior to appointment and/or as needed. Discussed with patient that in the event of community imaging / testing being ordered in the future, once the imaging / testing has been completed, please notify PACT of completion at outside facility if not called with results within 1 week by a [facility] PACT member; this is due to intermittent lapses in notification of imaging completion within [facility]. All questions answered; agrees to plan of care. Follow up as listed above, annually, and as needed. Keep all appointments. Medications Reconciled. See AVS given to [place]. Time spent 30 minutes. /deisy/ Grace Montenegro MD [facility] Signed: 07/04/2024 14:07 10/13/2024 ADDENDUM STATUS: COMPLETED Review of Dr. Ramos, neurology, note from 07/25/2024 states patient was supposed to start CPAP for his obstructive sleep apnea. Looks like this was started back in April. I did not have this marked on his problem list please just check with patient and see how they are doing with his CPAP. /deisy/ Grace Montenegro MD [facility] Signed: 10/13/2024 14:45 Receipt Acknowledged By: 10/13/2024 16:01 /deisy/ CORBY URENA LPN [facility] Oct 13, 2024 02:43 PM ADDENDUM: LOCAL TITLE: Addendum STANDARD TITLE: ADDENDUM DATE OF NOTE: OCT 13, 2024@14:43:14 ENTRY DATE: OCT 13, 2024@14:43:15 AUTHOR: GRACE MONTENEGRO EXP COSIGNER: URGENCY: STATUS: COMPLETED Review of Dr. Ramos, neurology, note from 07/25/2024 states patient was supposed to start CPAP for his obstructive sleep apnea. Looks like this was started back in April. I did not have this marked on his problem list please just check with patient and see how they are doing with his CPAP. /deisy/ Grace Montenegro MD [facility] Signed: 10/13/2024 14:45 Receipt Acknowledged By: 10/13/2024 16:01 /deisy/ CORBY REED WELDING EQUIPMENT REPAIRER SUPERVISOR --- Original Document --- 07/04/24 PRIMARY CARE CLINIC PROGRESS NOTE PB: SUBJECTIVE: MIRTHA STARKS is a 78 years old MALE. HPI: Presents to the clinic today for a periodic health maintenance visit. Last seen 2022. He reports doing well overall no complaints he feels like he is doing better on the Aricept as far as his mood and memory. He reports no seizure-like activity since the increase in his gabapentin. His constipation is controlled with daily MiraLAX does occasionally have to take a double dose. Non-VA Primary Care Provider none Specialty Services Dr. Garcia, marble installer supervisor Dr. 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 JOB/DUTIES: DEXMA OVERSEAS STATIONS/DEPLOYMENTS: [place] MAJOR ACCIDENTS OR INJURIES WHILE ON ACTIVE DUTY: none (AO) SURGICAL HX: Rt. eye- repair hole in back of eyeball Bilateral cataract Left eye macular Problem List 1) GERD - Gastro-esophageal reflux disease (SNOMED CT 687926807) 2) HTN - Hypertension (SNOMED CT 87660652) 3) Constipation (SNOMED CT 31380773) 4) HLD - Hyperlipidemia (SNOMED CT 51942703) 5) Actinic keratosis 6) Dementia 7) IBS - Irritable bowel syndrome 8) Prediabetes 9) Ptosis 10) Erectile dysfunction 11) Basal cell carcinoma of face 12) Exposure to potentially hazardous substance 13) Seizure 14) Tinea corporis Active Outpatient Medications (including Supplies): Active Outpatient Medications Status 1) DICYCLOMINE HCL 20MG TAB TAKE ONE TABLET BY MOUTH TWO ACTIVE TIMES A DAY BEFORE MEALS FOR IRRITABLE BOWEL 2) DONEPEZIL HCL 10MG TAB TAKE ONE TABLET BY MOUTH AT ACTIVE BEDTIME (JUST PRIOR TO RETIRING) 3) ENALAPRIL MALEATE 5MG TAB TAKE ONE TABLET BY MOUTH ACTIVE TWICE A DAY FOR HIGH BLOOD PRESSURE 4) FAMOTIDINE 20MG TAB TAKE ONE TABLET BY MOUTH TWICE A ACTIVE DAY TO LOWER STOMACH ACID 5) GABAPENTIN 100MG CAP TAKE TWO CAPSULES BY MOUTH THREE ACTIVE TIMES A DAY 6) KETOCONAZOLE 2% CREAM APPLY SPARINGLY TO AFFECTED ACTIVE AREA(S) TWICE A DAY (EXTERNAL USE ONLY) 7) POLYETHYLENE GLYCOL 3350 ORAL PWDR MIX AND DRINK 1 ACTIVE CAPFUL BY MOUTH ONCE A DAY TO PREVENT CONSTIPATION (MEASURE WITH CAP AND MIX IN 8 OZ OF WATER) 8) SILDENAFIL CITRATE 100MG TAB TAKE ONE TABLET BY MOUTH ACTIVE ONE HOUR PRIOR TO SEXUAL ACTIVITY FOR ERECTILE DYSFUNCTION NEEDED - LIMIT 6 DOSES PER 30 DAYS 9) SIMVASTATIN 80MG TAB TAKE ONE-HALF TABLET BY MOUTH ACTIVE EVERY EVENING TO LOWER CHOLESTEROL (REPORT ANY MUSCLE PAIN OR WEAKNESS) THIS TABLET IS TO BE CUT IN HALF FOR YOUR DOSE Active Non-VA Medications Status 1) Non-VA ASPIRIN 81MG CHEW TAB 81MG BY MOUTH ONCE A DAY ACTIVE 2) Non-VA CYANOCOBALAMIN 100MCG TAB 100MCG BY MOUTH ONCE ACTIVE A DAY 3) Non-VA MULTIVITAMIN/MINERALS CAP/TAB 1 CAP/TAB BY ACTIVE MOUTH ONCE A DAY 12 Total Medications Allergies: BENADRYL, PRILOSEC 20MG CAPSULE Review of Systems: as per HPI and Systemic: Denies fatigue, fever, chills, or weight loss CV: Denies chest pain, palpitations Pulmonary: Denies hemoptysis, Shortness of breath, dyspnea on exertion GI: Denies constipation, bloody stools, diarrhea, indigestion, or n/v Ext: Denies any swelling Neuro: Denies slurred speech or dizziness Skin: Denies abnormal lesions; denies any new rashes PSYCH: Denies SI/HI; denies nightmares OBJECTIVE: Vital Signs Temperature: 97.6 F [36.4 C] (07/04/2024 13:39) Respiratory Rate: 18 (07/04/2024 13:39) Pulse Rate: 72 (07/04/2024 13:39) Blood Pressure: 132/84 (07/04/2024 13:39) HT: 70.0 in [177.8 cm] (07/04/2024 13:39) WT: 213.5 lb [96.84 kg] (07/04/2024 13:39) BMI: 30.7 95% (07/04/2024 13:39) Physical Exam General: NAD noted, A&Ox3, pleasant, appears stated age HEENT: NCAT, TM's clear, nares and oropharynx clear Neck: Supple with normal active ROM, without any lymphadenopathy Heart: RRR, no murmur, clicks, or rub Resp: Lungs CTA bilaterally, respirations even and unlabored Ext: No clubbing, cyanosis, edema or obvious deformity Skin: Warm, pink, and dry, no rashes Neuro: Grossly intact Psych: Affect normal, answers questions appropriately throughout visit A/P: ASSESSMENT and PLAN Health Maintenance: Labs reviewed with patient and printout given to patient. Discussed preventative health to include diet and exercise as well as immunizations. 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 Seizure- like episodes - improved with increased gabapentin Exposure to potentially hazardous substance Stable. Discussed medications with patient; med rec completed. Continue current regimen as prescribed by PCP and specialists. RTC as needed if developing any new or worsening symptoms. Please notify PACT with medication changes or for orders coordination as needed if seen by a specialist in the future. Will f/u with patient once updated labs / imaging / testing received; otherwise f/u as listed below. Follow-up: 12 months with fasting labs prior to appointment and/or as needed. Discussed with patient that in the event of community imaging / testing being ordered in the future, once the imaging / testing has been completed, please notify PACT of completion at outside facility if not called with results within 1 week by a [facility] PACT member; this is due to intermittent lapses in notification of imaging completion within [facility]. All questions answered; agrees to plan of care. Follow up as listed above, annually, and as needed. Keep all appointments. Medications Reconciled. See AVS given to . Time spent 30 minutes. /deisy/ Grace Montenegro MD [facility] Signed: 07/04/2024 14:07 10/13/2024 ADDENDUM STATUS: COMPLETED Called who reports he is wearing his CPAP however, he is having trouble with mask. Will order a full face mask to see if this helps. Also, advised that they contact the CPAP Clinic for further evaluation or problem solving solutions if this doesn't work or help. /deisy/ CORBY REED LPN Signed: 10/13/2024 16:01 Receipt Acknowledged By: * AWAITING SIGNATURE * GRACE MONTENEGRO TAMMY [facility] CB Jul 04, 2024 01:41 PM PRIMARY CARE PROGR ESS NOTE: LOCAL TITLE: PRIMARY CARE CLINIC PROGRESS NOTE PB STANDARD TITLE: PRIMARY CARE PROGRESS NOTE DATE OF NOTE: JUL 04, 2024@13:41 ENTRY DATE: JUL 04, 2024@13:41:39 AUTHOR: GRACE MONTENEGRO EXP COSIGNER: URGENCY: STATUS: COMPLETED PRIMARY CARE CLINIC PROGRESS NOTE PB Has ADDENDA SUBJECTIVE: BRANSCUM,CORBIE TYREE is a 78 years old MALE. HPI: Presents to the clinic today for a periodic health maintenance visit. Last seen 2022. He reports doing well overall no complaints he feels like he is doing better on the Aricept as far as his mood and memory. He reports no seizure-like activity since the increase in his gabapentin. His constipation is controlled with daily MiraLAX does occasionally have to take a double dose. Non-VA Primary Care Provider none Specialty Services Dr. Garcia, marble installer supervisor Dr. 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 eye- repair hole in back of eyeball Bilateral cataract Left eye macular Problem List 1) GERD - Gastro-esophageal reflux disease (SNOMED CT 416190544) 2) HTN - Hypertension (SNOMED CT 57676892) 3) Constipation (SNOMED CT 99400038) 4) HLD - Hyperlipidemia (SNOMED CT 58888009) 5) Actinic keratosis 6) Dementia 7) IBS - Irritable bowel syndrome 8) Prediabetes 9) Ptosis 10) Erectile dysfunction 11) Basal cell carcinoma of face 12) Exposure to potentially hazardous substance 13) Seizure 14) Tinea corporis Active Outpatient Medications (including Supplies): Active Outpatient Medications Status 1) DICYCLOMINE HCL 20MG TAB TAKE ONE TABLET BY MOUTH TWO ACTIVE TIMES A DAY BEFORE MEALS FOR IRRITABLE BOWEL 2) DONEPEZIL HCL 10MG TAB TAKE ONE TABLET BY MOUTH AT ACTIVE BEDTIME (JUST PRIOR TO RETIRING) 3) ENALAPRIL MALEATE 5MG TAB TAKE ONE TABLET BY MOUTH ACTIVE TWICE A DAY FOR HIGH BLOOD PRESSURE 4) FAMOTIDINE 20MG TAB TAKE ONE TABLET BY MOUTH TWICE A ACTIVE DAY TO LOWER STOMACH ACID 5) GABAPENTIN 100MG CAP TAKE TWO CAPSULES BY MOUTH THREE ACTIVE TIMES A DAY 6) KETOCONAZOLE 2% CREAM APPLY SPARINGLY TO AFFECTED ACTIVE AREA(S) TWICE A DAY (EXTERNAL USE ONLY) 7) POLYETHYLENE GLYCOL 3350 ORAL PWDR MIX AND DRINK 1 ACTIVE CAPFUL BY MOUTH ONCE A DAY TO PREVENT CONSTIPATION (MEASURE WITH CAP AND MIX IN 8 OZ OF WATER) 8) SILDENAFIL CITRATE 100MG TAB TAKE ONE TABLET BY MOUTH ACTIVE ONE HOUR PRIOR TO SEXUAL ACTIVITY FOR ERECTILE DYSFUNCTION NEEDED - LIMIT 6 DOSES PER 30 DAYS 9) SIMVASTATIN 80MG TAB TAKE ONE-HALF TABLET BY MOUTH ACTIVE EVERY EVENING TO LOWER CHOLESTEROL (REPORT ANY MUSCLE PAIN OR WEAKNESS) THIS TABLET IS TO BE CUT IN HALF FOR YOUR DOSE Active Non-VA Medications Status 1) Non-VA ASPIRIN 81MG CHEW TAB 81MG BY MOUTH ONCE A DAY ACTIVE 2) Non-VA CYANOCOBALAMIN 100MCG TAB 100MCG BY MOUTH ONCE ACTIVE A DAY 3) Non-VA MULTIVITAMIN/MINERALS CAP/TAB 1 CAP/TAB BY ACTIVE MOUTH ONCE A DAY 12 Total Medications Allergies: BENADRYL, PRILOSEC 20MG CAPSULE Review of Systems: as per HPI and Systemic: Denies fatigue, fever, chills, or weight loss CV: Denies chest pain, palpitations Pulmonary: Denies hemoptysis, Shortness of breath, dyspnea on exertion GI: Denies constipation, bloody stools, diarrhea, indigestion, or n/v Ext: Denies any swelling Neuro: Denies slurred speech or dizziness Skin: Denies abnormal lesions; denies any new rashes PSYCH: Denies SI/HI; denies nightmares OBJECTIVE: Vital Signs Temperature: 97.6 F [36.4 C] (07/04/2024 13:39) Respiratory Rate: 18 (07/04/2024 13:39) Pulse Rate: 72 (07/04/2024 13:39) Blood Pressure: 132/84 (07/04/2024 13:39) HT: 70.0 in [177.8 cm] (07/04/2024 13:39) WT: 213.5 lb [96.84 kg] (07/04/2024 13:39) BMI: 30.7 95% (07/04/2024 13:39) Physical Exam General: NAD noted, A&Ox3, pleasant, appears stated age HEENT: NCAT, TM's clear, nares and oropharynx clear Neck: Supple with normal active ROM, without any lymphadenopathy Heart: RRR, no murmur, clicks, or rub Resp: Lungs CTA bilaterally, respirations even and unlabored Ext: No clubbing, cyanosis, edema or obvious deformity Skin: Warm, pink, and dry, no rashes Neuro: Grossly intact Psych: Affect normal, answers questions appropriately throughout visit A/P: ASSESSMENT and PLAN Health Maintenance: Labs reviewed with patient and printout given to patient. Discussed preventative health to include diet and exercise as well as immunizations. 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 Seizure- like episodes - improved with increased gabapentin Exposure to potentially hazardous substance Stable. Discussed medications with patient; med rec completed. Continue current regimen as prescribed by PCP and specialists. RTC as needed if developing any new or worsening symptoms. Please notify PACT with medication changes or for orders coordination as needed if seen by a specialist in the future. Will f/u with patient once updated labs / imaging / testing received; otherwise f/u as listed below. Follow-up: 12 months with fasting labs prior to appointment and/or as needed. Discussed with patient that in the event of community imaging / testing being ordered in the future, once the imaging / testing has been completed, please notify PACT of completion at outside facility if not called with results within 1 week by a [facility] PACT member; this is due to intermittent lapses in notification of imaging completion within [facility]. All questions answered; agrees to plan of care. Follow up as listed above, annually, and as needed. Keep all appointments. Medications Reconciled. See AVS given to Oden. Time spent 30 minutes. /deisy/ Grace Montenegro MD [facility] Signed: 07/04/2024 14:07 10/13/2024 ADDENDUM STATUS: COMPLETED Review of Dr. Ramos, neurology, note from 07/25/2024 states patient was supposed to start CPAP for his obstructive sleep apnea. Looks like this was started back in April. I did not have this marked on his problem list please just check with patient and see how they are doing with his CPAP. /deisy/ Grace Montenegro MD [facility] Signed: 10/13/2024 14:45 Receipt Acknowledged By: 10/13/2024 16:01 /deisy/ CORBY REED LPN 10/13/2024 ADDENDUM STATUS: COMPLETED Called who reports he is wearing his CPAP however, he is having trouble with mask. Will order a full face mask to see if this helps. Also, advised that they contact the CPAP Clinic for further evaluation or problem solving solutions if this doesn't work or help. /john paul REED LPN Signed: 10/13/2024 16:01 Receipt Acknowledged By: * AWAITING SIGNATURE * GRACE MONTENEGRO [facility] Jul 04, 2024 01:23 PM PRIMARY CARE NURSI NG NOTE: LOCAL TITLE: PRIMARY CARE NURSING PROGRESS NOTE (TEXT) NURSING P STANDARD TITLE: PRIMARY CARE NURSING NOTE DATE OF NOTE: JUL 04, 2024@13:23 ENTRY DATE: JUL 04, 2024@13:23:51 AUTHOR: RENETTA MEDEROS EXP COSIGNER: URGENCY: STATUS: COMPLETED Established Patient MIRTHA STARKS IS A 78 YEAR OLD MALE BEING SEEN IN CLINIC JUL 04, 2024. == == REASON FOR VISIT: Oden here for yearly health exam, still trying to get used to cpap Are you receiving care any where other than the [facility]? No HEALTH AND SURGICAL HISTORY: Does patient report using home oxygen? No CURRENT ACTIVE MEDICATIONS FOR REVIEW: Allergies/ADRs (Tool #5) FACILITY ALLERGY/ADR -------- No Remote Allergy/ADR Data available for this patient [facility] BENADRYL [facility] PRILOSEC 20MG CAPSULE Med. Reconciliation (Tool #1) INCLUDED IN THIS LIST: Alphabetical list of active outpatient prescriptions dispensed from this [place] (local) and dispensed from another [place] or [facility] facility (remote) as well as inpatient orders (local pending and active), local clinic medications, locally documented non-VA medications, and local prescriptions that have or been discontinued in the past 90 days. Non-VA Meds Last Documented On: Jan 03, 2019 NOTE The display of VA prescriptions dispensed from another [place] or [facility] facility (remote) is limited to active outpatient prescription entries matched to National Drug File at the originating site and may not include some items such as investigational drugs, compounds, etc. NOT INCLUDED IN THIS LIST: Medications self-entered by the patient into personal health records (i.e. [facility]) are NOT included in this list. Non-VA medications documented outside this [place], remote inpatient orders (regardless of status) and remote clinic medications are NOT included in this list. The patient and provider must always discuss medications the patient is taking, regardless of where the medication was dispensed or obtained. Non-VA ASPIRIN 81MG CHEW TAB CHEW AND SWALLOW ONE TABLET BY MOUTH ONCE A DAY Patient wants to buy from Non-VA pharmacy. Medication prescribed by Non-VA provider. Non-VA CYANOCOBALAMIN 100MCG TAB TAKE ONE TABLET BY MOUTH ONCE A DAY Patient wants to buy from Non-VA pharmacy. OUTPT DICYCLOMINE HCL 20MG TAB (Status = Active) TAKE ONE TABLET BY MOUTH TWO TIMES A DAY BEFORE MEALS FOR IRRITABLE BOWEL Rx# [id number] Last Released: 06/07/24 Qty/Days Supply: 180/90 Rx Expiration Date: 09/06/24 Refills Remainin OUTPT DONEPEZIL HCL 10MG TAB (Status = Active) TAKE ONE TABLET BY MOUTH AT BEDTIME (JUST PRIOR TO RETIRING) Rx# [id number] Last Released: 05/04/24 Qty/Days Supply: 90/ Rx Expiration Date: 08/05/24 Refills Remainin OUTPT ENALAPRIL MALEATE 5MG TAB (Status = Active) TAKE ONE TABLET BY MOUTH TWICE A DAY FOR HIGH BLOOD PRESSURE Rx# [id number] Last Released: 06/07/24 Qty/Days Supply: 180/90 Rx Expiration Date: 11/05/24 Refills Remainin Indication: FOR HIGH BLOOD PRESSURE OUTPT FAMOTIDINE 20MG TAB (Status = Discontinued) TAKE ONE TABLET BY MOUTH TWICE A DAY TO LOWER STOMACH ACID Rx# [id number] Last Released: 04/11/24 Qty/Days Supply: 180/90 Rx Expiration Date: 10/05/24 Refills Remainin OUTPT FAMOTIDINE 20MG TAB (Status = Active) TAKE ONE TABLET BY MOUTH TWICE A DAY TO LOWER STOMACH ACID Rx# [id number] Last Released: 07/03/24 Qty/Days Supply: 180/90 Rx Expiration Date: 06/07/25 Refills Remainin OUTPT FISH OIL 1000MG (500MG DHA/EPA) CAP (Status = Discontinued) TAKE TWO CAPSULES BY MOUTH TWICE A DAY Rx# [id number] Last Released: 04/11/24 Qty/Days Supply: 400/90 Rx Expiration Date: 09/06/24 Refills Remainin OUTPT GABAPENTIN 100MG CAP (Status = Active) TAKE TWO CAPSULES BY MOUTH THREE TIMES A DAY Rx# [id number] Last Released: 05/04/24 Qty/Days Supply: 180/30 Rx Expiration Date: 01/25/25 Refills Remainin OUTPT KETOCONAZOLE 2% CREAM (Status = Active) APPLY SPARINGLY TO AFFECTED AREA(S) TWICE A DAY (EXTERNAL USE ONLY) Rx# [id number] Last Released: 04/17/24 Qty/Days Supply: 60 Rx Expiration Date: 03/02/25 Refills Remainin Non-VA MULTIVITAMIN/MINERALS CAP/TAB TAKE 1 CAP/TAB BY MOUTH ONCE A DAY Patient wants to buy from Non-VA pharmacy. Medication prescribed by Non-VA provider. OUTPT POLYETHYLENE GLYCOL 3350 ORAL PWDR (Status = Active) MIX AND DRINK 1 CAPFUL BY MOUTH ONCE A DAY TO PREVENT CONSTIPATION (MEASURE WITH CAP AND MIX IN 8 OZ OF WATER) Rx# [id number] Last Released: 06/22/24 Qty/Days Supply: 510 Rx Expiration Date: 08/05/24 Refills Remainin OUTPT SILDENAFIL CITRATE 100MG TAB (Status = Active) TAKE ONE TABLET BY MOUTH ONE HOUR PRIOR TO SEXUAL ACTIVITY FOR ERECTILE DYSFUNCTION NEEDED - LIMIT 6 DOSES PER 30 DAYS Rx# [id number] Last Released: 04/07/24 Qty/Days Supply: Rx Expiration Date: 07/13/24 Refills Remainin Indication: FOR ERECTILE DYSFUNCTION OUTPT SIMVASTATIN 80MG TAB (Status = Active) TAKE ONE-HALF TABLET BY MOUTH EVERY EVENING TO LOWER CHOLESTEROL (REPORT ANY MUSCLE PAIN OR WEAKNESS) THIS TABLET IS TO BE CUT IN HALF FOR YOUR DOSE Rx# [id number] Last Released: 06/07/24 Qty/Days Supply: Rx Expiration Date: 09/06/24 Refills Remainin SUPPLIES PHARMACY TERMS AND POSSIBLE PATIENT ACTIONS INPT = [place] inpatient order IV = VA intravenous medication OUTPT = [place] outpatient prescription PHARMACY POSSIBLE PATIENT TERMS EXPLANATION ACTIONS -------- ----- ACTIVE A prescription that can be If you have refills, filled at the local [place] pharmacy. you may request a refill of this prescription from your VA pharmacy. CLINIC A medication you received during If you have questions a visit to a [place] clinic or about this medication emergency department. contact your [place] healthcare team. DISCONTINUED A prescription your provider has Contact your [place] stopped. It is no longer healthcare team if you available to be sent to you or need more of this picked up at the [place] pharmacy medication. window. A prescription which is too old Contact your VA to fill. This does not refer to healthcare team if you the expiration date of the need more of this medication in the container. medication. NON-VA A medication that came from If this medication someplace other than a VA information is pharmacy. This may be a incorrect or out of prescription from either the VA date, please tell your or non VA providers that was VA healthcare team. filled outside the VA. Or, it may be an [id number] (OTC), herbal, dietary supplements or sample medication. ON HOLD An active prescription that will Contact your VA not be filled until pharmacy pharmacy when you need resolves the issue. more of this medication. PARKED An active prescription that will Contact your VA not be filled until the patient pharmacy when you need requests it. this medication. PENDING This prescription order has been If you have been sent to the pharmacy for review instructed to start and is not ready yet. this medication now, contact your VA pharmacy. SUSPENDED An active prescription that is Contact your [place] not scheduled to be filled yet. pharmacy if you need You should receive it before this medication now. you run out. Patient reports taking medications as ordered. IS PATIENT TAKING ANY OVER THE COUNTER MEDICATIONS, SUCH VITAMINS OR HERBAL SUPPLEMENTS, INCLUDING ANY MEDICATIONS PRESCRIBED BY ANOTHER PHYSICIAN? No ALLERGIES/ADVERSE REACTIONS: BENADRYL, PRILOSEC 20MG CAPSULE Does patient have any new allergies to report since last visit? NO VITALS: TEMPERATURE: 97.6 F [36.4 C] (07/08/2023:) BP: 127/82 (07/08/2023:) RESP: 17 (07/08/2023:) PULSE: 63 (07/08/2023:) HT: 70 in [177.8 cm] (07/08/2023) WT: 203.4 lb [92.26 kg] (07/08/2023) BMI: 29.2 PAIN ASSESSMENT: (Most Recent Pain Score in Vitals Package: 0 (07/08/2023:) ) The patient indicated that they and their close contacts have not traveled outside of the [place] in the past 21 days. The patient reports the following symptoms: No symptoms present The patient is not immunocompromised. The patient does not report having a history of Multi Drug Resistant Organism (MDRO) within the last five years. The patient does not report having been exposed to measles, chickenpox, or zoster in last 30 days. Patient reports no pain at this visit. Pain Score = 0. STRESS: Thank you for your service. Now let us serve you. At the [facility], we strive to provide you with exceptional health care that improves your health and well-being. Are you feeling sad, empty, or depressed? No Do you need to talk about things in your life that worry you or cause you stress? No Do you need to talk about personal problems, family problems, alcohol use, drug use, or mental or emotional illness? No SUICIDE SCREENING: The patient was asked, Over the past two weeks, how often have you been bothered by thoughts that you would be better off or of hurting yourself in some way? Not At All SPIRITUAL ASSESSMENT: Are there baptism practices or spiritual concerns you want the ballistics expert forensic, your physician, and other health care team members to immediately know about? No Patient advised to call the clinic for any concerns, questions, or symptoms. Patient and/or caregiver verbalized understanding of plan of care. Suicide Screen: C-SSRS Screening Padroni-Suicide Severity Rating Scale (C-SSRS Screener) 1. Over the past month, have you wished you were or wished you could go to sleep and not wake up? No 2. Over the past month, have you had any actual thoughts of killing yourself? No 3. Over the past month, have you been thinking about how you might do this? Response not required due to responses to other questions. 4. Over the past month, have you had these thoughts and had some intention of acting on them? Response not required due to responses to other questions. 5. Over the past month, have you started to work out or worked out the details of how to kill yourself? Response not required due to responses to other questions. 6. If yes, at any time in the past month did you intend to carry out this plan? Response not required due to responses to other questions. 7. In your lifetime, have you ever done anything, started to do anything, or prepared to do anything to end your life (for example, collected pills, obtained a gun, gave away valuables, went to the roof but didn't jump)? No 8. If YES, was this within the past 3 months? Response not required due to responses to other questions. PTSD Screening: PC-PTSD-5 A PTSD screening test (PC-PTSD-5) was negative (score=1). IN THE PAST MONTH, have you ever had any experience that was so frightening, horrible or traumatic. For example: A serious accident or fire a physical or sexual assault or abuse An earthquake or flood A war Seeing someone be killed or seriously injured Having a loved one through homicide or suicide 1. Have you ever experienced this kind of event? YES 2. Had nightmares about the event(s) or thought about the event(s) when you did not want to? NO 3. Tried hard not to think about the event(s) or went out of your way to avoid situations that reminded you of the event(s)? YES 4. Been constantly on guard, watchful, or easily startled? NO 5. [place] numb or detached from people, activities, or your surroundings? NO 6. [place] guilty or unable to stop blaming yourself or others for the event(s) or any problems the event(s) may have caused? NO Dementia Safety Assessment: Is there a gun in your home (place where you live)? NO Do you drive? YES Have you been involved in any motor vehicle accidents or mishaps (such as near-misses, traffic tickets, getting lost while driving etc) in the past year? NO Frail/Elderly Screen: ADL Screen - Brown Index of Humphreys in Activities of Daily Living Bathing: (3 Points) Receives no assistance (gets in and out of tub by self, if tub is usual means of bathing) Dressing: (3 Points) Gets clothes and gets completely dressed without assistance. Toileting: (3 Points) Goes to toilet room , cleans self, and arranges clothes without assistance (may use object for support such as cane, walker, or wheelchair, and may manage own night bedpan or commode, emptying same next morning) Transferring: (3 Points) Moves in and out of bed and in and out of chair without assistance (may be using object for support, such as cane or walker) Continence: (3 Points) Controls urination and bowel movement completely by self Feeding: (3 Points) Feeds self without assistance Total Score: 18 Points 18 = High (patient independent) 6 = Low (patient very dependent) IADL Screen - [place] Instrumental Activities of Daily Living Scale Ability to use telephone: (1 point) Dials a few well-known numbers. Shopping: (1 point) Takes care of all shopping needs independently. Food preparation: (1 point) Plans, prepares, and serves adequate meals independently. Housekeeping: (1 point) Maintains house alone with occasional assistance (heavy work). Laundry: (1 point) Does personal laundry completely. Mode of transportation: (1 point) Travels independently on public transportation or drives own car. Responsibility for own medications: (1 point) Is responsible for taking medications in correct dosages at correct times. Ability to handle finances: (1 point) Manages financial matters independently (budgets, writes checks, pays rent and bills, goes to bank); collects and keeps track of income. Total score: 8 points 8 = High function, independent 0 = Low function, dependent Falls Screen: One fall with no injury within the last 12 months. Incontinence Screen: No incontinence. Sexual Orientation: The patient thinks of their sexual orientation as: Straight or Heterosexual Alcohol Use Screen (AUDIT-C): Alcohol Screen: SCREEN FOR ALCOHOL (AUDIT-C) An alcohol screening test (AUDIT-C) was negative (score=0). 1. How often did you have a drink containing alcohol in the past year? Consider a drink to be a 12 ounce can or bottle of regular beer, 8 ounces of malt liquor, a 5 ounce glass of table wine, or a 1.5 ounce shot of liquor (like scotch, gin, or vodka). Never 2. How many drinks containing alcohol did you have on a typical day when you were drinking in the past year? Response not required due to responses to other questions. 3. How often did you have six or more drinks on one occasion in the past year? Response not required due to responses to other questions. Depression Screening: Perform PHQ-2 A PHQ-2 screen was performed. The score was 1 which is a negative screen for depression. Over the past two weeks, how often have you been bothered by the following problems? 1. Little interest or pleasure in doing things Several days 2. Feeling down, depressed, or hopeless Not at all Tobacco Use Screening: The patient has never used tobacco. Homelessness/Food Insecurity Screen: In the past 2 months, have you been living in stable housing that you own, rent, or stay in as part of a household? Yes - Living in stable housing. Are you worried or concerned that in the next 2 months you may NOT have stable housing that you own, rent, or stay in as part of a household? No - Not worried about housing near future The [place]den reports the following: Within the past 12 months, you worried whether your food would run out before you got money to buy more. Never true Within the past 12 months, the food you bought just didn't last and you didn't have money to get more. Never true Advanced Directive Screen/Core Checker: ADVANCE DIRECTIVE SCREENING: I asked if the patient has an advance directive, and determined that: Patient has an Advance Directive. Patient does not wish to make any changes to the Advance Directive at this time. ADVANCE DIRECTIVE NOTIFICATION I did not provide the patient with written notification about advance directives because [place] has AD Level of understanding: Pain Assessment: - PAIN ASSESSMENT: .. Patient reports no pain at this visit. Pain Score = 0. Patient's self identified pain goal: 0 Weight Control/Nutrition Counseling: * The patient received the following counseling at this encounter: [facility] - PHP MAP: PERSONAL HEALTH PLAN INVENTORY & MAP 's Response: fishing RHS Screen: RHS Screen Environmental Check Screening was not completed at this time due to: Another adult present /es/ MARLENI SERNA [facility] Signed: 07/04/2024 13:55 RENETTA MEDEROS [facility]
--- OUTSIDE RECORDS SUMMARY | 2024-11-02 09:30 | XMS_ITS | Encounter Summary ---
Author Name [facility] [place] Organization [facility] [place] Address [address] [place] [address] Care Team Providers Care Housekeeping Assistant Name Role Phone GRACE MONTENEGRO Primary Care [...] PART A Dec 03, 2011 PART A [id number] [phone] MIRTHA STARKS PATIENT MEDICARE (WNR) MEDICARE (M) PART A Dec 03, 2011 PART A [id number] MIRTHA STARKS PATIENT Selected Encounter This section includes the information on record at [place] for the Encounter. Date/Time Encounter Type Encounter Description Reason Provider Source Nov 02, 2024 02:30 PM OFFICE O/P EST MOD 30 MIN PRIMARY CARE/MEDICINE ICD-10-CM A88.1 Epidemic vertigo GRACE MONTENEGRO [facility] Encounter Template Text not used by [facility] Assessments - Encounter Diagnoses This section includes the primary and secondary diagnoses documented for the Encounter. Date/Time Primary/Secondary Diagnosis Diagnosis Name Provider Source Nov 03, 2024 10:26 AM PRIMARY Epidemic vertigo GRACE MONTENEGROMID [facility] Nov 03, 2024 10:26 AM SECONDARY Obstructive sleep apnea (adult) (pediatric) GRACE MONTENEGOR [facility] Nov 03, 2024 10:26 AM SECONDARY Syncope and collapse GRACE MONTENEGRO MA[facility] Nov 03, 2024 10:26 AM SECONDARY Unsp dementia, unsp severity, without beh/psych/mood/anx GRACE MONTENEGRO [facility] Nov 03, 2024 10:26 AM SECONDARY Unspecified convulsions MONI,TAMMY [facility] Plan of Treatment: Future Appointments (+ 6 months) and Future Tests (+/- 45 days) The Plan of Treatment section includes future care activities for the patient from all [place] [facility]. This section includes future appointments and future orders which are active, pending or scheduled. Future Appointments This section includes appointments that were scheduled to occur 6 months from the date of the Encounter, up to a maximum of 20 appointments. The data comes from all [place] treatment facilities. Appointment Date/Time Appointment Type Appointme nt Facility Name Nov 09, 2024 09:30 AM AMBULATORY - MEDICINE [facility] Nov 15, 2024 01:00 PM AMBULATORY - MEDICINE [facility] Nov 28, 2024 09:30 AM AMBULATORY - MEDICINE [facility] Nov 28, 2024 01:45 PM AMBULATORY - MEDICINE [facility] Nov 28, 2024 03:00 PM AMBULATORY - MEDICINE [facility] Nov 30, 2024 08:00 AM AMBULATORY - MEDICINE [facility] Dec 20, 2024 09:45 AM AMBULATORY - MEDICINE [facility] Dec 27, 2024 09:30 AM AMBULATORY - MEDICINE [facility] Dec 27, 2024 09:32 AM AMBULATORY - MEDICINE [facility] Mar 23, 2025 10:30 AM AMBULATORY - MEDICINE [facility] Vital Signs: All taken on the encounter date This section contains inpatient and outpatient Vital Signs collected on the date of the Encounter. Date/Time Temperature Pulse Blood Pressure Respiratory Rate SP02 Pain Height Weight Body Mass Index Source Nov 02, 2024 02:23 PM 97.8 84 126/76 22 96 0 220 32 [facility] Social History: Smoking Status (Most current) and Tobacco Use (All prior to encounter date) This section includes the most current, and the historical, smoking and tobacco- related health factors from the [place] facility where the Encounter took place. Current Smoking Status This section includes the most current smoking, or tobacco-related health factor, from the [place] facility where the Encounter took place. Date/Time Current Smoking Status Comment Facil ity Jul 04, 2024 01:30 PM VA-TOBACCO NEVER USED [facility] Tobacco Use History This section includes a history of the smoking, or tobacco-related health factors, that were collected on or before the date of the Encounter. The data comes from the [place] facility where the Encounter took place. Date/Time Smoking Status/Tobacco Use Comment F acility Jul 08, 2023 09:00 AM VA-TOBACCO NEVER USED [facility] Jul 14, 2022 09:00 AM VA-TOBACCO NEVER USED [facility] Aug 13, 2020 09:00 AM VA-TOBACCO NEVER USED [facility] Aug 22, 2019 08:33 AM VA-TOBACCO NEVER USED [facility] Jan 09, 2010 01:44 PM LIFETIME NON-USER OF TOBACCO [facility] Advance Directives: All historical and current Section Date Range: From patient's date of to the date document was created. This section includes ALL of a patient's completed or amended [place] Advance and Rescinded Directives. The entries below indicate that a directive exists for the patient, but an actual copy is not included with this document. The data comes from all [place] facilities. Date Advance Directives Provider Source Nov 07, 2012 ADVANCE DIRECTIVE KIAN MORLEYU FF [facility] May 05, 2011 ADVANCE DIRECTIVE MOHAMUD BRISENO [facility] Apr 13, 2011 ADVANCE DIRECTIVE DISCUSSION [facility] Radiology Reports: +/- 30 days of the encounter Radiology Reports For cases when an order for radiology services may have been completed prior to the date of the Encounter, the report list includes the Radiology Reports that were completed up to 30 days before dateof the Encounter. For cases when an order for radiology services may have been completed after the date of the Encounter, the report list also includes the Radiology Reports that were completed up to30 days after date of the Encounter. The data comes from all [place] treatment facilities. Date/Time Radiology Report Provider Source Nov 15, 2024 08:32 AM MRI BRAIN [facility] NT: MIRTHA STARKS [id number] -1945 M Exm Date: NOV 15, 2024@08:32 Req Phys: MONI,TAMMY Pat Loc: OUTSIDE PB-MRI (Req'g Loc) Img Loc: OUTSIDE PB-MRI Service: Unknown (Case [id number] COMPLETE) MRI BRAIN [facility] CONT (MRI Detailed) CPT:62292 Reason for Study: Exam imported from outside Clinical History: Original Data for Imported Study Patient Name: MIRTHA STARKS Date: 1945 Sex: M Study Date: 11/15/24 Study Time: 08:32:49 Study Description: MR head wo/w con 62275 Referring Physician: UNKNOWN, UNKNOWN Series 1: 1 GA file, description: FUJI Presentation State - SNAPSHOT Series 2: 15 MR files, description: 3 PL LOC Series 3: 86 MR files, description: HOPE SCAN Series 4: 25 MR files, description: SAG T1 Series 5: 31 MR files, description: COR T2 Series 6: 27 MR files, description: AX T2 Series 7: 27 MR files, description: AX T2 FLAIR Series 8: 54 MR files, description: AX DIFF Series 9: 27 MR files, description: AX SWI Series 10: 27 MR files, description: Apparent Diffusion Coefficient (mm2/s) Series 11: 27 MR files, description: AX T1 Series 12: 31 MR files, description: COR T1+C Series 13: 27 MR files, description: AX T1+C Series 14: 176 MR files, description: FSPGR 3D +C (THIN) Series 15: 56 MR files, description: SAG FSPGR Series 16: 64 MR files, description: COR FSPGR Report Status: Electronically Filed Date Reported: DEC 18, 2024 Report: No report text Impression: No impression text VERIFIED BY: / *ELECTRONICALLY FILED* CHAITANYA PEREYRA [facility] Encounter Notes: All associated encounter notes This section contains the clinical notes associated to the Encounter. Date/Time Encounter Note(s) Provider Source Dec 15, 2024 02:33 PM ADDENDUM: LOCAL TITLE: Addendum STANDARD TITLE: ADDENDUM DATE OF NOTE: DEC 15, 2024@14:33:11 ENTRY DATE: DEC 15, 2024@14:33:12 AUTHOR: CORBY REED COSIGNER: URGENCY: STATUS: COMPLETED Called , spoke with and his , reviewed test results. [place] and report his BP is still allover the place . reviewed his BP log with me and reports his BP Readings: from 90's/50's to 160's/90's at times. Offered the home telehealth Blood pressure monitoring program for and they would like this. Verified that he is taking his medication as directed. They are not happy with his current Neurologist, Dr. Ramos and are requesting to see another Neurologist in [place]. Also, report that is still passing out at least once a week. Advised that they report to the ED when that happens, especially if he hits his head. She voiced understanding. Alerting provider. /deisy/ CORBY REED LPN Signed: 12/15/2024 14:44 Receipt Acknowledged By: 12/15/2024 14:57 /deisy/ Grace Montenegro MD [facility] Primary Care --- Original Document --- 11/02/24 PRIMARY CARE CLINIC PROGRESS NOTE PB: CC: ER follow-up for dizziness HPI: Patient reports starting about 3 weeks ago he was playing mild spinning vertigo type symptoms he thought it was related to his ears he started washing out his ears with alternating alcohol and peroxide drops which actually made his vertigo worse. He came in and saw the nurse about a week ago was instructed on Marcelle maneuvers and to follow-up with any worsening of symptoms. He has now had 3 episodes where at the same time he feels heart palpitations and has had syncope last time was yesterday. He went to the emergency room was diagnosed with this dizziness and prescribed meclizine. Patient did have a MRI on his head back in December that did show some cortical atrophy and demyelination was seen by Dr. Ramos thought to be having some seizure episodes that were resolved placing on gabapentin. Non-VA Primary Care Provider none Specialty Services Dr. Garcia, sailmaker Dr. 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 JOB/DUTIES: [employer] OVERSEAS STATIONS/DEPLOYMENTS: [employer] MAJOR ACCIDENTS OR INJURIES WHILE ON ACTIVE DUTY: none (AO) SURGICAL HX: Rt. eye- repair hole in back of eyeball Bilateral cataract Left eye macular Problem List: 1) GERD - Gastro-esophageal reflux disease (SNOMED CT 453719527) 2) HTN - Hypertension (SNOMED CT 23086116) 3) Constipation (SNOMED CT 49128738) 4) HLD - Hyperlipidemia (SNOMED CT 32546229) 5) Actinic keratosis 6) Dementia 7) IBS - Irritable bowel syndrome 8) Prediabetes 9) Ptosis 10) Erectile dysfunction 11) Basal cell carcinoma of face 12) Exposure to potentially hazardous substance 13) Seizure 14) Tinea corporis 15) Obstructive sleep apnea Active Outpatient Medications (including Supplies): Active Outpatient Medications Status 1) DICYCLOMINE HCL 20MG TAB TAKE ONE TABLET BY MOUTH TWO TIMES ACTIVE A DAY BEFORE MEALS FOR IRRITABLE BOWEL 2) DONEPEZIL HCL 10MG TAB TAKE ONE TABLET BY MOUTH AT BEDTIME ACTIVE (JUST PRIOR TO RETIRING) 3) ENALAPRIL MALEATE 5MG TAB TAKE ONE TABLET BY MOUTH TWICE A ACTIVE DAY Indication: FOR HIGH BLOOD PRESSURE 4) FAMOTIDINE 20MG TAB TAKE ONE TABLET BY MOUTH TWICE A DAY TO ACTIVE LOWER STOMACH ACID 5) GABAPENTIN 100MG CAP TAKE TWO CAPSULES BY MOUTH THREE TIMES ACTIVE A DAY 6) KETOCONAZOLE 2% CREAM APPLY SPARINGLY TO AFFECTED AREA(S) ACTIVE TWICE A DAY (EXTERNAL USE ONLY) 7) MECLIZINE HCL 25MG CHEW TAB CHEW AND SWALLOW ONE TABLET BY ACTIVE MOUTH EVERY 6 HOURS NEEDED CHEWABLE TABLETS MAY BE CHEWED OR SWALLOWED WHOLE. MAY CAUSE DROWSINESS. Indication: FOR VERTIGO 8) POLYETHYLENE GLYCOL 3350 ORAL PWDR MIX AND DRINK 1 CAPFUL BY ACTIVE MOUTH ONCE A DAY TO PREVENT CONSTIPATION (MEASURE WITH CAP AND MIX IN 8 OZ OF WATER) 9) SIMVASTATIN 80MG TAB TAKE ONE-HALF TABLET BY MOUTH EVERY ACTIVE EVENING TO LOWER CHOLESTEROL (REPORT ANY MUSCLE PAIN OR WEAKNESS) THIS TABLET IS TO BE CUT IN HALF FOR YOUR DOSE Active Non-VA Medications Status 1) Non-VA ASPIRIN 81MG CHEW TAB 81MG BY MOUTH ONCE A DAY ACTIVE 2) Non-VA CYANOCOBALAMIN 100MCG TAB 100MCG BY MOUTH ONCE A DAY ACTIVE 3) Non-VA MULTIVITAMIN/MINERALS CAP/TAB 1 CAP/TAB BY MOUTH ONCE ACTIVE A DAY 12 Total Medications OBJECTIVE: Vital Signs Temperature: 97.8 F [36.6 C] (11/02/2024 14:23) Respiratory Rate: 22 (11/02/2024 14:23) Pulse Rate: 84 (11/02/2024 14:23) Blood Pressure: 126/76 (11/02/2024 14:23) HT: 70.0 in [177.8 cm] (07/04/2024 13:39) WT: 220 lb [99.79 kg] (11/02/2024 14:23) BMI: 31.6 96% (11/02/2024 14:23) Physical Exam General: NAD noted, A&Ox3, pleasant, appears stated age HEENT: NCAT, TM's clear; but with a dull, light and fluid behind the TM, nares and oropharynx clear; no nystagmus Neck: Supple with normal active ROM, without any lymphadenopathy Heart: RRR, no murmur, clicks, or rub Resp: Lungs CTA bilaterally, respirations even and unlabored Abdomen: Soft, non-distended, non-tender Ext: No clubbing, cyanosis, edema or obvious deformity Neuro: Grossly intact; Psych: Affect normal, answers questions appropriately throughout visit Assessment/Plan: 1)New onset of vertigo with 3 syncopal episodes I am going to get patient started on an event monitor sitting up for repeat MRI of his head carotid Doppler ultrasounds as well as an ENT consult. Depending on test results may need to get him back into [facility] this does not appear to be seizure activity but his prior activity was fairly atypical as well that both appear to be neurologically related. In the meantime we will try to treat with some meclizine as well as Mucinex 1200 mg twice daily for any potential vestibular dysfunction. ECG today shows normal sinus rhythm with a ventricular rate of 76 normal axis no acute ST changes Follow-up: As scheduled and/or as needed. Discussed with patient that [...] appointments. Medications Reconciled. See AVS given to [place]. Time spent 30 minutes. /deisy/ Grace Montenegro MD [facility] Primary Care Signed: 11/03/2024 10:28 12/15/2024 ADDENDUM STATUS: COMPLETED Notify patient that I was there is some small vessel ischemic changes. It is important to keep pressure uncontrolled other side of the cholesterol control. His caroid ultrasounds normal with less than 50% stenosis bilaterally. /deisy/ Grace Montenegro MD [facility] Primary [facility] Signed: 12/15/2024 14:08 Receipt Acknowledged By: * AWAITING SIGNATURE * CORBY REED BRIANNACORBY Strauss [facility] Dec 15, 2024 02:04 PM ADDENDUM: LOCAL TITLE: Addendum STANDARD TITLE: ADDENDUM DATE OF NOTE: DEC 15, 2024@14:04:58 ENTRY DATE: DEC 15, 2024@14:04:59 AUTHOR: GRACE MONTENEGRO COSIGNER: URGENCY: STATUS: COMPLETED Notify patient that I was there is some small vessel ischemic changes. It is important to keep pressure uncontrolled other side of the cholesterol control. His caroid ultrasounds normal with less than 50% stenosis bilaterally. /es/ Grace Montenegro MD [facility] Primary Care Signed: 12/15/2024 14:08 Receipt Acknowledged By: 12/15/2024 15:00 /deisy/ CORBY REED [employer] --- Original Document --- 11/02/24 PRIMARY CARE CLINIC PROGRESS NOTE PB: CC: ER follow-up for dizziness HPI: Patient reports starting about 3 weeks ago he was playing mild spinning vertigo type symptoms he thought it was related to his ears he started washing out his ears with alternating alcohol and peroxide drops which actually made his vertigo worse. He came in and saw the nurse about a week ago was instructed on Marcelle maneuvers and to follow-up with any worsening of symptoms. He has now had 3 episodes where at the same time he feels heart palpitations and has had syncope last time was yesterday. He went to the emergency room was diagnosed with this dizziness and prescribed meclizine. Patient did have a MRI on his head back in December that did show some cortical atrophy and demyelination was seen by Dr. Ramos thought to be having some seizure episodes that were resolved placing on gabapentin. Non-VA Primary Care Provider none Specialty Services Dr. Garcia, sailmaker Dr. 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 JOB/DUTIES: [employer] OVERSEAS STATIONS/DEPLOYMENTS: [employer] MAJOR ACCIDENTS OR INJURIES WHILE ON ACTIVE DUTY: none (AO) SURGICAL HX: Rt. eye- repair hole in back of eyeball Bilateral cataract Left eye macular Problem List: 1) GERD - Gastro-esophageal reflux disease (SNOMED CT 637158831) 2) HTN - Hypertension (SNOMED CT 71222389) 3) Constipation (SNOMED CT 72970172) 4) HLD - Hyperlipidemia (SNOMED CT 66542140) 5) Actinic keratosis 6) Dementia 7) IBS - Irritable bowel syndrome 8) Prediabetes 9) Ptosis 10) Erectile dysfunction 11) Basal cell carcinoma of face 12) Exposure to potentially hazardous substance 13) Seizure 14) Tinea corporis 15) Obstructive sleep apnea Active Outpatient Medications (including Supplies): Active Outpatient Medications Status 1) DICYCLOMINE HCL 20MG TAB TAKE ONE TABLET BY MOUTH TWO TIMES ACTIVE A DAY BEFORE MEALS FOR IRRITABLE BOWEL 2) DONEPEZIL HCL 10MG TAB TAKE ONE TABLET BY MOUTH AT BEDTIME ACTIVE (JUST PRIOR TO RETIRING) 3) ENALAPRIL MALEATE 5MG TAB TAKE ONE TABLET BY MOUTH TWICE A ACTIVE DAY Indication: FOR HIGH BLOOD PRESSURE 4) FAMOTIDINE 20MG TAB TAKE ONE TABLET BY MOUTH TWICE A DAY TO ACTIVE LOWER STOMACH ACID 5) GABAPENTIN 100MG CAP TAKE TWO CAPSULES BY MOUTH THREE TIMES ACTIVE A DAY 6) KETOCONAZOLE 2% CREAM APPLY SPARINGLY TO AFFECTED AREA(S) ACTIVE TWICE A DAY (EXTERNAL USE ONLY) 7) MECLIZINE HCL 25MG CHEW TAB CHEW AND SWALLOW ONE TABLET BY ACTIVE MOUTH EVERY 6 HOURS NEEDED CHEWABLE TABLETS MAY BE CHEWED OR SWALLOWED WHOLE. MAY CAUSE DROWSINESS. Indication: FOR VERTIGO 8) POLYETHYLENE GLYCOL 3350 ORAL PWDR MIX AND DRINK 1 CAPFUL BY ACTIVE MOUTH ONCE A DAY TO PREVENT CONSTIPATION (MEASURE WITH CAP AND MIX IN 8 OZ OF WATER) 9) SIMVASTATIN 80MG TAB TAKE ONE-HALF TABLET BY MOUTH EVERY ACTIVE EVENING TO LOWER CHOLESTEROL (REPORT ANY MUSCLE PAIN OR WEAKNESS) THIS TABLET IS TO BE CUT IN HALF FOR YOUR DOSE Active Non-VA Medications Status 1) Non-VA ASPIRIN 81MG CHEW TAB 81MG BY MOUTH ONCE A DAY ACTIVE 2) Non-VA CYANOCOBALAMIN 100MCG TAB 100MCG BY MOUTH ONCE A DAY ACTIVE 3) Non-VA MULTIVITAMIN/MINERALS CAP/TAB 1 CAP/TAB BY MOUTH ONCE ACTIVE A DAY 12 Total Medications OBJECTIVE: Vital Signs Temperature: 97.8 F [36.6 C] (11/02/2024 14:23) Respiratory Rate: 22 (11/02/2024 14:23) Pulse Rate: 84 (11/02/2024 14:23) Blood Pressure: 126/76 (11/02/2024 14:23) HT: 70.0 in [177.8 cm] (07/04/2024 13:39) WT: 220 lb [99.79 kg] (11/02/2024 14:23) BMI: 31.6 96% (11/02/2024 14:23) Physical Exam General: NAD noted, A&Ox3, pleasant, appears stated age HEENT: NCAT, TM's clear; but with a dull, light and fluid behind the TM, nares and oropharynx clear; no nystagmus Neck: Supple with normal active ROM, without any lymphadenopathy Heart: RRR, no murmur, clicks, or rub Resp: Lungs CTA bilaterally, respirations even and unlabored Abdomen: Soft, non-distended, non-tender Ext: No clubbing, cyanosis, edema or obvious deformity Neuro: Grossly intact; Psych: Affect normal, answers questions appropriately throughout visit Assessment/Plan: 1)New onset of vertigo with 3 syncopal episodes I am going to get patient started on an event monitor sitting up for repeat MRI of his head carotid Doppler ultrasounds as well as an ENT consult. Depending on test results may need to get him back into [place] this does not appear to be seizure activity but his prior activity was fairly atypical as well that both appear to be neurologically related. In the meantime we will try to treat with some meclizine as well as Mucinex 1200 mg twice daily for any potential vestibular dysfunction. ECG today shows normal sinus rhythm with a ventricular rate of 76 normal axis no acute ST changes Follow-up: As scheduled and/or as needed. Discussed with patient that [...] appointments. Medications Reconciled. See AVS given to [place]. Time spent 30 minutes. /deisy/ Grace Montenegro MD [facility] Primary Care Signed: 11/03/2024 10:28 12/15/2024 ADDENDUM STATUS: COMPLETED Called , spoke with and his , reviewed test results. and report his BP is still allover the place . reviewed his BP log with me and reports his BP Readings: from 90's/50's to 160's/90's at times. Offered the home telehealth Blood pressure monitoring program for and they would like this. Verified that he is taking his medication as directed. They are not happy with his current Neurologist, Dr. Ramos and are requesting to see another Neurologist in [place]. Also, report that se is still passing out at least once a week. Advised that they report to the ED when that happens, especially if he hits his head. She voiced understanding. Alerting provider. /deisy/ CORBY REED LPN Signed: 12/15/2024 14:44 Receipt Acknowledged By: 12/15/2024 14:57 /john paul Montenegro MD [facility] Primary Care GRACE MONTENEGRO [facility] Nov 28, 2024 04:06 PM TELEPHONE ENCOUNTE R NOTE: LOCAL TITLE: TELEPHONE NOTE STANDARD TITLE: TELEPHONE ENCOUNTER NOTE DATE OF NOTE: NOV 28, 2024@16:06 ENTRY DATE: NOV 28, 2024@16:06:15 AUTHOR: MOISES KOVACS EXP COSIGNER: URGENCY: STATUS: COMPLETED Received call from Norma at [facility]. She stated [place] needed a hearing test and they were booked out until February and wanted to see if [place] could be scheduled here sooner. Advised that could be scheduled here at the end of December. Call transferred to [facility] for scheduling. /deisy/ Moises Kovacs RN BSN [facility] Signed: 11/28/2024 16:10 Receipt Acknowledged By: 12/05/2024 09:35 /deisy/ RENETTA MEDEROS LPN [facility] MOISES KOVACS [facility] Nov 02, 2024 02:45 PM PRIMARY CARE PROGR ESS NOTE: LOCAL TITLE: PRIMARY CARE CLINIC PROGRESS NOTE PB STANDARD TITLE: PRIMARY CARE PROGRESS NOTE DATE OF NOTE: NOV 02, 2024@14:45 ENTRY DATE: NOV 03, 2024@10:13:59 AUTHOR: GRACE MONTENEGRO EXP COSIGNER: URGENCY: STATUS: COMPLETED PRIMARY CARE CLINIC PROGRESS NOTE PB Has ADDENDA CC: ER follow-up for dizziness HPI: Patient reports starting about 3 weeks ago he was playing mild spinning vertigo type symptoms he thought it was related to his ears he started washing out his ears with alternating alcohol and peroxide drops which actually made his vertigo worse. He came in and saw the nurse about a week ago was instructed on Marcelle maneuvers and to follow-up with any worsening of symptoms. He has now had 3 episodes where at the same time he feels heart palpitations and has had syncope last time was yesterday. He went to the emergency room was diagnosed with this dizziness and prescribed meclizine. Patient did have a MRI on his head back in December that did show some cortical atrophy and demyelination was seen by Dr. Ramos thought to be having some seizure episodes that were resolved placing on gabapentin. Non-VA Primary Care Provider none Specialty Services Dr. Garcia, sailmaker Dr. 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 JOB/DUTIES: [employer] OVERSEAS STATIONS/DEPLOYMENTS: [place] MAJOR ACCIDENTS OR INJURIES WHILE ON ACTIVE DUTY: none (AO) SURGICAL HX: Rt. eye- repair hole in back of eyeball Bilateral cataract Left eye macular Problem List: 1) GERD - Gastro-esophageal reflux disease (SNOMED CT 253726873) 2) HTN - Hypertension (SNOMED CT 74841211) 3) Constipation (SNOMED CT 88521793) 4) HLD - Hyperlipidemia (SNOMED CT 38934489) 5) Actinic keratosis 6) Dementia 7) IBS - Irritable bowel syndrome 8) Prediabetes 9) Ptosis 10) Erectile dysfunction 11) Basal cell carcinoma of face 12) Exposure to potentially hazardous substance 13) Seizure 14) Tinea corporis 15) Obstructive sleep apnea Active Outpatient Medications (including Supplies): Active Outpatient Medications Status 1) DICYCLOMINE HCL 20MG TAB TAKE ONE TABLET BY MOUTH TWO TIMES ACTIVE A DAY BEFORE MEALS FOR IRRITABLE BOWEL 2) DONEPEZIL HCL 10MG TAB TAKE ONE TABLET BY MOUTH AT BEDTIME ACTIVE (JUST PRIOR TO RETIRING) 3) ENALAPRIL MALEATE 5MG TAB TAKE ONE TABLET BY MOUTH TWICE A ACTIVE DAY Indication: FOR HIGH BLOOD PRESSURE 4) FAMOTIDINE 20MG TAB TAKE ONE TABLET BY MOUTH TWICE A DAY TO ACTIVE LOWER STOMACH ACID 5) GABAPENTIN 100MG CAP TAKE TWO CAPSULES BY MOUTH THREE TIMES ACTIVE A DAY 6) KETOCONAZOLE 2% CREAM APPLY SPARINGLY TO AFFECTED AREA(S) ACTIVE TWICE A DAY (EXTERNAL USE ONLY) 7) MECLIZINE HCL 25MG CHEW TAB CHEW AND SWALLOW ONE TABLET BY ACTIVE MOUTH EVERY 6 HOURS NEEDED CHEWABLE TABLETS MAY BE CHEWED OR SWALLOWED WHOLE. MAY CAUSE DROWSINESS. Indication: FOR VERTIGO 8) POLYETHYLENE GLYCOL 3350 ORAL PWDR MIX AND DRINK 1 CAPFUL BY ACTIVE MOUTH ONCE A DAY TO PREVENT CONSTIPATION (MEASURE WITH CAP AND MIX IN 8 OZ OF WATER) 9) SIMVASTATIN 80MG TAB TAKE ONE-HALF TABLET BY MOUTH EVERY ACTIVE EVENING TO LOWER CHOLESTEROL (REPORT ANY MUSCLE PAIN OR WEAKNESS) THIS TABLET IS TO BE CUT IN HALF FOR YOUR DOSE Active Non-VA Medications Status 1) Non-VA ASPIRIN 81MG CHEW TAB 81MG BY MOUTH ONCE A DAY ACTIVE 2) Non-VA CYANOCOBALAMIN 100MCG TAB 100MCG BY MOUTH ONCE A DAY ACTIVE 3) Non-VA MULTIVITAMIN/MINERALS CAP/TAB 1 CAP/TAB BY MOUTH ONCE ACTIVE A DAY 12 Total Medications OBJECTIVE: Vital Signs Temperature: 97.8 F [36.6 C] (11/02/2024 14:23) Respiratory Rate: 22 (11/02/2024 14:23) Pulse Rate: 84 (11/02/2024 14:23) Blood Pressure: 126/76 (11/02/2024 14:23) HT: 70.0 in [177.8 cm] (07/04/2024 13:39) WT: 220 lb [99.79 kg] (11/02/2024 14:23) BMI: 31.6 96% (11/02/2024 14:23) Physical Exam General: NAD noted, A&Ox3, pleasant, appears stated age HEENT: NCAT, TM's clear; but with a dull, light and fluid behind the TM, nares and oropharynx clear; no nystagmus Neck: Supple with normal active ROM, without any lymphadenopathy Heart: RRR, no murmur, clicks, or rub Resp: Lungs CTA bilaterally, respirations even and unlabored Abdomen: Soft, non-distended, non-tender Ext: No clubbing, cyanosis, edema or obvious deformity Neuro: Grossly intact; Psych: Affect normal, answers questions appropriately throughout visit Assessment/Plan: 1)New onset of vertigo with 3 syncopal episodes I am going to get patient started on an event monitor sitting up for repeat MRI of his head carotid Doppler ultrasounds as well as an ENT consult. Depending on test results may need to get him back into [place] this does not appear to be seizure activity but his prior activity was fairly atypical as well that both appear to be neurologically related. In the meantime we will try to treat with some meclizine as well as Mucinex 1200 mg twice daily for any potential vestibular dysfunction. ECG today shows normal sinus rhythm with a ventricular rate of [address] normal axis no acute ST changes Follow-up: As scheduled and/or as needed. Discussed with patient that in the event of community imaging / testing being ordered in the future, once the imaging / testing has been completed, please notify PACT of completion at outside facility if not called with results within 1 week by a AL PACT member; this is due to intermittent lapses in notification of imaging completion within CPRS. All questions answered; agrees to plan of care. Follow up as listed above, annually, and as needed. Keep all appointments. Medications Reconciled. See AVS given to [place]. Time spent 30 minutes. /deisy/ Grace Montenegro MD [facility] Signed: 11/03/2024 10:28 12/15/2024 ADDENDUM STATUS: COMPLETED Notify patient that I was there is some small vessel ischemic changes. It is important to keep pressure uncontrolled other side of the cholesterol control. His caroid ultrasounds normal with less than 50% stenosis bilaterally. /deisy/ Grace Montenegro MD [facility] Signed: 12/15/2024 14:08 Receipt Acknowledged By: * AWAITING SIGNATURE * CORBY REED Carlos A 12/15/2024 ADDENDUM STATUS: COMPLETED Called , spoke with and his , reviewed test results. [place] and report his BP is still allover the place . reviewed his BP log with me and reports his BP Readings: from 90's/50's to 160's/90's at times. Offered the home telehealth Blood pressure monitoring program for and they would like this. Verified that he is taking his medication as directed. They are not happy with his current Neurologist, Dr. Ramos and are requesting to see another Neurologist in [place]. Also, report that is still passing out at least once a week. Advised that they report to the ED when that happens, especially if he hits his head. She voiced understanding. Alerting provider. /deisy/ CORBY REED LPN Signed: 12/15/2024 14:44 Receipt Acknowledged By: * AWAITING SIGNATURE * GRACE MONTENEGRO [facility] Nov 02, 2024 02:24 PM PRIMARY CARE NURSI NG NOTE: LOCAL TITLE: PRIMARY CARE NURSING PROGRESS NOTE (TEXT) NURSING P STANDARD TITLE: PRIMARY CARE NURSING NOTE DATE OF NOTE: NOV 02, 2024@14:24 ENTRY DATE: NOV 02, 2024@14:24:17 AUTHOR: EVA STARKS COSIGNER: URGENCY: STATUS: COMPLETED PRIMARY CARE NURSING PROGRESS NOTE (TEXT) NURSING PB Has ADDENDA Established Patient MIRTHA STARKS IS A 78 YEAR OLD MALE BEING SEEN IN CLINIC NOV 02, 2024. = = REASON FOR VISIT: [place] here for ER follow up. Are you receiving care any where other than the [facility]? No HEALTH AND SURGICAL HISTORY: Does patient report using home oxygen? CURRENT ACTIVE MEDICATIONS FOR REVIEW: Allergies/ADRs (Tool #5) FACILITY ALLERGY/ADR -------- No Remote Allergy/ADR Data available for this patient [facility]NA[facility]YL [facility] PRILOSEC 20MG CAPSULE Med. Reconciliation (Tool #1) INCLUDED IN THIS LIST: Alphabetical list of active outpatient prescriptions dispensed from this VA (local) and dispensed from another AL or DoD facility (remote) as well as inpatient orders (local pending and active), local clinic medications, locally documented non-VA medications, and local prescriptions that have or been discontinued in the past 90 days. Non-VA Meds Last Documented On: Jan 03, 2019 NOTE The display of VA prescriptions dispensed from another AL or [facility] facility (remote) is limited to active outpatient prescription entries matched to National Drug File at the originating site and may not include some items such as investigational drugs, compounds, etc. NOT INCLUDED IN THIS LIST: Medications self-entered by the patient into personal health records (i.e. [employer]) are NOT included in this list. Non-VA medications documented outside this AL, remote inpatient orders (regardless of status) and [...] DAY BEFORE MEALS FOR IRRITABLE BOWEL Rx# [id number] Last Released: 08/16/24 Qty/Days Supply: 180/ Rx Expiration Date: 07/05/25 Refills Remainin OUTPT DONEPEZIL HCL 10MG TAB (Status = Active) TAKE ONE TABLET BY MOUTH AT BEDTIME (JUST PRIOR TO RETIRING) Rx# [id number] Last Released: 07/26/24 Qty/Days Supply: 90/90 Rx Expiration Date: 07/05/25 Refills Remainin OUTPT ENALAPRIL MALEATE 5MG TAB (Status = Active) TAKE ONE TABLET BY MOUTH TWICE A DAY FOR HIGH BLOOD PRESSURE Rx# [id number] Last Released: 08/16/24 Qty/Days Supply: 180 Rx Expiration Date: 07/05/25 Refills Remainin Indication: FOR HIGH BLOOD PRESSURE OUTPT FAMOTIDINE 20MG TAB (Status = Active) TAKE ONE TABLET BY MOUTH TWICE A DAY TO LOWER STOMACH ACID Rx# [id number] Last Released: 07/03/24 Qty/Days Supply: 180 Rx Expiration Date: 06/07/25 Refills Remainin OUTPT GABAPENTIN 100MG CAP (Status = Active) TAKE TWO CAPSULES BY MOUTH THREE TIMES A DAY Rx# [id number] Last Released: 10/11/24 Qty/Days Supply: 180 Rx Expiration Date: 07/26/25 Refills Remainin OUTPT KETOCONAZOLE 2% CREAM (Status = Active) APPLY SPARINGLY TO AFFECTED AREA(S) TWICE A DAY (EXTERNAL USE ONLY) Rx# [id number] Last Released: 04/17/24 Qty/Days Supply: 60 Rx [...] MIX IN 8 OZ OF WATER) Rx# [id number] Last Released: 10/06/24 Qty/Days Supply: 510 Rx Expiration Date: 07/05/25 Refills Remainin OUTPT SIMVASTATIN 80MG TAB (Status = Active) TAKE ONE-HALF TABLET BY MOUTH EVERY EVENING TO LOWER CHOLESTEROL (REPORT ANY MUSCLE PAIN OR WEAKNESS) THIS TABLET IS TO BE CUT IN HALF FOR YOUR DOSE Rx# [id number] Last Released: 08/16/24 Qty/Days Supply: 45 Rx Expiration Date: 07/05/25 Refills Remainin SUPPLIES PHARMACY TERMS AND POSSIBLE PATIENT ACTIONS INPT = AL inpatient order IV = AL intravenous medication OUTPT = AL outpatient prescription PHARMACY POSSIBLE PATIENT TERMS EXPLANATION ACTIONS -------- ---- ACTIVE A prescription that can be If you have refills, filled at the local AL pharmacy. you may request a refill of this prescription from your AL pharmacy. CLINIC A medication you received during If you have questions a visit to a AL clinic or about this medication emergency department. contact your AL healthcare team. DISCONTINUED A prescription your provider has Contact your VA stopped. It is no longer healthcare team if you available to be sent to you or need more of this picked up at the AL pharmacy medication. window. A prescription which is [...] the VA. Or, it may be an [id number]-[id number] (OTC), herbal, dietary supplements or sample medication. [...] An active prescription that is Contact your AL not scheduled to be filled yet. pharmacy if you need You should receive it before this medication now. you run out. ketokonazole cream prn IS PATIENT TAKING ANY OVER THE COUNTER MEDICATIONS, SUCH VITAMINS OR HERBAL SUPPLEMENTS, INCLUDING ANY MEDICATIONS PRESCRIBED BY ANOTHER PHYSICIAN? Yes, List: Vitamin D daily / ASA 81mg daily / Multi Vitamin daily / Cyanocobalamin daily ALLERGIES/ADVERSE REACTIONS: BENADRYL, PRILOSEC 20MG CAPSULE Does patient have any new allergies to report since last visit? VITALS: TEMPERATURE: 97.8 F [36.6 C] (11/02/2024 14:23) BP: 126/76 (11/02/2024 14:23) RESP: 22 (11/02/2024 14:23) PULSE: 84 (11/02/2024 14:23) HT: 70.0 in [177.8 cm] (07/04/2024 13:39) WT: 220 lb [99.79 kg] (11/02/2024 14:23) BMI: 31.6 PAIN ASSESSMENT: (Most Recent Pain Score in Vitals Package: 0 (11/02/2024 14:23) ) The patient indicated that they and [...] chickenpox, or zoster in last 30 days. STRESS: Thank you for your service. Now let us serve you. At the [facility], we strive to provide you with exceptional [...] Not At All SPIRITUAL ASSESSMENT: Are there scientologist practices or spiritual concerns you want the television picture tube rebuilder, your physician, and other health care team members to immediately know about? Patient advised to call the clinic for any concerns, questions, or symptoms. Patient and/or caregiver verbalized understanding of plan of care. /deisy/ EVA STARKS LPN Signed: 11/02/2024 14:26 11/02/2024 ADDENDUM STATUS: COMPLETED Pain Assessment: - PAIN ASSESSMENT: .. Patient reports no pain at this visit. Pain Score = 0. Patient's self identified pain goal: 0 Patient/Nurse Interview: * * Patient states that questions were answered in a way that was easily understood. /es/ EVA STARKS LPN Signed: 11/02/2024 14:29 11/03/2024 ADDENDUM STATUS: COMPLETED Per [facility] Directive 1605.06, wristband documentation: Patient wristband was removed and destroyed by (staff name) eva starks lpn and placed in the designated [email or web address] bin. /es/ EVA STARKS LPN Signed: 11/03/2024 06:45 EVA STARKS [facility]
--- OUTSIDE RECORDS SUMMARY | 2024-12-20 04:45 | XMS_ITS | Encounter Summary ---
Author Name [facility] [place] [facility] [place] Address [address] [place] [address] Care Team Providers Care Cigar Making Supervisor Name Role Phone GRACE LAM Primary Care Provider Unavailabl e Insurance Providers: [...] PART A Dec 03, 2011 PART A [id number] [phone] MIRTHA STARKS PATIENT MEDICARE (WNR) MEDICARE (M) PART A Dec 03, 2011 PART A [id number] [phone] MIRTHA STARKS PATIENT Selected Encounter This section includes the information on record at [place] for the Encounter. Date/Time Encounter Type Encounter Description Reason Provider Source Dec 20, 2024 09:45 AM OFF/OP EST FEBRUARY X REQ PHY/QHP PRIMARY CARE/MEDICINE ICD-10-CM H61.20 Impacted cerumen, unspecified ear CAMILO CALVERT Encounter Template Text not used by [place] Assessments - Encounter Diagnoses This section includes the primary and secondary diagnoses documented for the Encounter. Date/Time Primary/Secondary Diagnosis Diagnosis Name Provider Source Dec 20, 2024 10:39 AM PRIMARY Impacted cerumen, unspecified ear [facility] Plan of Treatment: Future Appointments (+ 6 months) and Future Tests (+/- 45 days) The Plan of Treatment section includes future care activities for the patient from all [place] treatmentfacilities. This section includes future appointments and future orders which are active, pending or scheduled. Future Appointments This section includes appointments that were scheduled to occur 6 months from the date of the Encounter, up to a maximum of 20 appointments. The data comes from all [place] treatment facilities. Appointment Date/Time Appointment Type Appointme nt Facility Name Dec 27, 2024 09:30 AM [facility] Dec 27, 2024 09:32 AM [facility] Mar 23, 2025 10:30 AM [facility] May 30, 2025 03:15 PM [facility] Jun 11, 2025 08:20 AM [facility] Jun 18, 2025 01:00 PM [facility] Social History: Smoking Status (Most current) and Tobacco Use (All prior to encounter date) This section includes the most current, and the historical, smoking and tobacco- related health factors from the [place] facility where the Encounter took place. Current Smoking Status This section includes the most current smoking, or tobacco-related health factor, from the [place] facility where the Encounter took place. Date/Time Current Smoking Status Comment Jenise stocky Jul 04, 2024 01:30 PM VA-TOBACCO NEVER USED [facility] Tobacco Use History This section includes a history of the smoking, or tobacco-related health factors, that were collected on or before the date of the Encounter. The data comes from the [place] facility where the Encounter took place. Date/Time Smoking Status/Tobacco Use Comment F acgiovanny Jul 08, 2023 09:00 AM VA-TOBACCO NEVER USED [facility] Jul 14, 2022 09:00 AM VA-TOBACCO NEVER USED [facility] Aug 13, 2020 09:00 AM VA-TOBACCO NEVER USED [facility] Aug 22, 2019 08:33 AM VA-TOBACCO NEVER USED [facility] Jan 09, 2010 01:44 PM LIFETIME NON-USER OF TOBACCO [facility] Advance Directives: All historical and current Section Date Range: From patient's date of to the date document was created. This section includes ALL of a patient's completed or amended [place] Advance and Rescinded Directives. The entries below indicate that a directive exists for the patient, but an actual copy is not included with this document. The data comes from all [place] facilities. Date Advance Directives Provider Source Nov 07, 2012 ADVANCE DIRECTIVE KIAN MORLEY [facility] May 05, 2011 ADVANCE DIRECTIVE MOHAMUD BRISENO [facility] Apr 13, 2011 ADVANCE DIRECTIVE DISCUSSION MOHAMUD BRISENO [facility] Encounter Notes: All associated encounter notes This section contains the clinical notes associated to the Encounter. Date/Time Encounter Note(s) Provider Source Dec 20, 2024 10:29 AM NURSING PROGRESS N OTE: LOCAL TITLE: NURSING NOTE PB STANDARD TITLE: NURSING PROGRESS NOTE DATE OF NOTE: DEC 20, 2024@10:29 ENTRY DATE: DEC 20, 2024@10:29:12 AUTHOR: CEDRIC CALVERT COSIGNER: URGENCY: STATUS: COMPLETED [place] presented to the clinic for ear flush prior to a hearing exam. The ambulated to the exam room with use of cane, gate is steady. The 's ears were clear of cerumen bilaterally, TM visualized bilaterally. No ear flush needed. The does report that it feels like there is something in the left ear and that it feels full all the time. Let the know that there is nothing in the ear, did not see any signs of infection, but it did look like he had some fluid behind the TM. The is currently taking a sinus medication once a day that has 200mg of guaifenesin. Let the know that he could get a medication that was just Guaifenesin that did not have anything else in it and that he could take 600-1200mg of Guaifenesin twice a day. Advised that he try this to see if it would dry up some of the fluid behind the TM. Also let him know that it may help decrease some of the dizziness some because it may be aggravating what else may be causing the dizziness. The did report that he is wearing the heart monitor that Dr. Lam ordered for his syncopal episodes and that he had the carotid US done. But does report that he is still having issues of passing out. Results of the Carotid US reported to the on 12/15/24. The and his are in agreement with the plan and had no further questions or concerns at this time and ambulated to the exit in satisfactory manner. /deisy/ Cedric Calvert RN,BSN [place] [facility] Signed: 12/20/2024 10:39 Receipt Acknowledged By: 12/21/2024 08:56 /es/ Grace [facility] CEDRIC CALVERT [facility]
--- OUTSIDE RECORDS SUMMARY | 2024-12-26 05:56 | XMS_ITS | Encounter Summary ---
Author Name [facility] [place] [place] Organization [facility] [place] Address [address] [place] [address] Care Team Providers Care Assistant Broker Name Role Phone BOZENA MONTENEGRO Primary Care Provider Unavailabl e Insurance [...] PART A Dec 03, 2011 PART A [id number] ERICKSONDAVIDMIRTHA [place] PATIENT MEDICARE (WNR) MEDICARE (M) PART A Dec 03, 2011 PART A [id number] [phone] ERICKSONDAVIDMIRTHA [place] PATIENT Selected Encounter This section includes the information on record at [place] for the Encounter. Date/Time Encounter Type Encounter Description Reason Pro vider Source Dec 26, 2024 10:56 AM Outpatient Encounter ADMIN PAT ACTIVTIES (MASNONCT) IHE Encounter Template Text not used by [facility] Plan of Treatment: Future Appointments (+ 6 months) and Future Tests (+/- 45 days) The Plan of Treatment section includes future care activities for the patient from all [place] [facility] This section includes future appointments and future orders which are active, pending or scheduled. Future Appointments This section includes appointments that were scheduled to occur 6 months from the date of the Encounter, up to a maximum of 20 appointments. The data comes from all [place] treatment facilities. Appointment Date/Time Appointment Type Appointme nt Facility Name Dec 27, 2024 09:30 AM [facility] Dec 27, 2024 09:32 AM [facility] Mar 23, 2025 10:30 AM [facility] May 30, 2025 03:15 PM [facility] Jun 11, 2025 08:20 AM [facility] Jun 18, 2025 01:00 PM [facility] Jun 26, 2025 02:00 PM [facility] Social History: Smoking Status (Most current) and Tobacco Use (All prior to encounter date) This section includes the most current, and the historical, smoking and tobacco- related health factors from the [place] facility where the Encounter took place. Current Smoking Status This section includes the most current smoking, or tobacco-related health factor, from the [place] facility where the Encounter took place. Date/Time Current Smoking Status Comment Jenise ity Jul 04, 2024 01:30 PM VA-TOBACCO NEVER USED [facility] Tobacco Use History This section includes a history of the smoking, or tobacco-related health factors, that were collected on or before the date of the Encounter. The data comes from the [place] facility where the Encounter took place. Date/Time [...] LIFETIME NON-USER OF TOBACCO [facility] Advance Directives: All historical and current Section Date Range: From patient's date of to the date document was created. This section includes ALL of a patient's completed or amended [place] Advance and Rescinded Directives. The entries below indicate that a directive exists for the patient, but an actual copy is not included with this document. The data comes from all [place] facilities. Date Advance Directives Provider Source Nov 07, 2012 ADVANCE DIRECTIVE KIAN MORLEY [facility] May 05, 2011 ADVANCE DIRECTIVE MOHAMUD BRISENO [facility] Apr 13, 2011 ADVANCE DIRECTIVE DISCUSSION MOHAMUD BRISENO [facility] Encounter Notes: All associated encounter notes This section contains the clinical notes associated to the Encounter. Date/Time Encounter Note(s) Provider Source Dec 26, 2024 10:56 AM GENERAL MEDICINE N OTE: LOCAL TITLE: General Note PB STANDARD TITLE: GENERAL MEDICINE NOTE DATE OF NOTE: DEC 26, 2024@10:56 ENTRY DATE: DEC 26, 2024@10:56:20 AUTHOR: SHELBY BEGUM EXP COSIGNER: URGENCY: STATUS: COMPLETED Confirmed 9:30am appt on 12/27 with Audiology /deisy/ NIKKI FREEMAN [facility] Signed: 12/26/2024 10:56 SHELBY BEGUM [facility]
--- OUTSIDE RECORDS SUMMARY | 2024-12-27 04:30 | XMS_ITS | Encounter Summary ---
Author Name [facility] Organization [facility] Address [address] [place] [address] Care Team Providers Care Drying Can Worker Name Role Phone BOZENA MONTENEGRO Primary Care [...] PART A Dec 03, 2011 PART A [id number] ERICKSONSCMIRTHA WALDEN PATIENT MEDICARE (WNR) MEDICARE (M) PART A Dec 03, 2011 PART A [id number] BRANSCUM, TADEOBIE PATIENT Selected Encounter This section includes the information on record at MD for the Encounter. Date/Time Encounter Type Encounter Description Reason Provider Source Dec 27, 2024 09:30 AM TYMPANOMETRY AUDIOLOGY ICD-10-CM H93.13 Tinnitus, bilateral GRAVES,ALEXAND RA A IHE Encounter Template Text not used by [facility] Assessments - Encounter Diagnoses This section includes the primary and secondary diagnoses documented for the Encounter. Date/Time Primary/Secondary Diagnosis Diagnosis Name Provider Source Dec 27, 2024 09:59 AM PRIMARY Tinnitus, bilateral LJ LIEBERMAN RA POPLAR BLUFF [facility] Dec 27, 2024 09:59 AM SECONDARY Sensorineural hearing loss, bilateral LJ LIEBERMAN RA POPLAR BLUFF [facility] Plan of Treatment: Future Appointments (+ 6 months) and Future Tests (+/- 45 days) The Plan of Treatment section includes future care activities for the patient from [facility] This section includes future appointments and future orders which are active, pending or scheduled. Future Appointments This section includes appointments that were scheduled to occur 6 months from the date of the Encounter, up to a maximum of 20 appointments. The data comes from all MD treatment facilities. Appointment Date/Time Appointment Type Appointme nt Facility Name Mar 23, 2025 10:30 AM AMBULATORY - MEDICINE [facility] May 30, 2025 03:15 PM AMBULATORY - MEDICINE [facility] Jun 11, 2025 08:20 AM AMBULATORY - MEDICINE [facility] Jun 18, 2025 01:00 PM AMBULATORY - MEDICINE [facility] Jun 26, 2025 02:00 PM AMBULATORY - MEDICINE [facility] Advance Directives: All historical and current Section Date Range: From patient's date of to the date document was created. This section includes ALL of a patient's completed or amended MD Advance and Rescinded Directives. The entries below indicate that a directive exists for the patient, but an actual copy is not included with this document. The data comes from all [facility]. Date Advance Directives Provider Source Nov 07, 2012 ADVANCE DIRECTIVE KIAN MORLEYU [facility] May 05, 2011 ADVANCE DIRECTIVE MOHAMUD BRISENO [facility] Apr 13, 2011 ADVANCE DIRECTIVE DISCUSSION MOHAMUD BRISENO [facility] Encounter Notes: All associated encounter notes This section contains the clinical notes associated to the Encounter. Date/Time Encounter Note(s) Provider Source Dec 27, 2024 01:20 PM ADDENDUM: LOCAL TITLE: Addendum STANDARD TITLE: ADDENDUM DATE OF NOTE: DEC 27, 2024@13:20:28 ENTRY DATE: DEC 27, 2024@13:20:28 AUTHOR: MEERA LIEBERMAN COSIGNER: URGENCY: STATUS: COMPLETED Today's audiogram was sent to scanning with request to forward for ENT consult. Scanning requested copy be sent to [facility] since consult was placed by PCP. /deisy/ Tamiko Walton [facility] Signed: 12/27/2024 13:23 Receipt Acknowledged By: 12/27/2024 13:37 /deisy/ MARQUISE VALENCIA [facility] --- Original Document --- 12/27/24 HEARING CLINIC PB: Diagnosis: Sensorineural Hearing Loss, Bilateral and Tinnitus, Bilateral Treatment: Hearing Evaluation Time spent with [place]: 60 minutes [place] seen for an audiogram via Audio Telehealth and verbally consented to the Telehealth modality. Multi-factor personally identifiable information of the was obtained verbally (full name and date of ). [place] accompanied by: Patient site: [facility] AUDIOLOGIC HISTORY: Patient seen today for an initial hearing evaluation. - Ear surgery: no - Aural Pain/Pressure/Drainage: long-standing intermittent bilateral pressure - Tinnitus: bilateral/constant/non-bot hersome - Noise Exposure: yes - Vertigo: previously referred to [facility] HEARING DEVICES: none AUDIOMETRIC EXAM: Otoscopy was performed by collaboration of telehealth clinical it help desk technician and provider via telehealth technology/video otoscope which revealed: Right: minimal non-occluding cerumen Left: unremarkable Tympanograms: Right: consistent with normal middle ear function Left: consistent with normal middle ear function Acoustic Reflex Thresholds: not performed due to time constraints Pure-Tone Air and Bone-Conduction Audiometric Testing revealed: Right: within normal limits 250-2000 Hz, mild to moderate sensorineural hearing loss Left: within normal limits 250-2000 Hz, mild sensorineural hearing loss Speech Recognition Threshold testing yielded: Right: 25 dBHL Left: 15 dBHL Word Recognition testing yielded: Right: 88% @ 60 dBHL Left: 92% @ 60 dBHL Word scoring may be impacted by quality of audio through telehealth medium. Test Reliability: Good PROVIDER COMMENTS/RECOMMENDATIONS: Hearing test results were reviewed with patient. Patient is not interested in a hearing aid trial at this time. Counseled patient regarding effective communication strategies, importance of using hearing protection in high level noise, tinnitus, and factors affecting tinnitus. PLAN: 1) Test results will be sent to ENT per 11/28 telephone request. 2) Recommend hearing evaluation annually or prn. [place] expressed understanding and is in agreement with the plan. * Co-signing medicare specialist. Patient would like to alert PACT team that hearing test has been completed. /deisy/ Tamiko Walton [facility] Signed: 12/27/2024 09:59 Receipt Acknowledged By: * AWAITING SIGNATURE * CEDRIC CALVERT ALEXANDRA A POPLAR BLUFF [place] [facility] Dec 27, 2024 07:25 AM AUDIOLOGY NOTE: LOCAL TITLE: HEARING CLINIC PB STANDARD TITLE: AUDIOLOGY NOTE DATE OF NOTE: DEC 27, 2024@07:25 ENTRY DATE: DEC 27, 2024@07:25:15 AUTHOR: MEERA LIEBERMAN EXP COSIGNER: URGENCY: STATUS: COMPLETED HEARING CLINIC PB Has ADDENDA Diagnosis: Sensorineural Hearing Loss, Bilateral and Tinnitus, Bilateral Treatment: Hearing Evaluation Time spent with : 60 minutes seen for an audiogram via Audio Telehealth and verbally consented to the Telehealth modality. Multi-factor personally identifiable information of the was obtained verbally (full name and date of ). [place] accompanied by: Patient site: [facility] AUDIOLOGIC HISTORY: Patient seen today for an initial hearing evaluation. - Ear surgery: no - Aural Pain/Pressure/Drainage: long-standing intermittent bilateral pressure - Tinnitus: bilateral/constant/non-bot hersome - Noise Exposure: yes - Vertigo: previously referred to [facility] HEARING DEVICES: none AUDIOMETRIC EXAM: Otoscopy was performed by collaboration of telehealth clinical it help desk technician and provider via telehealth technology/video otoscope which revealed: Right: minimal non-occluding cerumen Left: unremarkable Tympanograms: Right: consistent with normal middle ear function Left: consistent with normal middle ear function Acoustic Reflex Thresholds: not performed due to time constraints Pure-Tone Air and Bone-Conduction Audiometric Testing revealed: Right: within normal limits 250-2000 Hz, mild to moderate sensorineural hearing loss Left: within normal limits 250-2000 Hz, mild sensorineural hearing loss Speech Recognition Threshold testing yielded: Right: 25 dBHL Left: 15 dBHL Word Recognition testing yielded: Right: 88% @ 60 dBHL Left: 92% @ 60 dBHL Word scoring may be impacted by quality of audio through telehealth medium. Test Reliability: Good PROVIDER COMMENTS/RECOMMENDATIONS: Hearing test results were reviewed with patient. Patient is not interested in a hearing aid trial at this time. Counseled patient regarding effective communication strategies, importance of using hearing protection in high level noise, tinnitus, and factors affecting tinnitus. PLAN: 1) Test results will be sent to ENT per 11/28 telephone request. 2) Recommend hearing evaluation annually or prn. [place] expressed understanding and is in agreement with the plan. * Co-signing medicare specialist. Patient would like to alert PACT team that hearing test has been completed. /deisy/ Tamiko Waltonhing [facility] Signed: 12/27/2024 09:59 Receipt Acknowledged By: 12/27/2024 17:04 /es/ Cedric Calvert RN,BSN [facility] 12/27/2024 ADDENDUM STATUS: COMPLETED Today's audiogram was sent to scanning with request to forward for ENT consult. Scanning requested copy be sent to [facility] since consult was placed by PCP. /deisy/ Tamiko Walton [place] [facility] Signed: 12/27/2024 13:23 Receipt Acknowledged By: 12/27/2024 13:37 /es/ MEERA FRANKLIN [facility]
--- OUTSIDE RECORDS SUMMARY | 2025-03-23 05:30 | XMS_ITS | Encounter Summary ---
Author Name [facility] [place] [facility] [place] Address [address] [place] [address] Care Team Providers Care Flute Teacher Name Role Phone GRACE LAM Primary Care [...] PART A Dec 03, 2011 PART A [id number] [phone] ERICKSONDAVIDMIRTHA [place]AL[place] PATIENT MEDICARE (WNR) MEDICARE (M) PART A Dec 03, 2011 PART A [id number] ERICKSONDAVIDWIN MIRTHA PATIENT Selected Encounter This section includes the information on record at [place] for the Encounter. Date/Time Encounter Type Encounter Description Reason Provider Source Mar 23, 2025 10:30 AM OFFICE O/P EST LOW 20 MIN PRIMARY CARE/MEDICINE ICD-10-CM F03.90 Unsp dementia, unsp severity, without beh/psych/mood /anx GRACE LAM IHCullen Encounter Template Text not used by [facility] Assessments - Encounter Diagnoses This section includes the primary and secondary diagnoses documented for the Encounter. Date/Time Primary/Secondary Diagnosis Diagnosis Name Provider Source Mar 23, 2025 11:04 AM PRIMARY Unsp dementia, unsp severity, without beh/psych/mood/anx GRACE LAM [facility] Mar 23, 2025 11:04 AM SECONDARY Unspecified convulsions GRACE LAM [facility] Plan of Treatment: Future Appointments (+ 6 months) and Future Tests (+/- 45 days) The Plan of Treatment section includes future care activities for the patient from all [place] [facility]. This section includes future appointments and future orders which are active, pending or scheduled. Future Appointments This section includes appointments that were scheduled to occur 6 months from the date of the Encounter, up to a maximum of 20 appointments. The data comes from all [place] treatment facilities. Appointment Date/Time Appointment Type Appointme nt Facility Name May 30, 2025 03:15 PM AMBULATORY - MEDICINE [facility] Jun 11, 2025 08:20 AM AMBULATORY - MEDICINE [facility] Jun 18, 2025 01:00 PM AMBULATORY - MEDICINE [facility] Jun 26, 2025 02:00 PM AMBULATORY - MEDICINE [facility] Active, Pending, and Scheduled Orders This section includes a listing of several types of active, pending, and scheduled orders, including clinic medications orders, diagnostic test orders, procedure orders and consult orders; where the start date of the order is 45 days before the date of the Encounter or 45 days after the date of theEncounter. The data comes from all [place] treatment facilities. Test Date/Time Test Type Test Details Facility Name Mar 23, 2025 10:57 AM Consult Order COMMUNITY CARE-NEUROLOGY [id number] Cons Aircraft Painter Apprentice's Choice [facility] Vital Signs: All taken on the encounter date This section contains inpatient and outpatient Vital Signs collected on the date of the Encounter. Date/Time Temperature Pulse Blood Pressure Respiratory Rate SP02 Pain Height Weight Body Mass Index Source Mar 23, 2025 10:38 AM 76 /min 127/84 mm[Hg] 94 % [facility] Mar 23, 2025 10:37 AM 97.6 F 76 /min 146/92 mm[Hg] 18 /min 94 % 2 70.0 in 217.4 lb 31 [facility] Social History: Smoking Status (Most current) and Tobacco Use (All prior to encounter date) This section includes the most current, and the historical, smoking and tobacco- related health factors from the [place] facility where the Encounter took place. Current Smoking Status This section includes the most current smoking, or tobacco-related health factor, from the [place] facility where the Encounter took place. Date/Time Current Smoking Status Comment Facil ity Jul 04, 2024 01:30 PM VA-TOBACCO NEVER USED [facility] Tobacco Use History This section includes a history of the smoking, or tobacco-related health factors, that were collected on or before the date of the Encounter. The data comes from the [place] facility where the Encounter took place. Date/Time Smoking Status/Tobacco Use Comment F acility Jul 08, 2023 09:00 AM VA-TOBACCO NEVER USED [facility] Jul 14, 2022 09:00 AM VA-TOBACCO NEVER USED [facility] Aug 13, 2020 09:00 AM VA-TOBACCO NEVER USED [facility] Aug 22, 2019 08:33 AM VA-TOBACCO NEVER USED [facility] Jan 09, 2010 01:44 PM LIFETIME NON-USER OF TOBACCO [facility] Advance Directives: All historical and current Section Date Range: From patient's date of to the date document was created. This section includes ALL of a patient's completed or amended [place] Advance and Rescinded Directives. The entries below indicate that a directive exists for the patient, but an actual copy is not included with this document. The data comes from all [place] facilities. Date Advance Directives Provider Source Nov 07, 2012 ADVANCE DIRECTIVE KIAN MORLEY FF [facility] May 05, 2011 ADVANCE DIRECTIVE MOHAMUD BRISENO [facility] Apr 13, 2011 ADVANCE DIRECTIVE DISCUSSION MOHAMUD BRISENO [facility] Encounter Notes: All associated encounter notes This section contains the clinical notes associated to the Encounter. Date/Time Encounter Note(s) Provider Source Mar 23, 2025 10:45 AM PRIMARY CARE PROGR ESS NOTE: LOCAL TITLE: PRIMARY CARE CLINIC PROGRESS NOTE PB STANDARD TITLE: PRIMARY CARE PROGRESS NOTE DATE OF NOTE: MAR 23, 2025@10:45 ENTRY DATE: MAR 23, 2025@10:45:43 AUTHOR: GRACE LAM EXP COSIGNER: URGENCY: STATUS: COMPLETED SUBJECTIVE: MIRTHA STARKS is a 79 years old MALE. CC: ER follow-up HPI: Patient was seen in the emergency room on March 07, 2024 for short-term memory issues. With consultation via phone with neurologist thought possible absence seizure's and started on Keppra. Patient never did start on the Keppra had actually stopped all of his medicines and started them back slowly noticed when he started back the Aricept is he started having memory episode issues again. So they have stopped it completely. He does have a pending consult with neurology for follow-up. Non-VA Primary Care Provider none Specialty Services Dr. Garcia, apartment leasing agent Dr. 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 JOB/DUTIES: [employer] OVERSEAS STATIONS/DEPLOYMENTS: [employer] MAJOR ACCIDENTS OR INJURIES WHILE ON ACTIVE DUTY: none (AO) SURGICAL HX: Rt. eye- repair hole in back of eyeball Bilateral cataract Left eye macular Problem List 1) GERD - Gastro-esophageal reflux disease (SNOMED CT 473699735) 2) HTN - Hypertension (SNOMED CT 92697801) 3) Constipation (SNOMED CT 20581710) 4) HLD - Hyperlipidemia (SNOMED CT 05994253) 5) Actinic keratosis 6) Dementia 7) IBS - Irritable bowel syndrome 8) Prediabetes 9) Ptosis 10) Erectile dysfunction 11) Basal cell carcinoma of face 12) Exposure to potentially hazardous substance 13) Seizure 14) Tinea corporis 15) Obstructive sleep apnea 16) Basal cell carcinoma of nose 17) Bilateral tinnitus 18) Sensorineural hearing loss of bilateral ears Active Outpatient Medications (including Supplies): Active Outpatient Medications Status 1) DICYCLOMINE HCL 20MG TAB TAKE ONE TABLET BY MOUTH TWO TIMES ACTIVE (S) A DAY BEFORE MEALS FOR IRRITABLE BOWEL [...] MOUTH THREE TIMES ACTIVE A DAY 6) POLYETHYLENE GLYCOL 3350 ORAL PWDR MIX AND DRINK 1 CAPFUL BY ACTIVE MOUTH ONCE A DAY TO PREVENT CONSTIPATION (MEASURE WITH CAP AND MIX IN 8 OZ OF WATER) 7) SIMVASTATIN 80MG TAB TAKE ONE-HALF TABLET BY [...] CAP/TAB BY MOUTH ONCE ACTIVE A DAY 10 Total Medications Allergies: BENADRYL, PRILOSEC 20MG CAPSULE [...] Vital Signs Temperature: 97.6 F [36.4 C] (03/23/2025 10:37) Respiratory Rate: 18 (03/23/2025 10:37) Pulse Rate: 76 (03/23/2025 10:38) Blood Pressure: 127/84 (03/23/2025 10:38) HT: 70.0 in [177.8 cm] (03/23/2025 10:37) WT: 217.4 lb [98.61 kg] (03/23/2025 10:37) BMI: 31.3 94% (03/23/2025 10:38) Physical Exam General: NAD noted, A&Ox3, pleasant, [...] diet and exercise as well as immunizations. 1) Dementia with demyelination of the brain-was improved initially on Aricept but now seems to be having increased issues on the Aricept we will discontinue the Aricept and put him on Namenda. They prefer no longer to see Dr. 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 Basal cell carcinoma of face- followed by rim technician Depression- denies any issues GERD - doing [...] received; otherwise f/u as listed below. Follow-up: As scheduled in June with fasting labs prior to appointment and/or [...] appointments. Medications Reconciled. See AVS given to [place]. Time spent 30 minutes. /es/ Grace Lam MD [facility] Primary Care Signed: 03/23/2025 11:06 GRACE LAM [facility] Mar 23, 2025 10:29 AM PRIMARY CARE NURSI NG NOTE: LOCAL TITLE: PRIMARY CARE NURSING PROGRESS NOTE (TEXT) NURSING P STANDARD TITLE: PRIMARY CARE NURSING NOTE DATE OF NOTE: MAR 23, 2025@10:29 ENTRY DATE: MAR 23, 2025@10:29:46 AUTHOR: RENETTA MEDEROS COSIGNER: URGENCY: STATUS: COMPLETED Established Patient MIRTHA STARKS IS A 79 YEAR OLD MALE BEING SEEN IN CLINIC MAR 23, 2025. == == REASON FOR VISIT: here for ER follow up Are you receiving care any where other than the [facility]? No HEALTH AND SURGICAL HISTORY: Does patient report using home oxygen? No CURRENT ACTIVE MEDICATIONS FOR REVIEW: If the list for review does not include a component, then it was not applicable to this patient. Allergies/ADRs (Tool #5) FACILITY ALLERGY/ADR -------- No Remote Allergy/ADR Data available for this patient [facility]NADRYL [facility] PRILOSEC 20MG CAPSULE Med. Reconciliation (Tool #1) INCLUDED IN THIS LIST: Alphabetical list of active outpatient prescriptions dispensed from this [place] (local) and dispensed from another [place] or [facility] facility (remote) as well as inpatient orders (local pending and active), local clinic medications, locally documented non-VA medications, and local prescriptions that have or been discontinued in the past 90 days. Non-VA Meds Last Documented On: Jan 03, 2019 NOTE The display of VA prescriptions dispensed from another [place] or [facility] facility (remote) is limited to active outpatient prescription entries matched to National Drug File at the originating site and may not include some items such as investigational drugs, compounds, etc. NOT INCLUDED IN THIS LIST: Medications self-entered by the patient into personal health records (i.e. [employer]) are NOT included in this list. Non-VA medications documented outside this [place], remote inpatient orders (regardless of status) and [...] OUTPT DICYCLOMINE HCL 20MG TAB (Status = Active/Suspended) TAKE ONE TABLET BY MOUTH TWO TIMES A DAY BEFORE MEALS FOR IRRITABLE BOWEL Rx# [id number] Last Released: 02/01/25 Qty/Days Supply: 180/ Rx Expiration Date: 07/05/25 Refills Remainin OUTPT DONEPEZIL HCL 10MG TAB (Status = Active) TAKE ONE TABLET BY MOUTH AT BEDTIME (JUST PRIOR TO RETIRING) Rx# [id number] Last Released: 11/11/24 Qty/Days Supply: 90/90 Rx Expiration Date: 07/05/25 Refills Remainin OUTPT ENALAPRIL MALEATE 5MG TAB (Status = Active) TAKE ONE TABLET BY MOUTH TWICE A DAY FOR HIGH BLOOD PRESSURE Rx# [id number] Last Released: 02/01/25 Qty/Days Supply: 180/ Rx Expiration Date: 07/05/25 Refills Remainin Indication: FOR HIGH BLOOD PRESSURE OUTPT FAMOTIDINE 20MG TAB (Status = Active) TAKE ONE TABLET BY MOUTH TWICE A DAY TO LOWER STOMACH ACID Rx# [id number] Last Released: 03/05/25 Qty/Days Supply: 180/ Rx Expiration Date: 06/07/25 Refills Remainin OUTPT GABAPENTIN 100MG CAP (Status = Active) TAKE TWO CAPSULES BY MOUTH THREE TIMES A DAY Rx# [id number] Last Released: 03/05/25 Qty/Days Supply: 180/30 Rx Expiration Date: 07/26/25 Refills Remainin OUTPT KETOCONAZOLE 2% CREAM (Status = ) APPLY SPARINGLY TO AFFECTED AREA(S) TWICE A DAY (EXTERNAL USE ONLY) Rx# [id number] Last Released: 04/17/24 Qty/Days Supply: 60/30 Rx Expiration Date: 03/02/25 Refills Remainin Non-VA MULTIVITAMIN/MINERALS CAP/TAB TAKE 1 CAP/TAB BY MOUTH ONCE A DAY Patient wants to buy from Non-VA pharmacy. Medication prescribed by Non-VA provider. OUTPT POLYETHYLENE GLYCOL 3350 ORAL PWDR (Status = Active) MIX AND DRINK 1 CAPFUL BY MOUTH ONCE A DAY TO PREVENT CONSTIPATION (MEASURE WITH CAP AND MIX IN 8 OZ OF WATER) Rx# [id number] Last Released: 03/07/25 Qty/Days Supply: 510/30 Rx Expiration Date: 07/05/25 Refills Remainin OUTPT SIMVASTATIN 80MG TAB (Status = Active) TAKE ONE-HALF TABLET BY MOUTH EVERY EVENING TO LOWER CHOLESTEROL (REPORT ANY MUSCLE PAIN OR WEAKNESS) THIS TABLET IS TO BE CUT IN HALF FOR YOUR DOSE Rx# [id number] Last Released: 11/07/24 Qty/Days Supply: Rx Expiration Date: 07/05/25 Refills Remainin SUPPLIES PHARMACY TERMS AND POSSIBLE PATIENT ACTIONS INPT = [place] inpatient order IV = [place] intravenous medication OUTPT = [place] outpatient prescription PHARMACY POSSIBLE PATIENT TERMS EXPLANATION ACTIONS -------- ----- ACTIVE A prescription that can be If you have refills, filled at the local [place] pharmacy. you may request a refill of this prescription from your [place] pharmacy. CLINIC A medication you received during If you have questions a visit to a [place] clinic or about this medication emergency department. contact your [place] healthcare team. DISCONTINUED A prescription your provider has Contact your [place] stopped. It is no longer healthcare team if you available to be sent to you or need more of this picked up at the [place] pharmacy medication. window. A prescription which is too old Contact your [place] to fill. This does not refer to [...] the VA. Or, it may be an [id number] (OTC), herbal, dietary supplements or sample medication. [...] An active prescription that is Contact your [place] not scheduled to be filled yet. pharmacy if you need You should receive it before this medication now. you run out. Medication list reviewed with Patient Patient/Caregiver reports taking meds other than as directed/ordered: not taking Donepezil IS PATIENT TAKING ANY OVER THE COUNTER MEDICATIONS, SUCH VITAMINS OR HERBAL SUPPLEMENTS, INCLUDING ANY MEDICATIONS PRESCRIBED BY ANOTHER PHYSICIAN? No Does patient have any new allergies to report since last visit? NO VITALS: TEMPERATURE: 97.8 F [36.6 C] (11/02/2024 [...] Now let us serve you. At the [facility], we strive to provide you with exceptional [...] Not At All SPIRITUAL ASSESSMENT: Are there hindu practices or spiritual concerns you want the trimmer climber, your physician, and other health care team members to immediately know about? No Patient advised to call the clinic for any concerns, questions, or symptoms. Patient and/or caregiver verbalized understanding of plan of care. /deisy/ MARLENI SERNA CBZOILA Signed: 03/23/2025 10:40 RENETTA MEDEROS NM [facility]
--- OUTSIDE RECORDS SUMMARY | 2025-06-03 00:56 | XMS_ITS | Continuity of Care Document ---
Author Name [facility] Organization [facility] Care Team Providers Care Relations Coordinator Name Role Phone [facility] Unavailable Unavailable Problems Combined list of problems from Department of Defense and Veterans Affairs facilities. It does not include entries that were removed or entered in error. Problem Status Onset Date Problem Type Date of Resolution Comments Source Actinic keratosis Active Condition [facility] Basal cell carcinoma of face Active Condition Dec 01 Entered By: GELA MONTENEGRO MY Comment: Nose [place] [facility] Basal cell carcinoma of nose Active Condition Dec 22 Entered By: GELA MONTENEGRO MY Comment: Left side [place] [facility] Bilateral tinnitus Active Condition [place] [facility] Constipation (SNOMED CT 17806982) Active Condition [place] [facility] Dementia Active Condition [facility] Erectile dysfunction Active Condition [place] [facility] Exposure to potentially hazardous substance Active Condition [facility] - Gastro-esophageal reflux disease (SNOMED CT 469653010) Active Condition [place] [facility] HLD - Hyperlipidemia (SNOMED CT 39476656) Active Condition [place] [facility] HTN - Hypertension (SNOMED CT 80563997) Active Condition [place] [facility] IBS - Irritable bowel syndrome Active Condition [place] [facility] Obstructive sleep apnea Active Condition [place] [facility] Prediabetes Active Condition [place] [facility] Ptosis Active Condition May 26 Entered By: GELA MONTENEGRO MY Comment: bilateral [place] [facility] Seizure Active Condition Jun 26 Entered By: GELA MONTENEGRO MY Comment: Seizure-lik e episodes [place] [facility] Sensorineural hearing loss of bilateral ears Active Condition [place] [facility] Tinea corporis Active Condition [place] [facility] Depression (SNOMED CT 83752323) Inactive Condition 07/16/2021 [place] [facility] Fibromyalgia * (ICD-9-CM 729.1) Inactive Condition 02/09/2018 [place] [facility] Hematuria Inactive Condition 07/17/2021 [facility] Hyperglycemia * (ICD-9-CM 790.29) Inactive Condition 02/09/2018 [place] [facility] Hyperkalemia Inactive Condition 07/14/2022 [facility] Laboratory Examination Ordered as part of a Routine General Medical Examination Inactive Condition 02/09/2018 [place] [facility] Lesion of lip (SNOMED CT 752075622) Inactive Condition 02/09/2018 [facility] Rosacea * (ICD-9-CM 695.3) Inactive Condition 02/09/2018 [place] [facility] Routine General Medical Examination at a Health Care Facility * (ICD-9-CM V70.0) Inactive Condition 02/09/2018 [place] [facility] VACCINATION FOR TD-DT - Tetanus-diphtheria [td] [dt] (ICD-9-CM V06.5) Inactive Condition 07/08/2021 [facility] Vision, Subnormal * Inactive Condition 02/09/2018 [facility] Diagnosis: ICD-10-CM F03.90 Unsp dementia, unsp severity, without beh/psych/mood/anx Active Diagnosis [facility] Diagnosis: ICD-10-CM G47.51 Confusional arousals Active Diagnosis [facility] Diagnosis: ICD-10-CM H93.13 Tinnitus, bilateral Active Diagnosis [facility] Diagnosis: ICD-10-CM H61.20 Impacted cerumen, unspecified ear [facility] Diagnosis: ICD-10-CM I10 Essential (primary) hypertension Active Diagnosis [facility] Diagnosis: ICD-10-CM A88.1 Epidemic vertigo Active Diagnosis [facility] Diagnosis: ICD-10-CM R42 Dizziness and giddiness Active Diagnosis [facility] Diagnosis: ICD-10-CM G47.33 Obstructive sleep apnea (adult) (pediatric) [facility] Diagnosis: ICD-10-CM Z23 Encounter for immunization Active Diagnosis [facility] Medications Combined list of outpatient medications from Department of Defense and Veterans Affairs facilities.Medications provided include 1) outpatient medications from the last 15 months, and 2) patient-reported medications. Medication Details Route Status Patient Instructions Prescription Expires Prescription Number Last Dispense Date Ordering Provider Order Date Order Qty Source ASPIRIN 81MG TAB,CHEWABL E CHEW AND SWALLOW ONE TABLET BY MOUTH ONCE A DAY ORAL ACTIVE NAKUL RIVERIAM R 2018 [facility] CYANOCOBALA MIN 100MCG TAB TAKE ONE TABLET BY MOUTH ONCE A DAY ORAL ACTIVE [place] LLIAM R 2015 [facility] DICYCLOMINE HCL 20MG TAB TAKE ONE TABLET BY MOUTH TWO TIMES A DAY BEFORE MEALS FOR IRRITABL E BOWEL ORAL ACTIVE 07/05/2025 [id number] 5 BOZENA MONTENEGRO [address] [place] [address] [facility] DICYCLOMINE HCL 20MG TAB TAKE ONE TABLET BY MOUTH TWO TIMES A DAY BEFORE MEALS FOR IRRITABL E BOWEL ORAL DISCONT INUED 09/06/2024 [id number] 4 BOZENA MONTENEGRO [address] [place] [address] [facility] DONEPEZIL HCL 10MG TAB TAKE ONE TABLET BY MOUTH AT BEDTIME (JUST PRIOR TO RETIRING ) ORAL DISCONT INUED BY PROVIDE R 07/05/2025 [id number] 5 BOZENA MONTENEGRO [address] [place] [address] [facility] DONEPEZIL HCL 10MG TAB TAKE ONE TABLET BY MOUTH AT BEDTIME (JUST PRIOR TO RETIRING ) ORAL DISCONT INUED 08/05/2024 [id number] 4 BOZENA MONTENEGRO [address] [place] [address] [facility] ENALAPRIL MALEATE 5MG TAB TAKE ONE TABLET BY MOUTH TWICE A DAY FOR HIGH BLOOD PRESSURE ORAL ACTIVE 07/05/2025 [id number] 5 BOZENA MONTENEGRO [address] [place] [address] [facility] ENALAPRIL MALEATE 5MG TAB TAKE ONE TABLET BY MOUTH TWICE A DAY FOR HIGH BLOOD PRESSURE ORAL DISCONT INUED 11/05/2024 [id number] 4 BOZENA MONTENEGRO [address] [place] [address] [facility] FAMOTIDINE 20MG TAB TAKE ONE TABLET BY MOUTH TWICE A DAY TO LOWER STOMACH ACID ORAL ACTIVE 04/05/2026 [id number] 5 MONIGELAMY 2024 180 [facility] FAMOTIDINE 20MG TAB TAKE ONE TABLET BY MOUTH TWICE A DAY TO LOWER STOMACH ACID ORAL DISCONT INUED 06/07/2025 [id number] 5 MONI BOZENA 2023 180 [facility] FAMOTIDINE 20MG TAB TAKE ONE TABLET BY MOUTH TWICE A DAY TO LOWER STOMACH ACID ORAL DISCONT INUED 10/05/2024 [id number] 4 [facility]23 180 [facility] FISH OIL 1000MG (500MG DHA/EPA) CAP,ORAL TAKE TWO CAPSULES BY MOUTH TWICE A DAY ORAL DISCONT INUED 09/06/2024 [id number] 4 MONI BOZENA 2022 400 [facility] GABAPENTIN 100MG CAP TAKE TWO CAPSULES BY MOUTH THREE TIMES A DAY ORAL ACTIVE 07/26/2025 [id number] ROSE POSADA 2023 180 [place] [facility] GABAPENTIN 100MG CAP TAKE TWO CAPSULES BY MOUTH THREE TIMES A DAY ORAL DISCONT INUED 07/05/2025 [id number] 4 BOZENA MONTENEGRO 2023 180 [facility] GABAPENTIN 100MG CAP TAKE TWO CAPSULES BY MOUTH THREE TIMES A DAY ORAL DISCONT INUED 01/25/2025 [id number] ROSE POSADA 2023 180 [place] [facility] KETOCONAZOL E 2% CREAM,TOP APPLY SPARINGL Y TO AFFECTED AREA(S) TWICE A DAY (EXTERNA L USE ONLY) TOPICA L 03/02/2025 [id number] 4 LEAH MOTTA 2023 60 [place] [facility] MECLIZINE HCL 25MG TAB,CHEWABL E CHEW AND SWALLOW ONE TABLET BY MOUTH EVERY 6 HOURS NEEDED FOR VERTIGO CHEWABLE TABLETS MAY BE CHEWED OR SWALLOWE D WHOLE. MAY CAUSE DROWSINE SS. ORAL 12/02/2024 [id number] 5 MONIGELAMY 2024 30 [facility] MEMANTINE HCL 5MG TAB TAKE ONE TABLET BY MOUTH TWICE A DAY FOR DEMENTIA ORAL ACTIVE 03/24/2026 [id number] 5 GELA MONTENEGROMY 2024 180 [facility] MULTIVITAMI NS W/MINERALS CAP/TAB TAKE 1 CAP/TAB BY MOUTH ONCE A DAY ORAL ACTIVE [place]IVER R 2018 [facility] POLYETHYLEN E GLYCOL 3350 PWDR,ORAL MIX AND DRINK 1 CAPFUL BY MOUTH ONCE A DAY TO PREVENT CONSTIPA TION (MEASURE WITH CAP AND MIX IN 8 OZ OF WATER) ORAL ACTIVE 07/05/2025 [id number] 5 GELA MONTENEGROMY 2023 510 [facility] POLYETHYLEN E GLYCOL 3350 PWDR,ORAL MIX AND DRINK 1 CAPFUL BY MOUTH ONCE A DAY TO PREVENT CONSTIPA TION (MEASURE WITH CAP AND MIX IN 8 OZ OF WATER) ORAL DISCONT INUED 08/05/2024 [id number] 4 BOZENA MONTENEGRO 2022 510 [facility] SILDENAFIL CITRATE 100MG TAB TAKE ONE TABLET BY MOUTH ONE HOUR PRIOR TO SEXUAL ACTIVITY FOR ERECTILE DYSFUNCT ION NEEDED - LIMIT 6 DOSES PER 30 DAYS ORAL DISCONT INUED BY PROVIDE R 07/13/2024 [id number] MONIBOZENA SHOOK 2022 18 [facility] SIMVASTATIN 80MG TAB TAKE ONE-HALF TABLET BY MOUTH EVERY EVENING TO LOWER CHOLESTE ROL (REPORT ANY MUSCLE PAIN OR WEAKNESS ) THIS TABLET IS TO BE CUT IN HALF FOR YOUR DOSE ORAL ACTIVE 07/05/2025 [id number] 5 BOZENA MONTENEGRO 2023 45 [facility] SIMVASTATIN 80MG TAB TAKE ONE-HALF TABLET BY MOUTH EVERY EVENING TO LOWER CHOLESTE ROL (REPORT ANY MUSCLE PAIN OR WEAKNESS ) THIS TABLET IS TO BE CUT IN HALF FOR YOUR DOSE ORAL DISCONT INUED 09/06/2024 [id number] 4 BOZENA MONTENEGRO 2022 45 [facility] Allergies, Adverse Reactions, Alerts Combined list of allergies from Department of Defense and Veterans Affairs facilities. It does not include entries that were removed or entered in error. Substance Category Reaction Severity Reaction type Status Date Reported Comments Source BENADRYL Propensity to adverse reactions to drug (finding) Urticaria, Eruption active 1 [facility] PRILOSEC 20MG CAPSULE Propensity to adverse reactions to drug (finding) Eruption active 1 [facility] Immunizations Combined list of available immunizations from the Department of [facility] and Veterans Affairs facilities. Immunization Series Date Given Administered By Site Reaction Lot Number CVX Code Drug Furniture Builder Status Comments Source COVID-19 (MODERNA), MRNA, LNP-S, PF, 50 MCG/0.5 ML (AGES 12+ YEARS) 7 2023 312 complet ed HISTORICA L INFORMATI ON - FROM OTHER REGISTRY, [facility] INFLUENZA, HIGH-DOSE, TRIVALENT, PF 2023 135 complet ed HISTORICA L INFORMATI ON - FROM OTHER REGISTRY, [facility] COVID-19 (MODERNA), MRNA, LNP-S, PF, 50 MCG/0.5 ML (AGES 12+ YEARS) 6 2022 312 complet ed HISTORICA L INFORMATI ON - FROM OTHER REGISTRY, [facility] INFLUENZA, HIGH-DOSE, QUADRIVALENT, PF 2022 197 complet ed HISTORICA L INFORMATI ON - FROM OTHER REGISTRY, [facility] COVID-19 (MODERNA), MRNA, LNP-S, BIVALENT BOOSTER, PF, 50 MCG/0.5 ML OR 25MCG/0.25 ML DOSE 2021 229 complet ed Booster for Series, HISTORICA L INFORMATI ON - FROM PATIENT'S WRITTEN RECORD, [facility] COVID-19 (MODERNA), MRNA, LNP-S, BIVALENT, PF, 50 MCG/0.5 ML OR 25MCG/0.25 ML DOSE 5 2021 229 complet ed HISTORICA L INFORMATI ON - FROM OTHER REGISTRY, [facility] INFLUENZA VACCINE, QUADRIVALENT, ADJUVANTED 2021 205 complet ed [place] [facility] TDAP 2 2021 115 complet ed HISTORICA L INFORMATI ON - FROM OTHER REGISTRY, [facility] COVID-19 (MODERNA), MRNA, LNP-S, PF, 100 MCG/0.5ML DOSE OR 50 MCG/0.25ML DOSE 4 2021 207 complet ed HISTORICA L INFORMATI ON - FROM OTHER REGISTRY, [facility] COVID-19 (MODERNA), MRNA, LNP-S, PF, 100 MCG/0.5ML DOSE OR 50 MCG/0.25ML DOSE 3 2020 207 complet ed HISTORICA L INFORMATI ON - FROM OTHER REGISTRY, [facility] INFLUENZA, INJECTABLE, QUADRIVALENT, PRESERVATIVE FREE 2020 150 complet ed [place] [facility] COVID-19 (MODERNA), MRNA, LNP-S, PF, 100 MCG/0.5ML DOSE OR 50 MCG/0.25ML DOSE 2 2020 207 complet ed HISTORICA L INFORMATI ON - FROM OTHER REGISTRY, [facility] COVID-19 (MODERNA), MRNA, LNP-S, PF, 100 MCG/0.5ML DOSE OR 50 MCG/0.25ML DOSE 1 2020 207 complet ed HISTORICA L INFORMATI ON - FROM OTHER REGISTRY, [facility] ZOSTER RECOMBINANT 3 2020 187 complet ed HISTORICA L INFORMATI ON - FROM OTHER REGISTRY, [facility] ZOSTER RECOMBINANT 2 2019 187 complet ed HISTORICA L INFORMATI ON - FROM OTHER REGISTRY, [facility] INFLUENZA, INJECTABLE, QUADRIVALENT, PRESERVATIVE FREE 2019 150 complet ed [place] [facility] INFLUENZA, INJECTABLE, QUADRIVALENT, PRESERVATIVE FREE 2018 150 complet ed [place] [facility] INFLUENZA, SEASONAL, INJECTABLE, PRESERVATIVE FREE 2017 140 complet ed Left Deltoid [place] [facility] INFLUENZA, SEASONAL, INJECTABLE, PRESERVATIVE FREE 2016 140 complet ed Left Deltoid [place] [facility] INFLUENZA, SEASONAL, INJECTABLE, PRESERVATIVE FREE 2015 140 complet ed [place] [facility] PNEUMOCOCCAL POLYSACCHARID E PPV23 2 2015 33 complet ed HISTORICA L INFORMATI ON - FROM OTHER REGISTRY, [facility] INFLUENZA, SPLIT VIRUS, QUADRIVALENT, PF 8 2014 150 complet ed HISTORICA L INFORMATI ON - FROM OTHER REGISTRY, [facility] INFLUENZA, UNSPECIFIED FORMULATION 2014 88 complet ed [facility] PNEUMOCOCCAL CONJUGATE PCV 13 1 2014 133 complet ed HISTORICA L INFORMATI ON - FROM OTHER REGISTRY, [facility] INFLUENZA, SPLIT VIRUS, QUADRIVALENT, PF 7 2013 150 complet ed HISTORICA L INFORMATI ON - FROM OTHER REGISTRY, [facility] INFLUENZA, UNSPECIFIED FORMULATION 2013 88 complet ed [facility] ZOSTER LIVE 1 2013 121 complet ed HISTORICA L INFORMATI ON - FROM OTHER REGISTRY, [facility] INFLUENZA, SPLIT VIRUS, TRIVALENT, PF 6 2012 140 complet ed HISTORICA L INFORMATI ON - FROM OTHER REGISTRY, [facility] INFLUENZA, UNSPECIFIED FORMULATION 2012 88 complet ed [facility] TDAP 1 2012 115 complet ed HISTORICA L INFORMATI ON - FROM OTHER REGISTRY, [facility] INFLUENZA, SPLIT (INCL. PURIFIED SURFACE ANTIGEN) 5 2011 15 complet ed HISTORICA L INFORMATI ON - FROM OTHER REGISTRY, [facility] INFLUENZA, UNSPECIFIED FORMULATION 2011 88 complet ed [facility] INFLUENZA, SPLIT (INCL. PURIFIED SURFACE ANTIGEN) 4 2010 15 complet ed HISTORICA L INFORMATI ON - FROM OTHER REGISTRY, [facility] PNEUMOCOCCAL, UNSPECIFIED FORMULATION 2010 109 complet ed HISTORICA L INFORMATI ON - FROM OTHER REGISTRY, [facility] INFLUENZA, SPLIT (INCL. PURIFIED SURFACE ANTIGEN) 3 2009 15 complet ed HISTORICA L INFORMATI ON - FROM OTHER REGISTRY, [facility] INFLUENZA, UNSPECIFIED FORMULATION 2008 88 complet ed [facility] INFLUENZA, SPLIT (INCL. PURIFIED SURFACE ANTIGEN) 2 2007 15 complet ed HISTORICA L INFORMATI ON - FROM OTHER REGISTRY, [facility] INFLUENZA, SPLIT (INCL. PURIFIED SURFACE ANTIGEN) 1 2006 15 complet ed HISTORICA L INFORMATI ON - FROM OTHER REGISTRY, [facility] Results Combined list of recent chemistry, hematology and other laboratory results from Department of Defense and Veterans Affairs, ranging from 15 months to all on record, depending upon the facility. Order Name Results Value Reference Range Date Interpretation Specimen Comments Source CBC LEUKOCYTES [#/VOLUME] IN BLOOD BY AUTOMATED COUNT 6.8 10*3/u L 3.6 - 11.2 06/28 Specimen Type: BLOOD No comment entered. Ordering Provider: BOZENA MONTENEGRO Report Released Date/Time : Jul 08, 2023 09:42 AM Reporting Lab: [place] [facility] [address] [place] [address] Performin g Lab: [place] [facility] [address] [address] [facility] CBC ERYTHROCYTES [#/VOLUME] IN BLOOD BY AUTOMATED COUNT 5.54 10*6/u L 4.10 - 5.70 06/28 Specimen Type: BLOOD No comment entered. Ordering Provider: BOZENA MONTENEGRO Report Released Date/Time : Jul 08, 2023 09:42 AM Reporting Lab: [place] [facility] [address] [place] [address] Performin g Lab: [place] [facility] [address] [address] [facility] CBC HEMOGLOBIN [MASS/VOLUME] IN BLOOD 16.6 g/dL 13.1 - 16.8 06/28 Specimen Type: BLOOD No comment entered. Ordering Provider: BOZENA MONTENEGRO Report Released Date/Time : Jul 08, 2023 09:42 AM Reporting Lab: [place] [facility] [address] [address] Performin g Lab: [place] [facility] [address] [address] [facility] CBC HEMATOCRIT [VOLUME FRACTION] OF BLOOD 48.9 38.2 - 48.4 06/28 H Specimen Type: BLOOD No comment entered. Ordering Provider: BOZENA MONTENEGRO Report Released Date/Time : Jul 08, 2023 09:42 AM Reporting Lab: [place] [facility] [address] [address] Performin g Lab: [place] [facility] [address] [address] [facility] CBC MCV [ENTITIC VOLUME] BY AUTOMATED COUNT 88.3 fL 80.0 - 100.0 06/28 Specimen Type: BLOOD No comment entered. Ordering Provider: BOZENA MONTENEGRO Report Released Date/Time : Jul 08, 2023 09:42 AM Reporting Lab: [place] [facility] [address] [address] Performin g Lab: [place] [facility] [address] [place] [phone] 8 [facility] CBC MCH [ENTITIC MASS] BY AUTOMATED COUNT 30.0 pg 27.0 - 34.0 06/28 Specimen Type: BLOOD No comment entered. Ordering Provider: BOZENA MONTENEGRO Report Released Date/Time : Jul 08, 2023 09:42 AM Reporting Lab: [place] [facility] [address] [address] Performin g Lab: [place] [facility] [address] [address] [facility] CBC MCHC [MASS/VOLUME] BY AUTOMATED COUNT 33.9 g/dL 33.0 - 36.0 06/28 Specimen Type: BLOOD No comment entered. Ordering Provider: BOZENA MONTENEGRO Report Released Date/Time : Jul 08, 2023 09:42 AM Reporting Lab: [place] [facility] [address] [address] Performin g Lab: [place] [facility] [address] [address] [facility] CBC PLATELETS [#/VOLUME] IN BLOOD BY AUTOMATED COUNT 161 10*3/u L 150 - 400 06/28 Specimen Type: BLOOD No comment entered. Ordering Provider: BOZENA MONTENEGRO Report Released Date/Time : Jul 08, 2023 09:42 AM Reporting Lab: [place] [facility] [address] [address] Performin g Lab: [place] [facility] [address] [address] [facility] CBC PLATELET MEAN VOLUME [ENTITIC VOLUME] IN BLOOD BY AUTOMATED COUNT 10.9 fL 7.5 - 11.2 06/28 Specimen Type: BLOOD No comment entered. Ordering Provider: BOZENA MONTENEGRO Report Released Date/Time : Jul 08, 2023 09:42 AM Reporting Lab: [place] [facility] [address] [address] Performin g Lab: [place] [facility] [address] [address] [facility] CBC ERYTHROCYTE DISTRIBUTION WIDTH [RATIO] BY AUTOMATED COUNT 12.6 11.8 - 15.1 06/28 Specimen Type: BLOOD No comment entered. Ordering Provider: BOZENA MONTENEGRO Report Released Date/Time : Jul 08, 2023 09:42 AM Reporting Lab: [place] [facility] [address] [address] Performin g Lab: [place] [facility] [address] [address] [facility] CBC LYMPHOCYTES/1 00 LEUKOCYTES IN BLOOD BY AUTOMATED COUNT 30.1 06/28 Specimen Type: BLOOD No comment entered. Ordering Provider: BOZENA MONTENEGRO Report Released Date/Time : Jul 08, 2023 09:42 AM Reporting Lab: [place] [facility] [address] [address] Performin g Lab: [place] [facility] [address] [address] [facility] CBC MONOCYTES/100 LEUKOCYTES IN BLOOD BY AUTOMATED COUNT 10.8 06/28 Specimen Type: BLOOD No comment entered. Ordering Provider: BOZENA MONTENEGRO Report Released Date/Time : Jul 08, 2023 09:42 AM Reporting Lab: [place] [facility] [address] [address] Performin g Lab: [place] [facility] [address] [address] [facility] CBC NEUTROPHILS/1 00 LEUKOCYTES IN BLOOD BY AUTOMATED COUNT 55.0 06/28 Specimen Type: BLOOD No comment entered. Ordering Provider: BOZENA MONTENEGRO Report Released Date/Time : Jul 08, 2023 09:42 AM Reporting Lab: [place] [facility] [address] [address] Performin g Lab: [place] [facility] [address] [address] [facility] CBC EOSINOPHILS/1 00 LEUKOCYTES IN BLOOD BY AUTOMATED COUNT 2.8 06/28 Specimen Type: BLOOD No comment entered. Ordering Provider: BOZENA MONTENEGRO Report Released Date/Time : Jul 08, 2023 09:42 AM Reporting Lab: [place] [facility] [address] [address] Performin g Lab: [place] [facility] [address] [address] [facility] CBC BASOPHILS/100 LEUKOCYTES IN BLOOD BY AUTOMATED COUNT 1.0 06/28 Specimen Type: BLOOD No comment entered. Ordering Provider: BOZENA MONTENEGRO Report Released Date/Time : Jul 08, 2023 09:42 AM Reporting Lab: [place] [facility] [address] [address] Performin g Lab: [place] [facility] [address] [place] [address] [facility] CBC LYMPHOCYTES [#/VOLUME] IN BLOOD BY AUTOMATED COUNT 2.03 10*3/u L 0.77 - 4.50 06/28 Specimen Type: BLOOD No comment entered. Ordering Provider: BOZENA MONTENEGRO Report Released Date/Time : Jul 08, 2023 09:42 AM Reporting Lab: [place] [facility] [address] [place] [address] Performin g Lab: [place] [facility] [address] [place] [address] [facility] CBC MONOCYTES [#/VOLUME] IN BLOOD BY AUTOMATED COUNT 0.73 10*3/u L 0.19 - 0.8 06/28 Specimen Type: BLOOD No comment entered. Ordering Provider: BOZENA MONTENEGRO Report Released Date/Time : Jul 08, 2023 09:42 AM Reporting Lab: [place] [facility] [address] [place] [address] Performin g Lab: [place] [facility] [address] [place] [address] [facility] CBC NEUTROPHILS [#/VOLUME] IN BLOOD BY AUTOMATED COUNT 3.71 10*3/u L 2.10 - 8.00 06/28 Specimen Type: BLOOD No comment entered. Ordering Provider: BOZENA MONTENERGO Report Released Date/Time : Jul 08, 2023 09:42 AM Reporting Lab: [place] [facility] [address] [address] 8 Performin g Lab: [place] [facility] [address] [address] 8 [facility] CBC EOSINOPHILS [#/VOLUME] IN BLOOD BY AUTOMATED COUNT 0.19 10*3/u L 0.00 - 0.60 06/28 Specimen Type: BLOOD No comment entered. Ordering Provider: BOZENA MONTENEGRO Report Released Date/Time : Jul 08, 2023 09:42 AM Reporting Lab: [place] [facility] [address] [address] 8 Performin g Lab: [place] [facility] [address] [place] [address] 8 [facility] CBC BASOPHILS [#/VOLUME] IN BLOOD BY AUTOMATED COUNT 0.07 10*3/u L 0.00 - 0.20 06/28 Specimen Type: BLOOD No comment entered. Ordering Provider: BOZENA MONTENEGRO Report Released Date/Time : Jul 08, 2023 09:42 AM Reporting Lab: [place] [facility] [address] [address] 8 Performin g Lab: [place] [facility] [address] [address] 8 [facility] CBC IMMATURE GRANULOCYTES/ 100 LEUKOCYTES IN BLOOD BY AUTOMATED COUNT 0.3 06/28 Specimen Type: BLOOD No comment entered. Ordering Provider: BOZENA MONTENEGRO Report Released Date/Time : Jul 08, 2023 09:42 AM Reporting Lab: [place] [facility] [address] [address] 8 Performin g Lab: [place] [facility] [address] [address] 8 [facility] CBC IMMATURE GRANULOCYTES [#/VOLUME] IN BLOOD BY AUTOMATED COUNT 0.02 10*3/u L 0.00 - 0.05 06/28 Specimen Type: BLOOD No comment entered. Ordering Provider: BOZENA MONTENEGRO Report Released Date/Time : Jul 08, 2023 09:42 AM Reporting Lab: [place] [facility] [address] [address] 8 Performin g Lab: [place] [facility] [address] [address] 8 [facility] COMPREHENSI VE METABOLIC PANEL CREATININE [MASS/VOLUME] IN SERUM OR PLASMA 1.18 mg/dL 0.7 - 1.3 06/28 Specimen Type: PLASMA No comment entered. Ordering Provider: BOZENA MONTENEGRO Report Released Date/Time : Jul 08, 2023 09:42 AM Reporting Lab: [place] [facility] [address] [address] 8 Performin g Lab: [place] [facility] [address] [address] 8 [facility] COMPREHENSI VE METABOLIC PANEL UREA NITROGEN [MASS/VOLUME] IN SERUM OR PLASMA 12 mg/dL - 06/28 Specimen Type: PLASMA No comment entered. Ordering Provider: BOZENA MONTENEGRO Report Released Date/Time : Jul 08, 2023 09:42 AM Reporting Lab: [place] [facility] [address] [address] 8 Performin g Lab: [place] [facility] [address] [address] 8 [place] [facility] COMPREHENSI VE METABOLIC PANEL GLUCOSE [MASS/VOLUME] IN SERUM OR PLASMA 109 mg/dL 72 - 99 06/28 H Specimen Type: PLASMA No comment entered. Ordering Provider: BOZENA MONTENEGRO Report Released Date/Time : Jul 08, 2023 09:42 AM Reporting Lab: [place] [facility] [address] [address] 8 Performin g Lab: [place] [facility] [address] [address] 8 [facility] COMPREHENSI VE METABOLIC PANEL SODIUM [MOLES/VOLUME ] IN SERUM OR PLASMA 136 meq/L 136 - 145 06/28 Specimen Type: PLASMA No comment entered. Ordering Provider: BOZENA MONTENEGRO Report Released Date/Time : Jul 08, 2023 09:42 AM Reporting Lab: [place] [facility] [address] [address] 8 Performin g Lab: [place] [facility] [address] [address] 8 [facility] COMPREHENSI VE METABOLIC PANEL POTASSIUM [MOLES/VOLUME ] IN SERUM OR PLASMA 4.5 meq/L 3.5 - 5 06/28 Specimen Type: PLASMA No comment entered. Ordering Provider: BOZENA MONTENEGRO Report Released Date/Time : Jul 08, 2023 09:42 AM Reporting Lab: [place] [facility] [address] [address] 8 Performin g Lab: [place] [facility] [address] [address] 8 [facility] COMPREHENSI VE METABOLIC PANEL CHLORIDE [MOLES/VOLUME ] IN SERUM OR PLASMA 104 meq/L 98 - 107 06/28 Specimen Type: PLASMA No comment entered. Ordering Provider: BOZENA MONTENEGRO Report Released Date/Time : Jul 08, 2023 09:42 AM Reporting Lab: [place] [facility] [address] [address] 8 Performin g Lab: [place] [facility] [address] [address] 8 [place] [facility] COMPREHENSI VE METABOLIC PANEL CARBON DIOXIDE, TOTAL [MOLES/VOLUME ] IN SERUM OR PLASMA 25 meq/L 22 - 31 06/28 Specimen Type: PLASMA No comment entered. Ordering Provider: BOZENA MONTENEGRO Report Released Date/Time : Jul 08, 2023 09:42 AM Reporting Lab: [place] [facility] [address] [address] 8 Performin g Lab: [place] [facility] [address] [address] 8 [facility] COMPREHENSI VE METABOLIC PANEL CALCIUM [MASS/VOLUME] IN SERUM OR PLASMA 9.7 mg/dL 8.4 - 10.4 06/28 Specimen Type: PLASMA No comment entered. Ordering Provider: BOZENA MONTENEGRO Report Released Date/Time : Jul 08, 2023 09:42 AM Reporting Lab: [place] [facility] [address] [address] 8 Performin g Lab: [place] [facility] [address] [address] 8 [facility] COMPREHENSI VE METABOLIC PANEL PROTEIN [MASS/VOLUME] IN SERUM OR PLASMA 7.7 g/dL 6 - 8.6 06/28 Specimen Type: PLASMA No comment entered. Ordering Provider: BOZENA MONTENEGRO Report Released Date/Time : Jul 08, 2023 09:42 AM Reporting Lab: [place] [facility] [address] [address] 8 Performin g Lab: [place] [facility] [address] [address] 8 [facility] COMPREHENSI VE METABOLIC PANEL ALBUMIN [MASS/VOLUME] IN SERUM OR PLASMA 4.4 g/dL 3.4 - 5 06/28 Specimen Type: PLASMA No comment entered. Ordering Provider: BOZENA MONTENEGRO Report Released Date/Time : Jul 08, 2023 09:42 AM Reporting Lab: [place] [facility] [address] [address] 8 Performin g Lab: [place] [facility] [address] [address] 8 [facility] COMPREHENSI VE METABOLIC PANEL BILIRUBIN.TOT AL [MASS/VOLUME] IN SERUM OR PLASMA 0.4 mg/dL 0.2 - 1.2 06/28 Specimen Type: PLASMA No comment entered. Ordering Provider: BOZENA MONTENEGRO Report Released Date/Time : Jul 08, 2023 09:42 AM Reporting Lab: [place] [facility] [address] [address] 8 Performin g Lab: [place] [facility] [address] [address] 8 [facility] COMPREHENSI VE METABOLIC PANEL ALKALINE PHOSPHATASE [ENZYMATIC ACTIVITY/VOLU ME] IN SERUM OR PLASMA 37 U/L 40 - 150 06/28 L Specimen Type: PLASMA No comment entered. Ordering Provider: BOZENA MONTENEGRO Report Released Date/Time : Jul 08, 2023 09:42 AM Reporting Lab: [place] [facility] [address] [address] 8 Performin g Lab: [place] [facility] [address] [address] 8 [facility] COMPREHENSI VE METABOLIC PANEL ASPARTATE AMINOTRANSFER ASE [ENZYMATIC ACTIVITY/VOLU ME] IN SERUM OR PLASMA 33 U/L 5 - 34 06/28 Specimen Type: PLASMA No comment entered. Ordering Provider: BOZENA MONTENEGRO Report Released Date/Time : Jul 08, 2023 09:42 AM Reporting Lab: [place] [facility] [address] [address] 8 Performin g Lab: [place] [facility] [address] [address] 8 [facility] COMPREHENSI VE METABOLIC PANEL ALANINE AMINOTRANSFER ASE [ENZYMATIC ACTIVITY/VOLU ME] IN SERUM OR PLASMA 35 U/L 8 - 40 06/28 Specimen Type: PLASMA No comment entered. Ordering Provider: BOZENA MONETNEGRO Report Released Date/Time : Jul 08, 2023 09:42 AM Reporting Lab: [place] [facility] [address] [address] 8 Performin g Lab: [place] [facility] [address] [address] 8 [facility] COMPREHENSI VE METABOLIC PANEL GLOMERULAR FILTRATION RATE/1.73 SQ M.PREDICTED [VOLUME RATE/AREA] IN SERUM, PLASMA OR BLOOD BY CREATININE-BA SED FORMULA (CKD-EPI 2020) 64 06/28 Specimen Type: PLASMA No comment entered. Ordering Provider: BOZENA MONTENEGRO Report Released Date/Time : Jul 08, 2023 09:42 AM Reporting Lab: [place] [facility] [address] [address] 8 Performin g Lab: [place] [facility] [address] [address] 8 [facility] HGA1C HEMOGLOBIN A1C/HEMOGLOBI N.TOTAL IN BLOOD 6.2 4.0 - 6.0 06/28 H Specimen Type: BLOOD No comment entered. Ordering Provider: BOZENA MONTENEGRO Report Released Date/Time : Jul 08, 2023 09:42 AM Reporting Lab: [place] [facility] [address] [address] 8 Performin g Lab: [place] [facility] [address] [address] 8 [facility] CHOLESTEROL PANEL (PB) CHOLESTEROL [MASS/VOLUME] IN SERUM OR PLASMA 137 mg/dL 0 - 200 06/28 Specimen Type: PLASMA No comment entered. Ordering Provider: BOZENA MONTENEGRO Report Released Date/Time : Jul 08, 2023 09:42 AM Reporting Lab: [place] [facility] [address] [address] 8 Performin g Lab: [place] [facility] [address] [address] 8 [facility] CHOLESTEROL PANEL (PB) TRIGLYCERIDE [MASS/VOLUME] IN SERUM OR PLASMA 206 mg/dL 0 - 150 06/28 H Specimen Type: PLASMA No comment entered. Ordering Provider: BOZENA MONTENEGRO Report Released Date/Time : Jul 08, 2023 09:42 AM Reporting Lab: [place] [facility] [address] [address] 8 Performin g Lab: [place] [facility] [address] [address] 8 [facility] CHOLESTEROL PANEL (PB) CHOLESTEROL IN LDL [MASS/VOLUME] IN SERUM OR PLASMA BY CALCULATION 66.8 mg/dL 06/28 Specimen Type: PLASMA No comment entered. Ordering Provider: BOZENA MONTENEGRO Report Released Date/Time : Jul 08, 2023 09:42 AM Reporting Lab: [place] [facility] [address] [address] 8 Performin g Lab: [place] [facility] [address] [address] 8 [facility] CHOLESTEROL PANEL (PB) CHOLESTEROL IN HDL [MASS/VOLUME] IN SERUM OR PLASMA 29.0 mg/dL 40 06/28 L Specimen Type: PLASMA No comment entered. Ordering Provider: BOZENA MONTENEGRO Report Released Date/Time : Jul 08, 2023 09:42 AM Reporting Lab: [place] [facility] [address] [address] 8 Performin g Lab: [place] [facility] [address] [address] 8 [facility] CHOLESTEROL PANEL (PB) CHOLESTEROL IN HDL/CHOLESTER OL.TOTAL [MASS RATIO] IN SERUM OR PLASMA 21.2 25 06/28 Specimen Type: PLASMA No comment entered. Ordering Provider: BOZENA MONTENEGRO Report Released Date/Time : Jul 08, 2023 09:42 AM Reporting Lab: [place] [facility] [address] [address] 8 Performin g Lab: [place] [facility] [address] [address] 8 [facility] TSH (MA-PB) THYROTROPIN [UNITS/VOLUME ] IN SERUM OR PLASMA 3.374 u[IU]/ mL 0.47 - 5 06/28 Specimen Type: SERUM No comment entered. Ordering Provider: BOZENA MONTENEGRO Report Released Date/Time : Jul 08, 2023 09:42 AM Reporting Lab: [place] [facility] [address] [address] 8 Performin g Lab: [place] [facility] [address] [address] 8 [facility] TESTOSTERON E, TOTAL (PB-MA) TESTOSTERONE [MASS/VOLUME] IN SERUM OR PLASMA 729.0 ng/dL 221.0 - 871.0 07/08 Specimen Type: SERUM No comment entered. Ordering Provider: BOZENA MONTENEGRO Report Released Date/Time : Jul 08, 2023 09:36 AM Reporting Lab: [place] [facility] [address] [address] 8 Performin g Lab: [place] [facility] [address] [address] 8 [facility] COMPREHENSI VE METABOLIC PANEL CREATININE [MASS/VOLUME] IN SERUM OR PLASMA 1.06 mg/dL 0.7 - 1.3 06/25 Specimen Type: PLASMA No comment entered. Ordering Provider: BOZENA MONTENEGRO Report Released Date/Time : Jul 14, 2022 10:19 AM Reporting Lab: [place] [facility] [address] [address] 8 Performin g Lab: [place] [facility] [address] [address] 8 [facility] COMPREHENSI VE METABOLIC PANEL UREA NITROGEN [MASS/VOLUME] IN SERUM OR PLASMA 16 mg/dL 9 - 25 06/25 Specimen Type: PLASMA No comment entered. Ordering Provider: BOZENA MONTENEGRO Report Released Date/Time : Jul 14, 2022 10:19 AM Reporting Lab: [place] [facility] [address] [address] 8 Performin g Lab: [place] [facility] [address] [place] [address] 8 [facility] COMPREHENSI VE METABOLIC PANEL GLUCOSE [MASS/VOLUME] IN SERUM OR PLASMA 101 mg/dL 72 - 99 06/25 H Specimen Type: PLASMA No comment entered. Ordering Provider: BOZENA MONTENEGRO Report Released Date/Time : Jul 14, 2022 10:19 AM Reporting Lab: [place] [facility] [address] [address] 8 Performin g Lab: [place] [facility] [address] [address] 8 [place] [facility] COMPREHENSI VE METABOLIC PANEL SODIUM [MOLES/VOLUME ] IN SERUM OR PLASMA 140 meq/L 136 - 145 06/25 Specimen Type: PLASMA No comment entered. Ordering Provider: BOZENA MONTENEGRO Report Released Date/Time : Jul 14, 2022 10:19 AM Reporting Lab: [place] [facility] [address] [address] 8 Performin g Lab: [place] [facility] [address] [address] 8 [place] [facility] COMPREHENSI VE METABOLIC PANEL POTASSIUM [MOLES/VOLUME ] IN SERUM OR PLASMA 4.8 meq/L 3.5 - 5 06/25 Specimen Type: PLASMA No comment entered. Ordering Provider: BOZENA MONTENEGRO Report Released Date/Time : Jul 14, 2022 10:19 AM Reporting Lab: [place] [facility] [address] [address] 8 Performin g Lab: [place] [facility] [address] [address] 8 [place] [facility] COMPREHENSI VE METABOLIC PANEL CHLORIDE [MOLES/VOLUME ] IN SERUM OR PLASMA 106 meq/L 98 - 107 06/25 Specimen Type: PLASMA No comment entered. Ordering Provider: BOZENA MONTENEGRO Report Released Date/Time : Jul 14, 2022 10:19 AM Reporting Lab: [place] [facility] [address] [address] 8 Performin g Lab: [place] [facility] [address] [address] 8 [place] [facility] COMPREHENSI VE METABOLIC PANEL CARBON DIOXIDE, TOTAL [MOLES/VOLUME ] IN SERUM OR PLASMA 25 meq/L 22 - 31 06/25 Specimen Type: PLASMA No comment entered. Ordering Provider: BOZENA MONTENEGRO Report Released Date/Time : Jul 14, 2022 10:19 AM Reporting Lab: [place] [facility] [address] [address] 8 Performin g Lab: [place] [facility] [address] [address] 8 [place] [facility] COMPREHENSI VE METABOLIC PANEL CALCIUM [MASS/VOLUME] IN SERUM OR PLASMA 9.5 mg/dL 8.4 - 10.4 06/25 Specimen Type: PLASMA No comment entered. Ordering Provider: BOZENA MONTENEGRO Report Released Date/Time : Jul 14, 2022 10:19 AM Reporting Lab: [place] [facility] [address] [address] 8 Performin g Lab: [place] [facility] [address] [address] 8 [facility] COMPREHENSI VE METABOLIC PANEL PROTEIN [MASS/VOLUME] IN SERUM OR PLASMA 7.8 g/dL 6 - 8.6 06/25 Specimen Type: PLASMA No comment entered. Ordering Provider: BOZENA MONTENEGRO Report Released Date/Time : Jul 14, 2022 10:19 AM Reporting Lab: [place] [facility] [address] [address] 8 Performin g Lab: [place] [facility] [address] [address] 8 [facility] COMPREHENSI VE METABOLIC PANEL ALBUMIN [MASS/VOLUME] IN SERUM OR PLASMA 4.5 g/dL 3.4 - 5 06/25 Specimen Type: PLASMA No comment entered. Ordering Provider: BOZENA MONTENEGRO Report Released Date/Time : Jul 14, 2022 10:19 AM Reporting Lab: [place] [facility] [address] [address] 8 Performin g Lab: [place] [facility] [address] [address] 8 [facility] COMPREHENSI VE METABOLIC PANEL BILIRUBIN.TOT AL [MASS/VOLUME] IN SERUM OR PLASMA 0.4 mg/dL 0.2 - 1.2 06/25 Specimen Type: PLASMA No comment entered. Ordering Provider: BOZENA MONTENEGRO Report Released Date/Time : Jul 14, 2022 10:19 AM Reporting Lab: [place] [facility] [address] [address] 8 Performin g Lab: [place] [facility] [address] [address] 8 [facility] COMPREHENSI VE METABOLIC PANEL ALKALINE PHOSPHATASE [ENZYMATIC ACTIVITY/VOLU ME] IN SERUM OR PLASMA 44 U/L 40 - 150 06/25 Specimen Type: PLASMA No comment entered. Ordering Provider: BOZENA MONTENEGRO Report Released Date/Time : Jul 14, 2022 10:19 AM Reporting Lab: [place] [facility] [address] [address] 8 Performin g Lab: [place] [facility] [address] [address] 8 [facility] COMPREHENSI VE METABOLIC PANEL ASPARTATE AMINOTRANSFER ASE [ENZYMATIC ACTIVITY/VOLU ME] IN SERUM OR PLASMA 29 U/L 5 - 34 06/25 Specimen Type: PLASMA No comment entered. Ordering Provider: BOZENA MONTENEGRO Report Released Date/Time : Jul 14, 2022 10:19 AM Reporting Lab: [place] [facility] [address] [address] 8 Performin g Lab: [place] [facility] [address] [address] 8 [facility] COMPREHENSI VE METABOLIC PANEL ALANINE AMINOTRANSFER ASE [ENZYMATIC ACTIVITY/VOLU ME] IN SERUM OR PLASMA 31 U/L 8 - 40 06/25 Specimen Type: PLASMA No comment entered. Ordering Provider: BOZENA MONTENEGRO Report Released Date/Time : Jul 14, 2022 10:19 AM Reporting Lab: [place] [facility] [address] [address] 8 Performin g Lab: [place] [facility] [address] [address] 8 [facility] COMPREHENSI VE METABOLIC PANEL GLOMERULAR FILTRATION RATE/1.73 SQ M.PREDICTED [VOLUME RATE/AREA] IN SERUM, PLASMA OR BLOOD BY CREATININE-BA SED FORMULA (CKD-EPI 2020) 73 06/25 Specimen Type: PLASMA No comment entered. Ordering Provider: BOZENA MONTENEGRO Report Released Date/Time : Jul 14, 2022 10:19 AM Reporting Lab: [place] [facility] [address] [address] Performin g Lab[place] [facility] [address] [address] [facility] CBC LEUKOCYTES [#/VOLUME] IN BLOOD BY AUTOMATED COUNT 6.7 10*3/u L 3.6 - 11.2 06/25 Specimen Type: BLOOD No comment entered. Ordering Provider: BOZENA MONTENEGRO Report Released Date/Time : Jul 14, 2022 10:19 AM Reporting Lab: [place] [facility] [address] [place] [address] Performin g Lab: [place] [facility] [address] [address] [facility] CBC ERYTHROCYTES [#/VOLUME] IN BLOOD BY AUTOMATED COUNT 5.40 10*6/u L 4.10 - 5.70 06/25 Specimen Type: BLOOD No comment entered. Ordering Provider: BOZENA MONTENEGRO Report Released Date/Time : Jul 14, 2022 10:19 AM Reporting Lab: [place] [facility] [address] [address] Performin g Lab: [place] [facility] [address] [address] [facility] CBC HEMOGLOBIN [MASS/VOLUME] IN BLOOD 15.9 g/dL 13.1 - 16.8 06/25 Specimen Type: BLOOD No comment entered. Ordering Provider: BOZENA MONTENEGRO Report Released Date/Time : Jul 14, 2022 10:19 AM Reporting Lab: [place] [facility] [address] [address] Performin g Lab: [place] [facility] [address] [place] [address] [facility] CBC HEMATOCRIT [VOLUME FRACTION] OF BLOOD 48.1 38.2 - 48.4 06/25 Specimen Type: BLOOD No comment entered. Ordering Provider: BOZENA MONTENEGRO Report Released Date/Time : Jul 14, 2022 10:19 AM Reporting Lab: [place] [facility] [address] [address] Performin g Lab: [place] [facility] [address] [address] [facility] CBC MCV [ENTITIC VOLUME] BY AUTOMATED COUNT 89.1 fL 80.0 - 100.0 06/25 Specimen Type: BLOOD No comment entered. Ordering Provider: BOZENA MONTENEGRO Report Released Date/Time : Jul 14, 2022 10:19 AM Reporting Lab: [place] [facility] [address] [address] Performin g Lab: [place] [facility] [address] [address] [facility] CBC MCH [ENTITIC MASS] BY AUTOMATED COUNT 29.4 pg 27.0 - 34.0 06/25 Specimen Type: BLOOD No comment entered. Ordering Provider: BOZENA MONTENEGRO Report Released Date/Time : Jul 14, 2022 10:19 AM Reporting Lab: [place] [facility] [address] [address] Performin g Lab: [place] [facility] [address] [place] [address] [facility] CBC MCHC [MASS/VOLUME] BY AUTOMATED COUNT 33.1 g/dL 33.0 - 36.0 06/25 Specimen Type: BLOOD No comment entered. Ordering Provider: BOZENA MONTENEGRO Report Released Date/Time : Jul 14, 2022 10:19 AM Reporting Lab: [place] [facility] [address] [address] Performin g Lab: [place] [facility] [address] [address] [facility] CBC PLATELETS [#/VOLUME] IN BLOOD BY AUTOMATED COUNT 164 10*3/u L 150 - 400 06/25 Specimen Type: BLOOD No comment entered. Ordering Provider: BOZENA MONTENEGRO Report Released Date/Time : Jul 14, 2022 10:19 AM Reporting Lab: [place] [facility] [address] [address] Performin g Lab: [place] [facility] [address] [address] 8 [facility] CBC PLATELET MEAN VOLUME [ENTITIC VOLUME] IN BLOOD BY AUTOMATED COUNT 11.3 fL 7.5 - 11.2 06/25 H Specimen Type: BLOOD No comment entered. Ordering Provider: BOZENA MONTENEGRO Report Released Date/Time : Jul 14, 2022 10:19 AM Reporting Lab: [place] [facility] [address] [address] Performin g Lab: [place] [facility] [address] [address] [facility] CBC ERYTHROCYTE DISTRIBUTION WIDTH [RATIO] BY AUTOMATED COUNT 12.5 11.8 - 15.1 06/25 Specimen Type: BLOOD No comment entered. Ordering Provider: BZOENA MONTENEGRO Report Released Date/Time : Jul 14, 2022 10:19 AM Reporting Lab: [place] [facility] [address] [address] Performin g Lab: [place] [facility] [address] [address] 8 [facility] CBC LYMPHOCYTES/1 00 LEUKOCYTES IN BLOOD BY AUTOMATED COUNT 34.6 06/25 Specimen Type: BLOOD No comment entered. Ordering Provider: BOZENA MONTENEGRO Report Released Date/Time : Jul 14, 2022 10:19 AM Reporting Lab: [place] [facility] [address] [address] Performin g Lab: [place] [facility] [address] [address] 8 [facility] CBC MONOCYTES/100 LEUKOCYTES IN BLOOD BY AUTOMATED COUNT 8.9 06/25 Specimen Type: BLOOD No comment entered. Ordering Provider: BOZENA MONTENEGRO Report Released Date/Time : Jul 14, 2022 10:19 AM Reporting Lab: [place] [facility] [address] [address] 8 Performin g Lab: [place] [facility] [address] [address] [facility] CBC NEUTROPHILS/1 00 LEUKOCYTES IN BLOOD BY AUTOMATED COUNT 52.4 06/25 Specimen Type: BLOOD No comment entered. Ordering Provider: BOZENA MONTENEGRO Report Released Date/Time : Jul 14, 2022 10:19 AM Reporting Lab: [place] [facility] [address] [address] Performin g Lab: [place] [facility] [address] [address] 8 [facility] CBC EOSINOPHILS/1 00 LEUKOCYTES IN BLOOD BY AUTOMATED COUNT 2.7 06/25 Specimen Type: BLOOD No comment entered. Ordering Provider: BOZENA MONTENEGRO Report Released Date/Time : Jul 14, 2022 10:19 AM Reporting Lab: [place] [facility] [address] [address] Performin g Lab: [place] [facility] [address] [address] 8 [facility] CBC BASOPHILS/100 LEUKOCYTES IN BLOOD BY AUTOMATED COUNT 0.9 06/25 Specimen Type: BLOOD No comment entered. Ordering Provider: BOEZNA MONTENEGRO Report Released Date/Time : Jul 14, 2022 10:19 AM Reporting Lab: [place] [facility] [address] [address] Performin g Lab: [place] [facility] [address] [address] 8 [facility] CBC LYMPHOCYTES [#/VOLUME] IN BLOOD BY AUTOMATED COUNT 2.30 10*3/u L 0.77 - 4.50 06/25 Specimen Type: BLOOD No comment entered. Ordering Provider: BOZENA MONTENEGRO Report Released Date/Time : Jul 14, 2022 10:19 AM Reporting Lab: [place] [facility] [address] [address] Performin g Lab: [place] [facility] [address] [address] 8 [facility] CBC MONOCYTES [#/VOLUME] IN BLOOD BY AUTOMATED COUNT 0.59 10*3/u L 0.19 - 0.8 06/25 Specimen Type: BLOOD No comment entered. Ordering Provider: BOZENA MONTENEGRO Report Released Date/Time : Jul 14, 2022 10:19 AM Reporting Lab: [place] [facility] [address] [address] Performin g Lab: [place] [facility] [address] [address] [facility] CBC NEUTROPHILS [#/VOLUME] IN BLOOD BY AUTOMATED COUNT 3.49 10*3/u L 2.10 - 8.00 06/25 Specimen Type: BLOOD No comment entered. Ordering Provider: BOZENA MONTENEGRO Report Released Date/Time : Jul 14, 2022 10:19 AM Reporting Lab: [place] [facility] [address] [address] Performin g Lab: [place] [facility] [address] [address] 8 [facility] CBC EOSINOPHILS [#/VOLUME] IN BLOOD BY AUTOMATED COUNT 0.18 10*3/u L 0.00 - 0.60 06/25 Specimen Type: BLOOD No comment entered. Ordering Provider: BOZENA MONTENEGRO Report Released Date/Time : Jul 14, 2022 10:19 AM Reporting Lab: [place] [facility] [address] [address] Performin g Lab: [place] [facility] [address] [address] 8 [facility] CBC BASOPHILS [#/VOLUME] IN BLOOD BY AUTOMATED COUNT 0.06 10*3/u L 0.00 - 0.20 06/25 Specimen Type: BLOOD No comment entered. Ordering Provider: BOZENA MONTENEGRO Report Released Date/Time : Jul 14, 2022 10:19 AM Reporting Lab: [place] [facility] [address] [address] Performin g Lab: [place] [facility] [address] [address] 8 [facility] CBC IMMATURE GRANULOCYTES/ 100 LEUKOCYTES IN BLOOD BY AUTOMATED COUNT 0.5 06/25 Specimen Type: BLOOD No comment entered. Ordering Provider: BOZENA MONTENEGRO Report Released Date/Time : Jul 14, 2022 10:19 AM Reporting Lab: [place] [facility] [address] [address] Performin g Lab: [place] [facility] [address] [address] [facility] CBC IMMATURE GRANULOCYTES [#/VOLUME] IN BLOOD BY AUTOMATED COUNT 0.03 10*3/u L 0.00 - 0.05 06/25 Specimen Type: BLOOD No comment entered. Ordering Provider: BOZENA MONTENEGRO Report Released Date/Time : Jul 14, 2022 10:19 AM Reporting Lab: [place] [facility] [address] [address] Performin g Lab: [place] [facility] [address] [address] [facility] HGA1C HEMOGLOBIN A1C/HEMOGLOBI N.TOTAL IN BLOOD 6.2 4.0 - 6.0 06/25 H Specimen Type: BLOOD No comment entered. Ordering Provider: BOZENA MONTENEGRO Report Released Date/Time : Jul 14, 2022 10:19 AM Reporting Lab: [place] [facility] [address] [address] Performin g Lab: [place] [facility] [address] [address] [facility] TSH (MA-PB-STL) THYROTROPIN [UNITS/VOLUME ] IN SERUM OR PLASMA 3.423 u[IU]/ mL 0.47 - 5 06/25 Specimen Type: SERUM No comment entered. Ordering Provider: BOZENA MONTENEGRO Report Released Date/Time : Jul 14, 2022 10:19 AM Reporting Lab: [place] [facility] [address] [address] 8 Performin g Lab: [place] [facility] [address] [address] [facility] Vital Signs Combined list of inpatient and outpatient Vital Signs from Department of Defense and Veterans Affairs, ranging from 12 months to all on record, depending upon the facility. Vital Sign Value Date Comments Source SYSTOLIC BLOOD PRESSURE 146 03/23/2025 10:37:00 [place] [facility] DIASTOLIC BLOOD PRESSURE 92 03/23/2025 10:37:00 [place] [facility] PULSE OXIMETRY 94 % 03/23/2025 10:37:00 [facility] [place] [facility] WEIGHT 217.4 03/23/2025 10:37:00 [place] [facility] BMI 31 kg/m2 03/23/2025 10:37:00 [place] [facility] PAIN 2 03/23/2025 10:37:00 [place] [facility] HEIGHT 70.0 03/23/2025 10:37:00 [place] [facility] TEMPERATURE 97.6 03/23/2025 10:37:00 [place] [facility] PULSE 76 03/23/2025 10:37:00 [place] [facility] RESPIRATION 18 03/23/2025 10:37:00 [place] [facility] SYSTOLIC BLOOD PRESSURE 126 11/02/2024 14:23:04 [place] [facility] DIASTOLIC BLOOD PRESSURE 76 11/02/2024 14:23:04 [place] [facility] PULSE OXIMETRY 96 11/02/2024 14:23:04 [facility] [place] [facility] WEIGHT 220 11/02/2024 14:23:04 [place] [facility] BMI 32 kg/m2 11/02/2024 14:23:04 [place] [facility] PAIN 0 11/02/2024 14:23:04 [place] [facility] TEMPERATURE 97.8 11/02/2024 14:23:04 [place] [facility] PULSE 84 11/02/2024 14:23:04 [place] [facility] RESPIRATION 22 11/02/2024 14:23:04 [place] [facility] SYSTOLIC BLOOD PRESSURE 148 10/30/2024 11:13:00 [place] [facility] DIASTOLIC BLOOD PRESSURE 86 10/30/2024 11:13:00 [place] [facility] PULSE OXIMETRY 96 10/30/2024 11:13:00 [facility] [place] [facility] WEIGHT 218.6 10/30/2024 11:13:00 [place] [facility] BMI 31 kg/m2 10/30/2024 11:13:00 [place] [facility] TEMPERATURE 97.5 10/30/2024 11:13:00 [place] [facility] PULSE 74 10/30/2024 11:13:00 [place] [facility] RESPIRATION 17 10/30/2024 11:13:00 [place] [facility] SYSTOLIC BLOOD PRESSURE 132 07/04/2024 13:39:00 [place] [facility] DIASTOLIC BLOOD PRESSURE 84 07/04/2024 13:39:00 [place] [facility] PULSE OXIMETRY 95 07/04/2024 13:39:00 [facility] [place] [facility] WEIGHT 213.5 07/04/2024 13:39:00 [place] [facility] BMI 31 kg/m2 07/04/2024 13:39:00 [place] [facility] PAIN 0 07/04/2024 13:39:00 [place] [facility] HEIGHT 70.0 07/04/2024 13:39:00 [place] [facility] TEMPERATURE 97.6 07/04/2024 13:39:00 [place] [facility] PULSE 72 07/04/2024 13:39:00 [facility] RESPIRATION 18 07/04/2024 13:39:00 [place] [facility] Encounters Combined list of: 1) Encounters from Department of [facility] Affairs facilities going backup to the last 18 months, not all VA inpatient encounters are included; 2) Encounters from the Department of [facility] facilities going backup to 280 months. Location Location Details Encounter Type Encounter Number Reason For Visit Attending Provider ADM Date DC Date Status Disposition Source [facility] Outpatient Encounter [id number] 12/08 [facility] Outpatient Encounter [id number] 12/09 [facility] Outpatient Encounter [id number] 01/09 [facility] Outpatient Encounter [id number] 01/09 [facility] Outpatient Encounter [id number] 01/24 [facility] [place] [facility] SPECIAL SUPPLIES PHYS/QHP [id number] Diagnos is: ICD-10- CM G47.33 Obstruc tive sleep apnea (adult) ([facility] jaquan) [facility]ER B [facility] Outpatient Encounter [id number] 03/22 [facility] Encounter [id number] 03/28 [facility] Out[facility] Encounter [id number] 03/29 [facility] Outpatient Encounter [id number] 03/29 [facility] OFF/OP EST MAY X REQ PHY/QHP [id number] Diagnos is: ICD-10- CM G47.33 Obstruc tive sleep apnea (adult) ([facility] jaquan) MICHAEL PINO 03/30 [place] [facility] [place] [facility] OFF/OP EST MAY X REQ PHY/QHP [id number] Diagnos is: ICD-10- CM G47.33 Obstruc tive sleep apnea (adult) ([facility] jauqan) ALVAREZMICHAEL M 04/18 [place] [facility] Outpatient Encounter [id number] SAMMY EMMANUEL T 05/02 [facility] Outpatient Encounter [id number] 05/17 [facility] Outpatient Encounter [id number] 05/18 [facility] Outpatient Encounter [id number] Diagnos is: ICD-10- CM G47.33 Obstruc tive sleep apnea (adult) ([facility]) MICHAEL PINO 05/19 [facility] Outpatient Encounter [id number] 05/24 [facility] Out[facility] Encounter [id number] 05/25 [facility] Out[facility] Encounter [id number] 05/31 [facility] Outpatient Encounter [id number] 05/31 [facility] Outpatient Encounter [id number] 06/01 [facility] Outpatient Encounter [id number] 06/06 [facility] Outpatient Encounter [id number] 06/13 [facility] Out[facility] Encounter [id number] 06/14 [facility] Outpatient Encounter [id number] 06/19 [facility]P EST MOD 30 MIN [id number] Diagnos is: ICD-10- CM F03.90 Unsp dementi a, unsp severit y, without beh/psy ch/mood /anx Vivian MONTENEGRO 07/04 [facility] Outpatient Encounter [id number] 07/20 [facility] OFF/OP EST MAY X REQ PHY/QHP [id number] Diagnos is: ICD-10- CM Z23 Encount er for immuniz TERESITA Fraser KIRK Haynes 07/20 [facility] Outpatient Encounter [id number] 07/25 [facility] [place] [facility] SPECIAL SUPPLIES PHYS/QHP [id number] Diagnos is: ICD-10- CM G47.33 Obstruc tive sleep apnea (adult) ([facility]) KEREN RUCKER 10/16 [place] [facility] EST MAY X REQ PHY/QHP [id number] Diagnos is: ICD-10- CM R42 Dizzine ss and giddine ss BRANNON ALVARADO 10/30 [facility] Outpatient Encounter [id number] WILL CERVANTES L 11/01 [facility] OFFICE O/P EST MOD 30 MIN [id number] Diagnos is: ICD-10- CM A88.1 Epidemi c vertigo Vivian MONTENEGRO [place] 11/02 [facility] Outpatient Encounter [id number] 11/02 [facility] Outpatient Encounter [id number] 11/08 [facility] Outpatient Encounter [id number] 11/09 [facility] Out[facility] Encounter [id number] 11/09 [facility] Outpatient Encounter [id number] 11/09 [facility] Outpatient Encounter [id number] 11/09 [facility] Outpatient Encounter [id number] 11/15 [facility] Outpatient Encounter [id number] 11/24 [facility] Outpatient Encounter [id number] 11/28 [facility] Outpatient Encounter [id number] 11/28 [facility] Outpatient Encounter [id number] 11/30 [facility] [place] [facility] PH1 ASSMT&MGMT NQHP 5-10 [id number] Diagnos is: ICD-10- CM I10 Essenti al (primar y) hyperte nsion ELLI,PAOLA 12/18 [place] [facility]OP EST FEBRUARY X REQ PHY/QHP [id number] Diagnos is: ICD-10- CM H61.20 Impacte d cerumen , unspeci fied ear BRANNON ALVARADO 12/20 [facility] Outpatient Encounter [id number] 12/26 [facility] [place] [facility] [place] [place] [id number] Diagnos is: ICD-10- CM H93.13 Tinnitu s, bilater al MIO,EVIE YUSEF A 12/27 [place] [facility] FEE [id number] Diagnos is: ICD-10- CM H93.13 Tinnitu s, bilater ella LIEBERMAN,EVIE YUSEF A 12/27 [facility] Outpatient Encounter [id number] 12/30 [facility] [place] [facility] Outpatient Encounter [id number] 03/02 [place] [facility] ASSMT&MGMT NQHP 5-10 [id number] Diagnos is: ICD-10- CM G47.51 Confusi onal arousal s BRANNON ALVARADO R 03/07 [facility] Outpatient Encounter [id number] WILL CERVANTES 03/08 [facility] [place] [facility] Outpatient Encounter [id number] 03/08 [place] [facility] Outpatient Encounter [id number] 03/16 [facility] Outpatient Encounter [id number] 03/23 [facility] CB OFFICE O/P EST LOW 20 MIN [id number] Diagnos is: ICD-10- CM F03.90 Unsp dementi a, unsp severit y, without beh/psy ch/mood /anx MONI,T [place] 03/23 [facility] Outpatient Encounter [id number] 04/18 [facility] Outpatient Encounter [id number] 05/03 [facility] Outpatient Encounter [id number] 05/03 [facility] Outpatient Encounter [id number] 05/14 [facility] Outpatient Encounter [id number] 05/15 [facility] Outpatient Encounter [id number] 05/22 [facility] Outpatient Encounter [id number] 05/23 [facility] N Social History Combined list of available smoking, tobacco, and other social history from Department of Defense and Veterans Affairs facilities. Social History Type Response Date Comment Sourc e Tobacco smoking status [facility]-TOBACCO NEVER USED 07/04/2024 [facility] of tobacco use [facility] 07/08/2023 [facility] History of tobacco use [facility] NEVER USED 07/14/2022 [facility] History [facility] tobacco use [facility] US[facility] 08/13/2020 [facility] History of tobacco use [facility] NEVER USED 08/22/2019 [facility] History of tobacco use LIFETIME NON-USER OF TOBACCO 01/09/2010 [facility] Plan of Care List of future care activities from [facility] facilities. Additional future care activities may be listed in the Assessment and Plan section. Date/Time Care Activity Care Activity Detail Facili ty 06/11/2025 AMBULATORY - MEDICINE AMBULATORY - MEDICI NE [facility] Advance Directives List of completed, amended, or rescinded Advance Directives on record at [facility] facilities. An actual copy of the Directive is not included. Date Advance Directive Provider Source 11/07/2012 [employer]VANCE DIRECTIVE KIAN MORLEY [facility] 05/05/2011 ADVANCE DIRECTIVE MOHAMUD BRISENO [facility] 04/13/2011 ADVANCE DIRECTIVE DISCUSSION MOHAMUD BRISENO [facility]
--- OUTSIDE RECORDS SUMMARY | 2025-06-03 05:58 | XMS_ITS | Clinical Summary ---
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 Name Role Phone Unavailable Primary Care Provider Unavailabl e Allergies Active Allergy Reactions Criticality Noted Date Comments Diphenhydramine Hcl Rash Low 08/11/2023 Medications enalapril (VASOTEC) 5 MG tablet Take one tablet (5 mg total) by mouth 2 (two) times a day Active famotidine (PEPCID) 20 MG tablet Take one tablet (20 mg total) by mouth 2 (two) times a day Active donepeziL (ARICEPT) 10 MG tablet Take one tablet (10 mg total) by mouth nightly Active polyethylene glycol (GLYCOLAX) 17 gram oral powder packet Take seventeen g by mouth one (1) time a day Active omega-3 fatty acids (FISH OIL) 340-1,000 mg capsule Take one capsule by mouth daily with breakfast Active dicyclomine (BENTYL) 20 mg tablet Take twenty mg by mouth every 6 (six) hours Active simvastatin (ZOCOR) 80 MG tablet Take one tablet (80 mg total) by mouth nightly Active gabapentin (NEURONTIN) 100 MG capsule Take one capsule (100 mg total) by mouth 3 (three) times a day Active aspirin 81 MG EC tablet Take one tablet (81 mg total) by mouth one (1) time a day Active Active Problems No known active problems Social History Tobacco Use Types Packs/Day Years Used Date Smoking Tobacco: Never Smokeless Tobacco: Never Tobacco Cessation:Counseling Given: Not Answered Alcohol Use Standard Drinks/Week Comments Never 0 (1 standard drink = 0.6 oz pur e alcohol) Sex and Gender Information Value Date Recorded Sex Assigned at Not on file Legal Sex Male 2:32 PM CDT Gender Identity Not on file Sexual Orientation Not on file Last Filed Vital Signs Vital Sign Reading Time Taken Comments Blood Pressure 134/78 09/20/2023 9:51 AM COMMERCIAL ANALYST Pulse 67 09/20/2023 9:51 AM COMMERCIAL ANALYST Temperature 36.6 C (97.8 F) 08/11/2023 2:09 PM COMMERCIAL ANALYST Respiratory Rate 18 09/20/2023 9:51 AM COMMERCIAL ANALYST Oxygen Saturation 98% 09/20/2023 9:51 AM COMMERCIAL ANALYST Inhaled Oxygen Concentration - - Weight 95.3 kg (210 lb) 09/20/2023 9:51 AM COMMERCIAL ANALYST Height 177.8 cm (5' 10 ) 09/20/2023 9:51 AM COMMERCIAL ANALYST Body Mass Index 30.13 09/20/2023 9:51 AM COMMERCIAL ANALYST Plan of Treatment Health Maintenance Due Date Last Done Comments Annual Depression Screening 1956 Hepatitis C Antibody Screen 1964 Pneumococcal Vaccine Age 50+ (1 of 1 - PCV) 1996 RSV Immunization Pa tients or 60+ Years (1 - 1-dose 75+ series) 2021 Flu Vaccine (#1) 06/04/2025 Insurance [place] [employer] [facility] [facility]
--- OUTSIDE RECORDS SUMMARY | 2025-06-03 05:58 | XMS_ITS | Clinical Summary ---
Author Organization 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, without behavioral disturbance, psychotic disturbance, mood disturbance, or anxiety (CMS/HCC) (Primary Dx) from Last 3 Months Social History Tobacco Use Types Packs/Day Years Used Date Smoking Tobacco: Never Assessed Sex and Gender Information Value Date Recorded Sex Assigned at Not on file Legal Sex Male 12:41 PM CDT Gender Identity Not on file Sexual Orientation Not on file Plan of Treatment Upcoming Encounters Date Type Department Care Team (Late st Contact Info) Description 11/08/2025 11:30 AM PRINCIPAL LIBRARIAN Appointment [facility] [place] [address] [facility] [address] [place] [address] Vamsi Rhoades MD [address] [place] [address] Health Maintenance Due Date Last Done Comments DTAP/TDAP/TD VACCINES (1 - Tdap) 1965 PNEUMOCOCCAL VACCINE 50+ YEARS (1 of 1 - PCV) 12/24/18 97 ZOSTER VACCINE (1 of 2) 1996 RSV VACCINE (60+ or ) (1 - 1-dose 75+ series) 2021 INFLUENZA VACCINE (#1) 2025 Insurance [place] [employer]
[2025-06-03 06:00] VITALS: BP 141/87; PULSE 97; RESP 16; TEMP 36.4; O2SAT 96; BMI 30.1
--- NOTE | 2025-06-03 06:08 | CTR_ITS ---
PROCEDURE INFORMATION: Exam: CT Abdomen And Pelvis With Contrast Exam date and time: 06/03/2025 7:08 AM Age: 79 years old Clinical indication: Abdominal pain; Additional info: Abd pain TECHNIQUE: Imaging protocol: Computed tomography of the abdomen and pelvis with contrast. Radiation optimization: All CT scans at this facility use at least one of these dose optimization techniques: automated exposure control; mA and/or kV adjustment per patient size (includes targeted exams where dose is matched to clinical indication); or iterative reconstruction. Contrast material: OMNI 350; Contrast volume: 100 ml; Contrast route: INTRAVENOUS (IV); COMPARISON: CT abdomen pelvis 09/20/2019 RADIATION DOSE METRICS: Total DLP (mGy-cm): 802.33 FINDINGS: Lungs: Very minimal posterior dependent atelectasis. Coronary arteries: Atherosclerotic coronary artery calcifications are present. Liver: No acute abnormality or suspicious hepatic mass. Gallbladder and biliary ducts: No gallbladder wall thickening or biliary duct dilation. A periampullary duodenal diverticulum is present. Pancreas: No obvious acute abnormality of the pancreas. Spleen: Normal size; no suspicious masses. Adrenal glands: No suspicious adrenal masses. Kidneys and ureters: Symmetric renal cortical enhancement without hydronephrosis. A few renal lesions measuring a few mm likely represent cysts but are too small to characterize with absolute certainty. Stomach and bowel: No evidence of gastric outlet obstruction or bowel obstruction. However, there is circumferential wall thickening involving sigmoid colon in the right lower quadrant/pelvis, associated with severe diverticulosis. There is haziness and stranding in the surrounding pericolonic fat in the right lower quadrant. No free air identified. No drainable abscess identified. Appendix: No evidence of appendicitis. Intraperitoneal space: See Stomach and bowel finding. Vasculature: Aortoiliac atherosclerotic calcifications are present without aneurysmal dilation. Lymph nodes: No enlarged lymph nodes. Urinary bladder: No significant bladder wall thickening. Reproductive: Nonspecific enlargement of the prostate gland; please correlate with clinical exam and laboratory data. Bones/joints: No acute fracture. Soft tissues: Unremarkable. CT/CT abdomen pelvis w con* [id number] IMPRESSION: 1. Acute diverticulitis involving the sigmoid colon in the right pelvic region. No evidence of bowel obstruction or drainable abscess. 2. Additional findings that are incidental and/or nonacute; please see details provided above. COMMENTS: Consistent with the [employer]'s Incidental Findings Committee white paper (J Am Kandi Radiol 2018): Any incidental renal lesion less than 1 cm or classified as too small to characterize, or any incidental cystic renal lesion characterized as simple-appearing, is likely benign. No follow-up imaging is recommended for these lesions per consensus recommendations based on imaging criteria.
--- NOTE | 2025-06-03 06:24 | W.ED.ABDPA2 ---
HPI - Abdominal Pain General: Chief Complaint: Abdominal Pain Stated Complaint: low abd pain / constipated / diarhea Time Seen by Provider: 06/03/25 06:06 Source: patient Mode of arrival: ambulatory Limitations: no limitations History of Present Illness: 79-year-old male states he has been having flank pain with abdominal pain over the last few days. States pains been sharp in nature rates it a 8 out of 10. States he also been having some nausea diarrhea along with constipation and fevers. Denies any worse improving factors Associated Symptoms: Reports constipation, diarrhea and nausea; Denies chills, dysuria, fever(s) and vomiting Related Data Home Medications ?Medication ?Instructions ?Recorded ?Confirmed dicyclomine 20 mg tablet 20 mg PO BID 10/24/19 06/03/25 donepezil 10 mg tablet 10 mg PO BEDTIME 10/24/19 06/03/25 famotidine 20 mg tablet 20 mg PO BID 10/24/19 06/03/25 polyethylene glycol 3350 17 17 gm PO BEDTIME 10/24/19 06/03/25 gram/dose oral powder simvastatin 80 mg tablet 40 mg PO BEDTIME 10/24/19 06/03/25 aspirin 81 mg tablet,delayed 81 mg PO DAILY 09/21/23 06/03/25 release (Adult Aspirin Regimen) enalapril maleate 5 mg tablet 5 mg PO BID 09/21/23 06/03/25 naproxen sodium 220 mg capsule 220 mg PO BID Pain 12/29/23 06/03/25 (Aleve) ascorbic acid (vitamin C) 500 mg 250 mg PO DAILY 11/01/24 06/03/25 tablet (Vitamin C) cholecalciferol (vitamin D3) 25 25 mcg PO DAILY 11/01/24 06/03/25 mcg (1,000 unit) tablet (Vitamin D3) cyanocobalamin (vitamin B-12) 100 100 mcg PO DAILY 11/01/24 06/03/25 mcg tablet (Vitamin B-12) [id number] 1 tab PO DAILY 11/01/24 06/03/25 tablet (Multivitamin 50 Plus tablet) Previous Rx's ?Medication ?Instructions ?Recorded gabapentin 100 mg capsule 200 mg (2 x 100 mg) PO TID #180 07/25/24 caps ciprofloxacin HCl 500 mg tablet 500 mg PO BID #14 tabs 06/03/25 (Cipro) hydrocodone 5 mg-acetaminophen 325 1 tab PO Q6H PRN pain #14 tabs 06/03/25 mg tablet metronidazole 500 mg tablet 500 mg PO Q8H 7 days #21 tabs 06/03/25 ondansetron 4 mg disintegrating 4 mg PO Q6H PRN nausea and 06/03/25 tablet vomiting #14 tabs Allergies Allergy/AdvReac Type Severity Reaction Status Date / Time diphenhydramine (From Allergy Unknown Unknown Verified 05/30/25 15:18 Benadryl) omeprazole (From Prilosec) Allergy Unknown Unknown Verified 05/30/25 15:18 Review of Systems Const: Denies: fever(s), chills, body aches or change in appetite ENMT: Denies: throat pain or dental pain Card: Denies: chest pain Resp: Denies: dyspnea GI: Reports: abdominal pain, nausea, diarrhea and constipation; Denies: vomiting : Denies: dysuria Musc: Denies: neck pain or back pain Skin/Breast: Denies: rash Neuro: Denies: headache(s) PFSH ED PFSH: Medical History Abdominal pain Diverticulosis Constipation Hypertension GERD (gastroesophageal reflux disease) Hyperlipidemia IBS (irritable bowel syndrome) Major depressive disorder Hiatal hernia Dysphagia Left inguinal hernia Surgical History History of left inguinal hernia repair (~10/2019) History of colonoscopy Family History Father Cancer lung Family/Other Diabetes Hypertension sister Denies family history of Anesthesia complication Bleeding disorder Social History Smoking and tobacco/nicotine status: never used tobacco/nicotine Second hand smoke exposure: No Alcohol intake: never Substance/Drug Use: never Adopted: No Caregiver/support person: Yes Lives independently: Yes Household members: spouse Housing: House Marital status: Highest education level completed: High School Graduate service: Yes (12 years with [employer]) branch: [employer] Current occupational status: retired Current occupational exposures/hazards: No Pets and animals: No Leisure activites: exercise Sexually active: No Do you think of yourself as: Straight/Heterosexual Current gender identity: Male Tessa/Denominational: Muslim Special tessa needs: No Agree to transfusion: No Physical Exam Const: COMMON NORMALS: no acute distress, patient oriented x3 and healthy appearing HENMT: COMMON NORMALS: normocephalic and atraumatic HEAD & SCALP: normocephalic and atraumatic Neck/C-Spine: COMMON NORMALS: full ROM and supple Chest: COMMONS NORMALS: normal inspection of the chest Resp: COMMON NORMALS: normal respiratory effort, No retractions, No use of accessory muscles and clear to auscultation bilaterally AUSCULTATION: clear to auscultation bilaterally Cardio: COMMON NORMALS: regular rate, regular rhythm and No murmurs present (Cardio) RATE: regular rate RHYTHM: regular rhythm GI: COMMON NORMALS: Normal to inspection, nondistended, normoactive bowel sounds present, Soft to palpation and no masses PALPATION: Yes Soft to palpation OTHER: mild lower abd tenderness Extremity: COMMON NORMALS: normal to inspection and full ROM Neuro: COMMON NORMALS: patient oriented x3, moves all extremities and no focal motor deficits Psych: COMMON NORMALS: mental status grossly normal, Normal thought process present and cooperative THOUGHT PROCESS: Normal thought process present Skin: COMMON NORMALS: no rashes or lesions noted and no wounds GENERAL SKIN EXAM: no rashes or lesions noted Course Vital Signs: Vital signs: Vital Signs Temperature 97.5 F L 06/03/25 06:00 Pulse Rate 80 06/03/25 08:30 Respiratory Rate 18 06/03/25 06:29 Blood Pressure 118/76 06/03/25 08:30 Pulse Oximetry 92 06/03/25 08:30 Oxygen Delivery Me thod Room Air 06/03/25 06:00 MDM - Abdominal Pain Medical Decision Making Patient presents for abdominal pain CT did show diverticulitis he is afebrile here white count is normal we will treat with Shayla Viveros at home he is to follow-up with PCP he is to return if worsening he understands agrees to plan. Medical Records I reviewed the patient's medical records. Lab Data I reviewed the patient's lab results. 06/03/25 06:24 06/03/25 06:24 Labs/Radiology: Radiology Impressions Abdomen/Pelvis CT 06/03/25 06:08 IMPRESSION: 1. Acute diverticulitis involving the sigmoid colon in the right pelvic region. No evidence of bowel obstruction or drainable abscess. 2. Additional findings that are incidental and/or nonacute; please see details provided above. COMMENTS: Consistent with the [employer]'s Incidental Findings Committee white paper (J Am Kandi Radiol 2018): Any incidental renal lesion less than 1 cm or classified as too small to characterize, or any incidental cystic renal lesion characterized as simple-appearing, is likely benign. No follow-up imaging is recommended for these lesions per consensus recommendations based on imaging criteria. Laboratory Results WBC 11.70 10^3/uL (3.29-11.43) H 06/03/25 06:24 RBC 5.39 10^6/uL (3.85-5.65) 06/03/25 06:24 Hgb 15.50 g/dL (11.27-16.99) 06/03/25 06:24 Hct 47.3 % (37-53) 06/03/25 06:24 MCV 87.8 fl (82-101) 06/03/25 06:24 MCH 28.8 pg (27-33) 06/03/25 06:24 MCHC 32.8 g/dL (30-55) 06/03/25 06:24 RDW 12.2 % (12.1-15.1) 06/03/25 06:24 Plt Count 277 10^3/cmm (157-399) 06/03/25 06:24 MPV 8.8 fL (7.4-10.4) 06/03/25 06:24 Neut % (Auto) 71.5 % 06/03/25 06:24 Lymph % (Auto) 15.6 % 06/03/25 06:24 [place] % (Auto) 10.0 % 06/03/25 06:24 Eos % (Auto) 1.4 % 06/03/25 06:24 Baso % (Auto) 0.7 % 06/03/25 06:24 Neut # (Auto) 8.37 10^3/uL (1.8-7.7) H 06/03/25 06:24 Lymph # (Auto) 1.8 10^3/uL (0.8-4.8) 06/03/25 06:24 [place] # (Auto) 1.2 10^3/uL (0.2-0.9) H 06/03/25 06:24 Eos # (Auto) 0.2 10^3/uL (0.0-0.8) 06/03/25 06:24 Baso # (Auto) 0.1 10^3/uL (0.0-0.1) 06/03/25 06:24 Nucleated RBC % (auto) 0 % 06/03/25 06:24 Nucleated RBCs # 0.0 /100WBC 06/03/25 06:24 Sodium 134 mmol/L (136-145) L 06/03/25 06:24 Potassium 4.6 mmol/L (3.5-5.1) 06/03/25 06:24 Chloride 97 mmol/L (98-107) L 06/03/25 06:24 Carbon Dioxide 24 mmol/L (22-29) 06/03/25 06:24 Anion Gap 17.6 (5-19) 06/03/25 06:24 BUN 10 mg/dL (8-23) 06/03/25 06:24 Creatinine 0.9 mg/dL (0.7-1.2) 06/03/25 06:24 GFR Calculation Not Reportable 06/03/25 06:24 Glucose 110 mg/dL (65-115) 06/03/25 06:24 Calculated Osmolality 278 mOsm/kg (285-295) L 06/03/25 06:24 Calcium 9.8 mg/dL (8.5-10.5) 06/03/25 06:24 Total Bilirubin 0.5 mg/dL (0.15-1.2) 06/03/25 06:24 AST 24 U/L (0-40) 06/03/25 06:24 ALT 27 U/L (0-41) 06/03/25 06:24 Alkaline Phosphatase 75 U/L (40-130) 06/03/25 06:24 C-Reactive Protein 75.9 mg/L (0.0-4.9) H 06/03/25 06:24 Total Protein 8.4 g/dL (6.6-8.7) 06/03/25 06:24 Albumin 3.9 g/dL (3.5-5.2) 06/03/25 06:24 Globulin 4.5 g/dL (1.3-4.6) 06/03/25 06:24 Lipase 37 U/L (13-60) 06/03/25 06:24 Urine Color Yellow (Yellow) 06/03/25 07:22 Urine Appearance Clear (CLEAR) 06/03/25 07:22 Urine pH 6.0 (5-7) 06/03/25 07:22 Ur Specific [place] 1.020 (1.005-1.030) 06/03/25 07:22 Urine Protein Negative (Negative) 06/03/25 07:22 Urine Glucose (UA) Negative (Normal) 06/03/25 07:22 Urine Ketones Negative (Negative) 06/03/25 07:22 Urine Blood Negative (Negative) 06/03/25 07:22 Urine Nitrate Negative (Negative) 06/03/25 07:22 Urine Bilirubin Negative (Negative) 06/03/25 07:22 Urine Urobilinogen 0.2 mg/dL (Negative) 06/03/25 07:22 Ur Leukocyte Esterase Negative (Negative) 06/03/25 07:22 Urine RBC 0-2 /hpf (0-2) 06/03/25 07:22 Urine WBC 0-5 /hpf (0-5) 06/03/25 07:22 Ur Squamous Epith Cells 0-5 /hpf (0-5) 06/03/25 07:22 Amorphous Sediment Not Reportable 06/03/25 07:22 Urine Bacteria None seen /hpf (NONE) 06/03/25 07:22 Hyaline Casts 0-4 /lpf H 06/03/25 07:22 All radiology interpretation(s) finalized by discharge Discharge Plan Discharge Patient Disposition: Home Clinical Impression: Diverticulitis Condition: Stable Prescriptions: New hydrocodone-acetaminophen 5-325 mg tablet 1 tab PO Q6H PRN (Reason: pain) Qty: 14 0RF metronidazole 500 mg tablet 500 mg PO Q8H 7 Days Qty: 21 0RF ciprofloxacin HCl [Cipro] 500 mg tablet 500 mg PO BID Qty: 14 0RF ondansetron 4 mg tablet,disintegrating 4 mg PO Q6H PRN (Reason: nausea and vomiting) Qty: 14 0RF No Action donepezil 10 mg tablet 10 mg PO BEDTIME famotidine 20 mg tablet 20 mg PO BID polyethylene glycol 3350 17 gram/dose powder 17 gm PO BEDTIME simvastatin 80 mg tablet 40 mg PO BEDTIME dicyclomine 20 mg tablet 20 mg PO BID naproxen sodium [Aleve] 220 mg capsule 220 mg PO BID aspirin [Adult Aspirin Regimen] 81 mg tablet,delayed release (DR/EC) 81 mg PO DAILY enalapril maleate 5 mg tablet 5 mg PO BID gabapentin 100 mg capsule 200 mg PO TID Qty: 180 11RF cyanocobalamin (vitamin B-12) [Vitamin B-12] 100 mcg Tablet 100 mcg PO DAILY ascorbic acid (vitamin C) [Vitamin C] 500 mg Tablet 250 mg PO DAILY Multivitamin 50 Plus Tablet 1 tab PO DAILY cholecalciferol (vitamin D3) [Vitamin D3] 25 mcg (1,000 unit) Tablet 25 mcg PO DAILY Discharge Orders: Discharge ED (Routine); Ordered 06/03/25 Ordered By: Rogelio Tillman Referrals: Grace Lam MD [Primary Care Provider, Family Practice] Andrew Fulton MD [Physician, General Surgery] - 4-7 days Discharge Diet: Advance as tolerated Discharge Activity: Resume usual activity Patient Instructions: Diverticulitis (ED) Print Language: Bhutanese Coding Level of Care Code ED School Age Lead Teacher for Neeta Bucio
[2025-06-03 06:29] VITALS: RESP 18
[2025-06-03] MEDS: morphine 4 mg/mL SDV 1 mL IVP (06:29)
[2025-06-03] MEDS: ondansetron 2 mg/ML SDV 2 mL 4 MG IVP (06:29)
[2025-06-03 06:39] LABS: Hematocrit 47.3 % (37-53); Hemoglobin 15.50 g/dL (11.27-16.99); Mean Corpuscular HGB Conc 32.8 g/dL (30-55); Mean Corpuscular Hemoglobin 28.8 pg (27-33); Mean Corpuscular Volume 87.8 fl (82-101); Nucleated Red Blood Cells % 0 %; Platelet Count 277 10^3/cmm (157-399); Red Blood Count 5.39 10^6/uL (3.85-5.65); White Blood Count 11.70 10^3/uL (3.29-11.43)
[2025-06-03 06:51] LABS: Alanine Aminotransferase 27 U/L (0-41); Albumin Level 3.9 g/dL (3.5-5.2); Alkaline Phosphatase 75 U/L (40-130); Anion Gap 17.6 (5-19); Aspartate Amino Transferase 24 U/L (0-40); Blood Urea Nitrogen 10 mg/dL (8-23); Calcium 9.8 mg/dL (8.5-10.5); Carbon Dioxide 24 mmol/L (22-29); Chloride 97 mmol/L (98-107); Creatinine Clr Calc Pharmacy 78.3626; Globulin 4.5 g/dL (1.3-4.6); Glucose 110 mg/dL (65-115); Lipase 37 U/L (13-60); Osmolality Calculated 278 mOsm/kg (285-295); Potassium 4.6 mmol/L (3.5-5.1); Sodium 134 mmol/L (136-145); Total Protein 8.4 g/dL (6.6-8.7)
[2025-06-03] MEDS: iohexol 350 mg/mL 500 mL Btl (per mL) IV (07:07)
[2025-06-03 07:34] LABS: Glucose Urine UA Negative (Normal); Nitrate Urine Negative (Negative); Specific Gravity, Urine 1.020 (1.005-1.030)
[2025-06-03 07:37] LABS: Add Urine Microscopic? YES
[2025-06-03 07:38] VITALS: BP 127/78; PULSE 80; O2SAT 91
[2025-06-03 08:00] VITALS: BP 115/70; PULSE 76; O2SAT 95
--- NOTE | 2025-06-03 08:26 | PC.PHAR ---
[facility] with [facility] of current Medications
[2025-06-03 08:30] VITALS: BP 118/76; PULSE 80; O2SAT 92
[2025-06-03 09:00] VITALS: BP 125/84; PULSE 79; O2SAT 96
--- NOTE | 2025-06-04 08:34 | DCPLANNER ---
messaged gen surg for er f/u
== END 2025-06-03 09:02 | disposition home or self-care (01) ==
PROVIDERS: Emergency Medicine; Emergency Provider Emergency Medicine; PCP Family Medicine
DX: K57.32 Diverticulitis of large intestine without perforation or abscess without bleeding (principal); K21.9 Gastro-esophageal reflux disease without esophagitis; K58.9 Irritable bowel syndrome, unspecified
CPT/HCPCS: 74177; 80053; 81001; 83690; 85025; 86140; 96374; 96375; 99285; J2270; J2405